=== PATIENT | female | born 1960 | race Caucasian/White ===

== ENCOUNTER 2016-11-01 05:17 | Day surgery (SDC) | payer BC ==
[2016-10-25 14:09] VITALS: BMI 32.0
[~2016-11-01] VITALS: Ht 165.1 cm; Wt 88.6 kg
[~2016-11-01 05:17] MED LIST: COUMADIN PO; LORA-741 PO; LOSARTAN PO; LOVENOX INJ; METF-841 PO; MULT-506 PO; OXYC1TAB3 PO; TRAM-10 PO; ZOLOFT PO; ZOLP5TAB PO
[2016-11-01 05:42] VITALS: BP 138/68; PULSE 79; TEMP 37.2; O2SAT 94; Ht 165.1 cm; Wt 88.6 kg
[2016-11-01 05:56] LABS: PARTIAL THROMBOPLASTIN RATIO 1.3; PROTHROMBIN TIME (PATIENT) 10.4 SECONDS (9.0-12.0)
[2016-11-01] MEDS ORDERED: CEFAZOLIN 2000 MG/60 ML D5W IV SCH (06:00)
[2016-11-01] MEDS ORDERED: LACTATED RINGER'S 1000ML 1,000 ML IV SCH (06:00)
--- NOTE | 2016-11-01 06:11 | History and Physical ---
History & Physical Date Nov 01, 2016. History of Present Illness The patient is a 56 year old female with h/o recurrent endometrial Ca for access port. followed by Dr Dickerson ([facility]) Past Medical/Surgical History Medical Problems: (1) Cholecystectomy (2) History of - section (3) History of - hysterectomy Additional History Kidney Disease: Yes Other: - Nephrostomy tube - DVT RLE- coumadin/ Lovenox Allergies Coded Allergies: No Known Allergies (Unverified , OTHER, 11/01/16) ' Home Medications Scheduled Metformin HCl (Metformin HCl ER), 1,000 MG PO BID Multivitamin (Multivitamin), 1 TAB PO QAM Tramadol (Ultram), 50 MG PO Q4-6H Zolpidem Tartrate (Ambien), 5 MG PO HS [Coumadin], 1 TAB PO QPM [Losartan], 1 TAB PO QAM [Lovenox], 0.9 ML INJ BID [Zoloft], 1 TAB PO HS Scheduled PRN Lorazepam (Ativan), 0.5 MG PO Q8 PRN Oxycodone Ir (Roxicodone Ir), 5 MG PO Q6H PRN for Pain Physical Examination Skin: warm/dry, no rash Eyes: sclerae normal Head: atraumatic Neck: supple Respiratory/Chest: no respiratory distress Cardiovascular: regular rate, rhythm Extremities: normal inspection Neurologic/Psych: alert Diagnosis Recurrent endometrial Ca for port Plan of Treatment For access port
[2016-11-01] MEDS ORDERED: THROMBIN FOR SOLN 20000 UNIT KIT ONE (06:31)
[2016-11-01] MEDS ORDERED: LIDOCAINE HCL 1% 20 ML VIAL ONE (06:31)
[2016-11-01] MEDS ORDERED: CEFAZOLIN SOD 1 GM VIAL ONE (06:31)
[2016-11-01] MEDS ORDERED: HEPARIN SOD (PORCINE) 1000 UNIT/ML 10 ML VIAL ONE (06:31)
[2016-11-01] MEDS ORDERED: MIDAZOLAM HCL 1 MG/ML 2ML VIAL ONE ×2 (07:11→07:15)
[2016-11-01] MEDS ORDERED: FENTANYL CITRATE INJ 50 MCG/1 ML 2 ML VIAL ONE (07:18)
[2016-11-01] MEDS ORDERED: PROPOFOL IV EMULSION 10 MG/ML 20 ML VIAL IV ONE (07:23)
--- NOTE | 2016-11-01 07:46 | Discharge Instructions ---
Discharge Instructions Visit Reason for Visit: Uterine Cancer, Diabetes Discharge Discharge Diagnosis / Problem: A-port placement Discharge Goals Goal(s): Improve disease control Activity Recommendations Activity Limitations: as noted below Shower/Bathe: keep incision dry (for 2 days) Anesthesia . Post Anesthesia Instructions: If you have had General Anesthesia or IV Sedation: * Do not drive today. * Resume driving when surgeon permits. * Do not make important decisions or sign legal documents today. * Call surgeon for: 1. Temperature elevations greater than 101 degrees F. 2. Uncontrollable pain. 3. Excessive bleeding. 4. Persistent nausea and vomiting. 5. Medication intolerance (nausea, vomiting or rash). * For nausea and vomiting use only clear liquids such as: tea, soda, bouillon until nausea subsides, then gradually increase diet as tolerated. * If you have any concerns or questions, call your surgeon's office. If physician is unavailable and it is an emergency, call 911 or go to the nearest emergency room. . Instructions / Follow-Up Instructions / Follow-Up Dr. Stewart's office in 2 weeks for suture removal, [phone] Diet Recommendations Recommended Home Diet: no limitations Pending Studies Studies pending at discharge: no Medical Emergencies . Who to Call and When: Medical Emergencies: If at any time you feel your situation is an emergency, please call 911 immediately. . Non-Emergent Contact Non-Emergency issues call your: Surgeon Call Non-Emergent contact if: you have a fever, temperature is above 101.5, your pain is unusual for you, wound has increased redness . . "Provider Documentation" section prepared by Obie Smith.
[2016-11-01] MEDS ORDERED: FLUMAZENIL 0.1 MG/1 ML 10 ML VIAL IV PRN (08:00)
[2016-11-01] MEDS ORDERED: EpHEDrine SULFATE INJ 50 MG/ML AMP IV PRN (08:00)
[2016-11-01] MEDS ORDERED: ONDANSETRON INJ 2 MG/ML 2 ML VIAL IV PRN ×2 (08:00→08:15)
[2016-11-01] MEDS ORDERED: NALOXONE HCL 0.4 MG/1 ML VIAL/CARP IV PRN (08:00)
[2016-11-01] MEDS ORDERED: PROMETHAZINE HCL INJ 12.5 MG in SODIUM CHLORIDE 0.9% 50ML 50 ML IV PRN (08:00)
[2016-11-01] MEDS ORDERED: FENTANYL CITRATE INJ 50 MCG/1 ML 2 ML VIAL IV PRN (08:00)
[2016-11-01] MEDS ORDERED: ATROPINE SULFATE 0.1 MG/ML 5ML SYR IV PRN (08:00)
[2016-11-01] MEDS ORDERED: LABETALOL HCL IV 5 MG/ML 20ML IV PRN (08:00)
--- NOTE | 2016-11-01 08:05 | [facility] Post Operative Brief Note ---
Immediate Operative Summary Operative Date Nov 01, 2016. Pre-Operative Diagnosis Endometrial Cancer with METS Post-Operative Diagnosis Endometrial Cancer with METS Procedure(s) Performed Aport Insertion Surgeon Dr. Stewart Enrollment Services Dean Surgeon(s) none Estimated Blood Loss 10cc Findings placed via Lt cephalic vein Specimens none per surgeon Anesthesia local/ sedation Complication(s) None Disposition Recovery Room / PACU
[2016-11-01] MEDS ORDERED: HYDR-5688 PO (08:08)
[2016-11-01] MEDS ORDERED: HYDROCODONE/ACETAMOPHEN 5/325MG TAB PO PRN ×2 (08:15)
--- NOTE | 2016-11-01 08:22 | Anesthesiology Progress Note ---
Anesthesia Post Op Note Date & Time Nov 01, 2016 at 08:22 Vital Signs Pain Intensity: 0 Vital Signs Past 12 Hours Date Time Temp Pulse Resp B/P Pulse Ox O2 Delivery O2 Flow Rate FiO2 11/01/16 08:04 36.2 68 17 111/63 96 Nasal Cannula 2 11/01/16 05:42 37.2 79 18 138/68 94 Room Air Notes Mental Status: alert / awake / arousable, participated in evaluation Pt Amnestic to Procedure: Yes Nausea / Vomiting: adequately controlled Pain: adequately controlled Airway Patency, RR, SpO2: stable & adequate BP & HR: stable & adequate Hydration State: stable & adequate Anesthetic Complications: no major complications apparent
--- NOTE | 2016-11-01 08:28 | DIAGNOSTIC IMAGING REPORT ---
SINGLE VIEW CHEST CLINICAL HISTORY: Infusion port placement. FINDINGS: An AP, portable, upright chest radiograph is obtained. No prior studies are available for comparison at the time of dictation. The examination is degraded by portable technique, large body habitus, and patient rotation. A left subclavian central venous infusion port has been placed. The tip of the catheter projects over the SVC. The cardiomediastinal silhouette is unremarkable. Nonspecific interstitial thickening is noted. Linear atelectasis is seen at the left lung base. The lungs and pleural spaces are otherwise clear. No pneumothorax is seen. The skeletal structures are osteopenic. Degenerative change is noted throughout the thoracic spine. There is calcific tendinopathy is noted in the left shoulder. IMPRESSION: 1. A left subclavian central venous infusion port has been placed. No pneumothorax is seen post procedure. 2. There is no airspace consolidation or pleural effusion. Electronically signed by: Jacek Ramirez M.D. 11/01/2016 8:26 AM Dictated Date/Time: 11/01/2016 8:25 AM
[2016-11-01 08:42] VITALS: BP 108/56; PULSE 66; TEMP 37.2; O2SAT 95
[2016-11-01 09:15] VITALS: BP 116/50; PULSE 77; TEMP 36.9; O2SAT 96
--- NOTE | 2016-11-01 16:22 | OPERATIVE REPORT ---
DATE OF OPERATION: 11/01/2016 NAME OF OPERATION: Access port placement. PREOPERATIVE DIAGNOSIS: Recurrent endometrial cancer. POSTOPERATIVE DIAGNOSIS: Same. STAFF SURGEON: Dr. Stewart. ANESTHESIA: 1% plain lidocaine with sedation. DESCRIPTION OF PROCEDURE: The patient was brought in the operating room and placed on the operating table in supine position. Her chest was prepped and draped in usual fashion. The left chest was approached, 1% plain lidocaine was used to anesthetize the skin and subcutaneous tissue over the left deltopectoral groove. Incision was made, carrying dissection down through significant adipose tissue, identifying the cephalic vein, it was ligated distally using 2-0 silk suture. It was then opened and a catheter passed under fluoroscopy into the distal superior vena cava. It was then secured using 2-0 silk suture. The catheter was aspirated and flushed with heparinized solution. Pocket was fashioned in the subcutaneous tissue, the port then attached to the catheter, placed into the pocket, secured using 3-0 Prolene suture. The port was aspirated and flushed with heparinized solution. The site was irrigated with antibiotic solution. Subcutaneous tissue reapproximated using 2-0 chromic catgut suture, then the skin reapproximated using 4-0 nylon suture. Dressing applied and patient transferred to recovery room in stable condition. I attest to the content of the Intraoperative Record and any orders documented therein. Any exceptio ns are noted below.
[2017-02-14] MEDS ORDERED: NRN300 PO (15:14)
[2017-02-14] MEDS ORDERED: CYM30 PO (15:14)
[2017-02-14] MEDS ORDERED: OXYC1TAB3 PO (15:14)
[2017-02-14] MEDS ORDERED: MRPSR15 PO (15:14)
[2017-02-14] MEDS ORDERED: CPR500 PO (15:19)
[2017-03-13] MEDS ORDERED: GABA-113 PO (08:06)
[2017-03-13] MEDS ORDERED: OXYC1TAB3 PO (08:06)
[2017-03-13] MEDS ORDERED: CYM/30 PO (08:07)
[2017-04-13] MEDS ORDERED: PRLSR20 PO (10:53)
[2017-04-13] MEDS ORDERED: CYCL10TA6 PO (10:53)
[2017-04-13] MEDS ORDERED: OXYC20TA50 PO (10:53)
[2017-04-13] MEDS ORDERED: GABA-113 PO (10:53)
[2017-04-13] MEDS ORDERED: SENN-61 PO (10:53)
[2017-04-13] MEDS ORDERED: FAMO20TA11 PO (10:53)
[2017-04-13] MEDS ORDERED: ACET-1311 PO (10:53)
[2017-04-13] MEDS ORDERED: ENOX80IN SQ (10:53)
[2017-04-23] MEDS ORDERED: FNTTP50 TD (14:20)
== END 2016-11-01 09:38 | disposition home or self-care (01) ==
LOC: C.ACU 05:17
PROVIDERS: ATTEND Surgery
DX: C54.1 Malignant neoplasm of endometrium (principal); I82.409 Acute embolism and thrombosis of unspecified deep veins of unspecified lower extremity; E11.9 Type 2 diabetes mellitus without complications; Z90.710 Acquired absence of both cervix and uterus; Z98.890 Other specified postprocedural states; Z79.01 Long term (current) use of anticoagulants

== ENCOUNTER 2017-01-27 16:07 | Emergency (ER) | payer BC ==
[~2017-01-27 16:07] MED LIST changes: +HYDR-5688 PO
[2017-01-27 16:13] VITALS: TEMP 36.8; Ht 162.6 cm
--- NOTE | 2017-01-27 17:15 | EMERGENCY ROOM VISIT NOTE ---
History Report prepared by Kina: Brant Mittal Under the Supervision of: Dr. Luis Alfredo Ram M.D. First contact with patient: 16:16 Chief Complaint: HAND PAIN/INJURY Stated Complaint: L HAND NUMB History of Present Illness The patient is a 56 year old female who presents to the Emergency Room with complaints of worsening left handed numbness that began earlier today. She states that she was doing her makeup earlier this afternoon when she suddenly started experiencing numbness in the hand. The patient denies any recent traumatic injury and still has full range of motion. 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 She also admits to a history of reoccurring uterine cancer, which is being treated with chemotherapy every three weeks. She reports that the last time she had chemotherapy was approximately one week ago. She denies any surgery for treatment stating "it hasn't come to that yet". The patient also reports that she has a nephrostomy tube placed in her back that was changed yesterday at [facility] in [place]. She follows with Dr. Coles of Oncology in [place] and Dr. Johan Dickerson here in [place]. The patient states that she recently began seeing a physical therapist for lymphedema in her legs and notes she is diabetic. She takes Metformin, but denies checking her levels recently as she states she finds out her BSG when she has labs drawn before chemotherapy. Source of History: patient, friend Onset: prior to arrival Position: hand (left) Symptom Intensity: 0/10 Quality: numbness Review of Systems See HPI for pertinent positives & negatives. A total of 10 systems reviewed and were otherwise negative. Past Medical & Surgical Medical Problems: (1) Cholecystectomy (2) History of - section (3) History of - hysterectomy Family History Cancer Gallbladder disease Heart disease Kidney stones Social History Smoking Status: Never Smoker Alcohol Use: occasionally Drug Use: none Marital Status: Housing Status: lives with family Occupation Status: employed Current/Historical Medications Scheduled Metformin HCl (Metformin HCl ER), 1,000 MG PO BID Multivitamin (Multivitamin), 1 TAB PO QAM Tramadol (Ultram), 50 MG PO Q4-6H Zolpidem Tartrate (Ambien), 5 MG PO HS [Coumadin], 1 TAB PO QPM [Losartan], 1 TAB PO QAM [Lovenox], 0.9 ML INJ BID [Zoloft], 1 TAB PO HS Scheduled PRN Hydrocodone/Acetaminophen 5MG/325MG ([place] 5MG/325MG), 1-2 TABLET PO q 6 hrs PRN for Pain Lorazepam (Ativan), 0.5 MG PO Q8 PRN Oxycodone Ir (Roxicodone Ir), 5 MG PO Q6H PRN for Pain Allergies Coded Allergies: No Known Allergies (Unverified , OTHER, 11/01/16) ' Physical Exam Vital Signs Date Time Temp Pulse Resp B/P Pulse Ox O2 Delivery O2 Flow Rate FiO2 01/27/17 17:24 90 18 107/52 99 01/27/17 16:13 36.8 103 20 135/74 98 Room Air Physical Exam GENERAL: Patient is a healthy-appearing well-nourished HEAD: Normocephalic atraumatic EYES: Ocular movements intact pupils equal and react to light OROPHARYNX mucous membranes are moist no exudates present no erythema or edema present NECK: Supple no nuchal rigidity CHEST: Good equal expansion LUNGS: Clear and equal to auscultation CARDIAC: Normal S1 and S2 ABDOMEN: Soft nontender no guarding BACK: No CVA tenderness EXTREMITIES: Good range of motion, good merchandise presentation associate. Neurovascularly intact. Good capillary refill, good strength of wrist, elbow and shoulder. No clubbing, cyanosis or edema. NEURO: Patient is following commands is answering questions appropriately. Alert and oriented x3 Cranial Nerves 2-12 grossly intact Medical Decision & Procedures Laboratory Results Test 01/27/17 16:59 Bedside Glucose 152 mg/dl (70-90) Labs reviewed by ED physician. ED Course 1620: Past medical records reviewed. The patient was evaluated in room B05. A complete history and physical examination was performed. 1717: I reevaluated the patient and she is doing well. I discussed her results and discharge instructions and she verbalized complete understanding and agreement. Medical Decision Blood Pressure Screening: Patient was found to have an elevated blood pressure and was referred to their primary care doctor for recheck and further treatment Medication Reconciliation: I attest that I have personally reviewed the patient' s current medication list. This is a 56-year-old female who presents emergency department complaining of left hand numbness. The patient is currently receiving chemotherapy and was warned of neuropathies that were going to develop in her extremities. She has no evidence of weakness in her manager deli strength is actually equal she has good capillary refill. The patient's blood sugar is slightly elevated and she does not wish to be placed and steroids. She was placed in a cock-up splint and I recommended we follow-up with both oncology as well as the orthopedics. Patient family were in agreement with the treatment plan. Impression Primary Impression: Numbness of left hand Scribe Attestation The scribe's documentation has been prepared under my direction and personally reviewed by me in its entirety. I confirm that the note above accurately reflects all work, treatment, procedures, and medical decision making performed by me. Departure Information Dispostion Home / Self-Care Referrals Romario Gaspar M.D. (PCP) Patient Instructions My [facility] Additional Instructions Follow up with Dr Paniagua's office Sunday; Dr Dickerson's office Sunday You were found to have an elevated blood pressure today (>120 sytolic or >90 diastolic). Per medicare guidelines, you need to follow up with this blood pressure screening with your Primary Care Physician (PCP). For a new PCP call [phone]. You have been examined and treated today on an emergency basis only. This is not a substitute for, or an effort to provide, complete comprehensive medical care. It is impossible to recognize and treat all injuries or illnesses in a single emergency department visit. It is therefore important that you follow up closely with Dr Gaspar. Call as soon as possible for an appointment. Thank you for your time and consideration. I look forward to speaking with you again soon. Please don't hesitate to call us if you have any questions.
[2017-01-27 17:24] VITALS: BP 107/52; PULSE 90; O2SAT 99
[2017-02-14] MEDS ORDERED: CYM30 PO (15:14)
[2017-02-14] MEDS ORDERED: NRN300 PO (15:14)
[2017-02-14] MEDS ORDERED: MRPSR15 PO (15:14)
[2017-02-14] MEDS ORDERED: OXYC1TAB3 PO (15:14)
[2017-02-14] MEDS ORDERED: CPR500 PO (15:19)
[2017-03-13] MEDS ORDERED: GABA-113 PO (08:06)
[2017-03-13] MEDS ORDERED: OXYC1TAB3 PO (08:06)
[2017-03-13] MEDS ORDERED: CYM/30 PO (08:07)
[2017-04-13] MEDS ORDERED: ACET-1311 PO (10:53)
[2017-04-13] MEDS ORDERED: FAMO20TA11 PO (10:53)
[2017-04-13] MEDS ORDERED: ENOX80IN SQ (10:53)
[2017-04-13] MEDS ORDERED: SENN-61 PO (10:53)
[2017-04-13] MEDS ORDERED: GABA-113 PO (10:53)
[2017-04-13] MEDS ORDERED: PRLSR20 PO (10:53)
[2017-04-13] MEDS ORDERED: CYCL10TA6 PO (10:53)
[2017-04-13] MEDS ORDERED: OXYC20TA50 PO (10:53)
[2017-04-23] MEDS ORDERED: FNTTP50 TD (14:20)
== END 2017-01-27 17:27 | disposition home or self-care (01) ==
LOC: C.EDB 16:09
DX: R20.2 Paresthesia of skin (principal); Z93.6 Other artificial openings of urinary tract status; Z90.710 Acquired absence of both cervix and uterus; Z90.49 Acquired absence of other specified parts of digestive tract; Z79.4 Long term (current) use of insulin; Z79.01 Long term (current) use of anticoagulants; Z79.899 Other long term (current) drug therapy; Z80.9 Family history of malignant neoplasm, unspecified; Z83.79 Family history of other diseases of the digestive system; Z82.49 Family history of ischemic heart disease and other diseases of the circulatory system; Z84.1 Family history of disorders of kidney and ureter

== ENCOUNTER 2017-02-09 09:54 | Inpatient (IN) | payer BC ==
[~2017-02-09] VITALS: Ht 165.1 cm; Wt 78.7 kg
[2017-02-09] VITALS (13 sets, daily range): BP systolic 120–158; BP diastolic 64–84; PULSE 78–96; TEMP 36.7–37.5; O2SAT 94–100; BMI 29.6
[2017-02-09] MEDS ORDERED: MoRPHine SULFATE 4 MG/ML 1 ML CARP\\VIAL IV STA (10:33)
[2017-02-09] MEDS ORDERED: ONDANSETRON INJ 2 MG/ML 2 ML VIAL IV STA (10:33)
[2017-02-09] MEDS ORDERED: SODIUM CHLORIDE 0.9% 1000ML 1,000 ML IV STA (10:33)
[2017-02-09] MEDS ORDERED: SODIUM CHLORIDE 0.9% 1000ML 1,000 ML IV ONE (10:33)
--- NOTE | 2017-02-09 10:34 | EMERGENCY ROOM VISIT NOTE ---
History Report prepared by Kina: Lexus Birch Under the Supervision of: Dr. Sridhar Wong M.D. First contact with patient: 10:17 Chief Complaint: PAIN (GENERALIZED) Stated Complaint: PAIN ALL OVER History of Present Illness The patient is a 56 year old female who presents to the Emergency Room with complaints of persistent generalized pain that began two days ago. She currently rates her discomfort as a 6/10 in severity. The patient reports that she has a history of endometrial cancer, stating that she was diagnosed in August. She states that the cancer is in her lymph nodes which has caused damage to her ureter. The patient states that she has had a nephrostomy tube placed on her right flank. She reports that after a scheduled cleaning 2 weeks ago she has noticed intermittent low-grade fevers at night. The patient states that two days ago she went to [place] after noticing a yellow and red discharge from her nephrostomy tube site. The patient states that she had her tube replaced and notes that the tube has worked fine since then. She reports that she has noticed back pain, abdominal pain, flank pain, and groin pain since the replacement. The patient states that she has had hematuria. She denies any chest pain, cough, nausea or vomiting. The patient reports that she takes Lovenox daily due to her history of DVT. The patient states that her last chemotherapy treatment was three weeks ago, and was supposed to have a treatment today. She states that she is now scheduled to have her next chemotherapy treatment next week. Source of History: patient Onset: two days ago Position: other (generalized) Symptom Intensity: 6/10 Timing: other (persistent) Associated Symptoms: + abdominal pain, + back pain, + urinary symptoms ( hematuria), No cough, No chest pain, No nausea, No vomiting Note: Associated Symptoms: flank pain, groin pain Review of Systems See HPI for pertinent positives & negatives. A total of 10 systems reviewed and were otherwise negative. 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 Nurse's notes were reviewed and I agree with. Family History Cancer Gallbladder disease Heart disease Kidney stones Social History Smoking Status: Never Smoker Alcohol Use: occasionally Drug Use: none Marital Status: Housing Status: lives with family Occupation Status: employed Current/Historical Medications Scheduled Cephalexin Monohydrate (Keflex), 500 MG PO BID Dexamethasone (Decadron), 20 MG PO DIRECTED Docusate Sodium (Docusate Sodium), 50 MG PO BID Enoxaparin (Lovenox), 0.9 ML SQ Q12 Lorazepam (Ativan), 0.5 MG PO Q6 Losartan Potassium (Cozaar), 50 MG PO DAILY Metformin HCl (Metformin HCl ER), 1,000 MG PO BID Morphine Cont Rel (Ms Contin), 15 MG PO Q12 Polyethylene Glycol 3350 (Miralax), 17 GM PO DAILY Sertraline (Zoloft), 50 MG PO DAILY Scheduled PRN Ondansetron Hcl (Zofran), 8 MG PO TID PRN for Nausea Oxycodone Ir (Roxicodone Ir), 5 MG PO Q6H PRN for Pain Prochlorperazine Maleate (Compazine), 10 MG PO Q6H PRN for Nausea Zolpidem Tartrate (Ambien), 10 MG PO HS PRN for Sleep Allergies Coded Allergies: No Known Allergies (Unverified , OTHER, 11/01/16) ' Physical Exam Vital Signs Date Time Temp Pulse Resp B/P (MAP) Pulse Ox O2 Delivery O2 Flow Rate FiO2 02/09/17 12:55 98 Room Air 02/09/17 11:56 82 20 129/62 98 Room Air 02/09/17 09:57 36.6 91 20 131/69 99 Room Air Physical Exam General: Well developed well nourished intermittent teary eyed middle aged female who has multiple complaints, in no acute distress, breathing comfortably on room air. Normal speech HEENT: Normal cephalic atraumatic. Pupils are equal round and reactive to light. Extraocular movements are intact. Oropharynx is pink with moist mucous membranes. No swelling of the mouth lips or tongue. Neck: Supple with a midline trachea. No meningeal signs or stiffness, no JVD or bruits. No Stridor. Chest: Clear to auscultation bilaterally. No wheezes or rhonchi. No increased work of breathing. Heart: regular rate and rhythm. Abdomen: Soft nontender, nondistended without rebound guarding or rigidity. Extremities: No cyanosis clubbing or edema. No calf tenderness or assymetry Spine/Back. Nephrostomy tube in right flank, no redness, warmth, or drainage. Non tender to palpation. No CVA tenderness Skin: Good turgor without rashes. Neurologic exam: Cranial nerves two through 12 are intact. Motor and sensation are intact and symmetrical throughout. Medical Decision & Procedures ER Provider Diagnostic Interpretation: CT results as stated below per my review and radiologist interpretation: ABDOMEN AND PELVIS CT WITH IV CONTRAST CT DOSE: 686.10 mGy.cm HISTORY: Postoperative pain eval for hematoma, bleeding TECHNIQUE: Multiaxial CT images of the abdomen and pelvis were performed following the use of intravenous contrast. COMPARISON STUDY: None. FINDINGS: Minimal atelectasis right base. Slight biliary ductal prominence possibly on the basis of prior cholecystectomy. Spleen and pancreas appear unremarkable. Left kidney enhances uniformly. There is a right-sided nephrostomy catheter. Appears to be a right ureteral stent extending to the bladder. There is a heterogeneous masslike process lateral right pelvic sidewall region. This measures approximately 10 x 10 x 12 cm. This appears to displace the right ureter and associated stent medially. The mass is heterogeneous. It is potentially neoplastic versus hemorrhagic. Bowel pattern appears nonobstructive. There are findings of chronic colonic diverticulosis. There multiple injection granulomas along the anterior abdominal wall. The right kidney is somewhat atrophic. The right renal pelvis is moderately distended. IMPRESSION: 1. Large complex soft tissue mass right lateral pelvic sidewall region measuring 10 x 10 x 12 cm. 2. This potentially represents hematoma, neoplastic mass, versus partially hemorrhagic neoplastic mass. 3. This mass displaces the right ureter in the right ureteral stent medially. 4. Moderate atrophy right kidney with distention of the right renal pelvis. 5. Operative changes consistent with a prior hysterectomy, right-sided nephrostomy, as well as right ureteral stent placement Electronically signed by: Hermes Herzog M.D. 02/09/2017 12:37 PM Dictated Date/Time: 02/09/2017 12:26 PM Laboratory Results 02/09/17 10:44 Red Blood Count 2.08, Mean Corpuscular Volume 91.8, Mean Corpuscular Hemoglobin 30.3, Mean Corpuscular Hemoglobin Concent 33.0, Mean Platelet Volume 8.5, Neutrophils (%) (Auto) 72.5, Lymphocytes (%) (Auto) 19.3, Monocytes (%) (Auto) 7.3, Eosinophils (%) (Auto) 0.6, Basophils (%) (Auto) 0.0, Neutrophils # (Auto) 2.48, Lymphocytes # (Auto) 0.66, Monocytes # (Auto) 0.25, Eosinophils # (Auto) 0.02, Basophils # (Auto) 0.00 02/09/17 10:44 Test 02/09/17 10:44 02/09/17 11:15 White Blood Count 3.42 K/uL (4.8-10.8) Red Blood Count 2.08 M/uL (4.2-5.4) Hemoglobin 6.3 g/dL (12.0-16.0) Hematocrit 19.1 % (37-47) Mean Corpuscular Volume 91.8 fL (80-100) Mean Corpuscular Hemoglobin 30.3 pg (25-34) Mean Corpuscular Hemoglobin Concent 33.0 g/dl (32-36) Platelet Count 69 K/uL (130-400) Mean Platelet Volume 8.5 fL (7.4-10.4) Neutrophils (%) (Auto) 72.5 % Lymphocytes (%) (Auto) 19.3 % Monocytes (%) (Auto) 7.3 % Eosinophils (%) (Auto) 0.6 % Basophils (%) (Auto) 0.0 % Neutrophils # (Auto) 2.48 K/uL (1.4-6.5) Lymphocytes # (Auto) 0.66 K/uL (1.2-3.4) Monocytes # (Auto) 0.25 K/uL (0.11-0.59) Eosinophils # (Auto) 0.02 K/uL (0-0.5) Basophils # (Auto) 0.00 K/uL (0-0.2) RDW Standard Deviation 60.5 fL (36.4-46.3) RDW Coefficient of Variation 17.9 % (11.5-14.5) Immature Granulocyte % (Auto) 0.3 % Immature Granulocyte # (Auto) 0.01 K/uL (0.00-0.02) Platelet Estimate DECREASED Red Blood Cell Morphology Unremarkable Anion Gap 6.0 mmol/L (3-11) Estimated GFR () 113.7 Estimated GFR (Non- 98.1 BUN/Creatinine Ratio 23.4 (10-20) Calcium Level 9.3 mg/dl (8.5-10.1) Total Bilirubin 0.3 mg/dl (0.2-1) Direct Bilirubin 0.1 mg/dl (0-0.2) Aspartate Amino Transf (AST/SGOT) 20 U/L (15-37) Alanine Aminotransferase (ALT/SGPT) 13 U/L (12-78) Alkaline Phosphatase 121 U/L (45-117) Total Protein 7.4 gm/dl (6.4-8.2) Albumin 3.3 gm/dl (3.4-5.0) Lipase 103 U/L (73-393) Urine Color RED Urine Appearance TURBID (CLEAR) Urine pH (4.5-7.5) Urine Specific [place] 1.014 (1.000-1.030) Urine Protein (NEG) Urine Glucose (UA) (NEG) Urine Ketones (NEG) Urine Occult Blood (NEG) Urine Nitrite (NEG) Urine Bilirubin (NEG) Urine Urobilinogen (NEG) Urine Leukocyte Esterase (NEG) Urine RBC >30 /hpf (0-4) Urine WBC >30 /hpf (0-5) Urine Epithelial Cells 0-5 /lpf (0-5) Urine Bacteria 2+ (NEG) Laboratory studies as stated above per my review. Medications Administered Medications (Trade) Dose Ordered Sig/Alivia Route Start Time Stop Time Status Last Admin Dose Admin Sodium Chloride 1,000 ml @ 999 mls/hr Q1H1M STAT IV 02/09/17 10:33 02/09/17 11:33 DC 02/09/17 10:52 999 MLS/HR Sodium Chloride 1,000 ml @ 150 mls/hr Q6H40M ONCE IV 02/09/17 10:33 02/09/17 14:58 DC 02/09/17 11:58 150 MLS/HR Morphine Sulfate (MoRPHine SULFATE INJ) 4 mg NOW STAT IV 02/09/17 10:33 02/09/17 10:35 DC 02/09/17 10:54 4 MG Ondansetron HCl (Zofran Inj) 4 mg NOW STAT IV 02/09/17 10:33 02/09/17 10:35 DC 02/09/17 10:52 4 MG ED Course 1018: Past medical records reviewed. The patient was evaluated in room B10, and a complete history and physical examination were performed. 1033: Ordered Zofran Inj 4 mg IV, Morphine Sulfate 4 mg IV, Sodium Chloride 1000 ml @ 150 mls/hr IV, Sodium Chloride 1000 ml @ 999 mls/hr IV. 1115: I reevaluated the patient and she is resting comfortably. She provided a urine sample that is grossly bloody. 1145: I reevaluated the patient and she is resting comfortably. I discussed the exam findings with her thus far. Dr. Dickerson will be consulted. 1147: I discussed the patients case with Dr. Dickerson, Oncology. He agrees that the patient should be transfused and that the patient should have a CT scan. 1155: I reevaluated the patient and discussed the conversation I had with Dr. Dickerson. She agrees to have a CT scan and is in agreement with the treatment plan. She will be evaluated for further treatment. 1246: I reevaluated the patient and she is resting comfortably. I discussed the exam findings with her and I discussed the treatment plan. She verbalized complete understanding and agreement. She will be evaluated for further treatment. 1254: I discussed the patients case with Dr. Maza [facility]. He is going to evaluate the patient for further treatment. Medical Decision Differentials include, but are not limited to; infection, cancer complication, anemia, hematoma, UTI Blood pressure Screening: Patient was found to have normal blood pressure on screening and does not require follow-up. Medication Reconciliation: I attest that I have personally reviewed the patient' s current medication list. This patient comes in as described above. She does have a complex medical history with endometrial cancer in her pelvis and has required a percutaneous drain. She had a drain changed 2 days ago and has not felt well since then. It has been working she's had intermittent hematuria. No fever. We did review her urine culture from 2 days ago from the [facility]. She does have gram negative rods, specificity pending. Blood work was obtained here. She was found to be significantly anemic with a hemoglobin 6.3, her platelets are also low at this mid 60s. She has no elevation of her white count. She was given IV morphine as well as IV fluids and IV Zofran. We did give her IV antibiotics as well with IV cefepime. I do think she needs blood transfusion as well. I discussed with Dr. Dickerson, her oncologist, and she agrees with transfusing her blood and does not feel she needs irradiated blood. I ordered a blood transfusion to be started in the ER. The patient freely consents I explained the risks, benefits with the risk pain infection or reaction. She aknowledges this. The CAT scan shows the mass in the pelvis which is consistent with her previous likely diagnosis cancer. There is no evidence to suggest acute hemorrhage at this point. I did discuss the case with Dr. Maza and the patient will be admitted for further treatment and evaluation. Consults Time Called: 1143 Consulting Physician: Dr. Dickerson, Oncology Returned Call: [phone] I discussed the patients case with Dr. Dickerson, Oncology. He agrees that the patient should be transfused and that the patient should have a CT scan. Additional Consults: Time Called: 1252 Consulted Physician: Cece Almazan Returned Call: [phone] Additional Comments: I discussed the patients case with Cece Almazan. He is going to evaluate the patient for further treatment. Impression Primary Impression: Anemia Additional Impressions: UTI (urinary tract infection) Endometrial cancer Scribe Attestation The scribe's documentation has been prepared under my direction and personally reviewed by me in its entirety. I confirm that the note above accurately reflects all work, treatment, procedures, and medical decision making performed by me. Departure Information Dispostion Being Evaluated By Hospitalist Romario Post M.D. (PCP) Problem Qualifiers
[2017-02-09] MEDS ORDERED: POLY335019 PO (10:54)
[2017-02-09] MEDS ORDERED: SERT50TA PO (10:54)
[2017-02-09] MEDS ORDERED: DXM/4 PO (10:54)
[2017-02-09] MEDS ORDERED: MORP15TA19 PO (10:54)
[2017-02-09] MEDS ORDERED: PROC1TAB5 PO (10:54)
[2017-02-09] MEDS ORDERED: DOCU1TAB6 PO (10:54)
[2017-02-09] MEDS ORDERED: ONDA8TAB6 PO (10:54)
[2017-02-09] MEDS ORDERED: LOSA50TA6 PO (10:54)
[2017-02-09] MEDS ORDERED: ENOX100I SQ (10:54)
[2017-02-09] MEDS ORDERED: ASCA500 PO (10:59)
[2017-02-09 11:20] LABS: BLOOD UREA NITROGEN 15 mg/dl (7-18); BUN/CREATININE RATIO 23.4 (10-20); CALCIUM 9.3 mg/dl (8.5-10.1); CARBON DIOXIDE 30 mmol/L (21-32); CHLORIDE 100 mmol/L (98-107); CREATININE 0.66 mg/dl (0.60-1.20); GLUCOSE 166 mg/dl (70-99); POTASSIUM 4.3 mmol/L (3.5-5.1); SODIUM 136 mmol/L (136-145)
[2017-02-09 11:23] LABS: ALKALINE PHOSPHATASE 121 U/L (45-117); ALT/SGPT 13 U/L (12-78); AST/SGOT 20 U/L (15-37)
[2017-02-09 11:33] LABS: HEMATOCRIT 19.1 % (37-47); MEAN CELL VOLUME 91.8 fL (80-100); MEAN CORPUSCULAR HEMOGLOBIN 30.3 pg (25-34); MEAN PLATELET VOLUME 8.5 fL (7.4-10.4); PLATELET COUNT 69 K/uL (130-400); RED BLOOD COUNT 2.08 M/uL (4.2-5.4); WHITE BLOOD COUNT 3.42 K/uL (4.8-10.8)
[2017-02-09 11:39] LABS: MANUAL MICROSCOPIC REQUIRED? YES; REVIEW REQ? NO; SULFASALICYLIC ACID POS (NEG); URINE APPEARANCE TURBID (CLEAR); URINE COLOR RED
[2017-02-09 11:40] LABS: URINE SPECIFIC GRAVITY 1.014 (1.000-1.030)
[2017-02-09 11:45] LABS: URINE BACTERIA 2+ (NEG); URINE RBC >30 /hpf (0-4); URINE WBC >30 /hpf (0-5)
[2017-02-09 11:52] LABS: COMPLETE YES; EOS % 0.6 %; IG% 0.3 %; LYMPH % 19.3 %; LYMPH ABS # 0.66 K/uL (1.2-3.4); MONO % 7.3 %; NEUT % 72.5 %; PLT ESTIMATE DECREASED
[2017-02-09] MEDS ORDERED: OPTIRAY 320 IV PRN (12:00)
--- NOTE | 2017-02-09 12:09 | Pharmacy Progress Note ---
ED Pharmacist Culture FollowUp Date of Service: Feb 09, 2017. Microbiology * 02/07/17 1241: Nephrostomy culture (at [facility]) * 100-999 colonies/mL non-lactose fermenting Gram negative rods (per [facility] records) * Oxidase negative (per verbal report by Cece Escamilla microbiology [phone] * Possible organism identification later today (02/09). Likely susceptibilities available tomorrow (02/10) * Antibiotics * On cephalexin 500 mg po BID (per [facility]), 1st dose 6/8 AM (per patient) Assessment * Potential organisms * Proteus (more common) or Serratia (less common) - both non-lactose fermenters , oxidase negative * Not likely E. coli or Klebsiella (ferment lactose) or Pseudomonas (oxidase positive) * Antibiotics * Cephalexin may cover Proteus, but will not cover Serratia. Other cephalosporins have superior Gram negative activity * Cefepime will very likely cover both Proteus and Serratia Recommendation * Cefepime * Follow-up with [facility] Microbiology r/e final identification and sensitivities (likely available tomorrow, 02/10)
[2017-02-09] MEDS ORDERED: CEPH500C PO (12:12)
--- NOTE | 2017-02-09 12:38 | DIAGNOSTIC IMAGING REPORT ---
ABDOMEN AND PELVIS CT WITH IV CONTRAST CT DOSE: 686.10 mGy.cm HISTORY: Postoperative pain eval for hematoma, bleeding TECHNIQUE: Multiaxial CT images of the abdomen and pelvis were performed following the use of intravenous contrast. COMPARISON STUDY: None. FINDINGS: Minimal atelectasis right base. Slight biliary ductal prominence possibly on the basis of prior cholecystectomy. Spleen and pancreas appear unremarkable. Left kidney enhances uniformly. There is a right-sided nephrostomy catheter. Appears to be a right ureteral stent extending to the bladder. There is a heterogeneous masslike process lateral right pelvic sidewall region. This measures approximately 10 x 10 x 12 cm. This appears to displace the right ureter and associated stent medially. The mass is heterogeneous. It is potentially neoplastic versus hemorrhagic. Bowel pattern appears nonobstructive. There are findings of chronic colonic diverticulosis. There multiple injection granulomas along the anterior abdominal wall. The right kidney is somewhat atrophic. The right renal pelvis is moderately distended. IMPRESSION: 1. Large complex soft tissue mass right lateral pelvic sidewall region measuring 10 x 10 x 12 cm. 2. This potentially represents hematoma, neoplastic mass, versus partially hemorrhagic neoplastic mass. 3. This mass displaces the right ureter in the right ureteral stent medially. 4. Moderate atrophy right kidney with distention of the right renal pelvis. 5. Operative changes consistent with a prior hysterectomy, right-sided nephrostomy, as well as right ureteral stent placement Electronically signed by: Hermes Herzog M.D. 02/09/2017 12:37 PM Dictated Date/Time: 02/09/2017 12:26 PM
[2017-02-09] MEDS ORDERED: CEFEPIME IV 2000 MG in DEXTROSE 5% 100ML IV STA (13:25)
[2017-02-09] MEDS ORDERED: ONDANSETRON INJ 2 MG/ML 2 ML VIAL IV PRN (13:30)
[2017-02-09] MEDS ORDERED: ACETAMINOPHEN 325 MG TAB PO PRN (13:30)
[2017-02-09] MEDS ORDERED: ZOLP10TA PO (13:42)
[2017-02-09] MEDS ORDERED: GLUCOSE 40% GEL 15 GM TUBE PO PRN (13:45)
[2017-02-09] MEDS ORDERED: GLUCOSE 10 TABS/TUBE PO PRN (13:45)
[2017-02-09] MEDS ORDERED: MoRPHine SULFATE 2 MG/ML CARP IV PRN (13:45)
[2017-02-09] MEDS ORDERED: DEXTROSE 50% 50 ML SYR IV PRN (13:45)
[2017-02-09] MEDS ORDERED: GLUCAGON FOR INJ 1 MG VIAL SQ PRN (13:45)
[2017-02-09] MEDS ORDERED: ZOLPIDEM TARTRATE 10 MG TAB PO PRN (13:45)
[2017-02-09] MEDS ORDERED: PROCHLORPERAZINE MALEATE 10 MG TAB PO PRN (13:45)
[2017-02-09] MEDS ORDERED: CEFEPIME CONSULT ACTIVE PRN ×2 (14:00)
[2017-02-09] MEDS ORDERED: INSULIN ASPART 100 UNITS/ML 3 ML PEN SC SCH (16:00)
--- NOTE | 2017-02-09 16:13 | History and Physical ---
History & Physical Date & Time of Service: Feb 09, 2017 at 13:45 Chief Complaint: Pain All Over Primary Care Physician: Romario Gaspar M.D. History of Present Illness Source: patient, clinic records This is a 56 year old female with PMH of recurrent endometrial cancer on chemo, hypertension, DM 2, right percutaneous nephrostomy for hydronephrosis in 10/2016 , hx DVT RLE in 09/2016 on Lovenox, and other problems listed below who presents to the ED for right flank pain. Pt follows with Dr. Gaspar for primary care and Dr. Dickerson for oncology. Last chemo with pacliteaxel and carboplatin was 3 weeks ago. She has also been treated with prophylactic Neulasta. Pt was seen at [facility] 2 days ago for drainage around right nephrostomy tube site and had the tube exchanged. She was placed on Keflex since that time. Urine culture from 02/07/17 grew 100 TO 999 colonies/mL non lactose fermenting gram negative rods. Since 2 days ago patient reports right flank pain described as ache, currently improved after receiving IV morphine in ER. She reports annelise hematuria x 2 days. No other bleeding noticed except drop of blood blowing nose in ER. Admits to feeling tired. Denies fever, chills, dizziness, JAIMES, URI symptoms, cough, SOB, chest pain, abdominal pain, N/V/D, dysuria, increasing edema, calf pain. 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 Surgical Problems: (1) H/O blepharoplasty Status: Chronic (2) History of ureter stent Status: Chronic (3) S/P appendectomy Status: Chronic (4) S/P section Status: Chronic (5) S/P cholecystectomy Status: Chronic (6) S/P JESÚS-BSO Status: Chronic Family History Cancer Gallbladder disease Heart disease MOTHER Kidney stones Social History Smoking Status: Never Smoker Alcohol Use: none Marital Status: Housing status: lives with family (daughter) Occupational Status: employed Multi-Drug Resistant Organisms History of MDRO: No Allergies Coded Allergies: No Known Allergies (Unverified , OTHER, 11/01/16) ' Home Medications Scheduled Cephalexin Monohydrate (Keflex), 500 MG PO BID Dexamethasone (Decadron), 20 MG PO DIRECTED Docusate Sodium (Docusate Sodium), 50 MG PO BID Enoxaparin (Lovenox), 0.9 ML SQ Q12 Lorazepam (Ativan), 0.5 MG PO Q6 Losartan Potassium (Cozaar), 50 MG PO DAILY Metformin HCl (Metformin HCl ER), 1,000 MG PO BID Morphine Cont Rel (Ms Contin), 15 MG PO Q12 Polyethylene Glycol 3350 (Miralax), 17 GM PO DAILY Sertraline (Zoloft), 50 MG PO DAILY Scheduled PRN Ondansetron Hcl (Zofran), 8 MG PO TID PRN for Nausea Oxycodone Ir (Roxicodone Ir), 5 MG PO Q6H PRN for Pain Prochlorperazine Maleate (Compazine), 10 MG PO Q6H PRN for Nausea Zolpidem Tartrate (Ambien), 10 MG PO HS PRN for Sleep Review of Systems Ten systems reviewed and negative except as noted in HPI. Physical Exam Vital Signs Date Time Temp Pulse Resp B/P (MAP) Pulse Ox O2 Delivery O2 Flow Rate FiO2 02/09/17 13:43 80 20 123/56 99 Room Air 02/09/17 12:55 98 Room Air 02/09/17 11:56 82 20 129/62 98 Room Air 02/09/17 09:57 36.6 91 20 131/69 99 Room Air General Appearance: WD/WN, no apparent distress, + pertinent finding (alert cooperative 56 year old female, lying in bed, friend at bedside) Head: normocephalic, atraumatic Eyes: normal inspection, sclerae normal ENT: hearing grossly normal, pharynx normal Neck: supple, trachea midline Respiratory/Chest: lungs clear, normal breath sounds, no respiratory distress, no accessory muscle use Cardiovascular: regular rate, rhythm, no murmur Abdomen/GI: normal bowel sounds, non tender, soft Back: + pertinent finding (mild right flank tenderness around nephrostomy tube area) Extremities/Musculoskelatal: no calf tenderness, no pedal edema Neurologic/Psych: alert, normal mood/affect, oriented x 3 Skin: normal color, warm/dry Diagnostics Laboratory Results Results Past 24 Hours Test 02/09/17 10:44 02/09/17 11:15 02/09/17 13:34 Range/Units White Blood Count 3.42 4.8-10.8 K/uL Red Blood Count 2.08 4.2-5.4 M/uL Hemoglobin 6.3 12.0-16.0 g/dL Hematocrit 19.1 37-47 % Mean Corpuscular Volume 91.8 80-100 fL Mean Corpuscular Hemoglobin 30.3 25-34 pg Mean Corpuscular Hemoglobin Concent 33.0 32-36 g/dl Platelet Count 69 130-400 K/uL Mean Platelet Volume 8.5 7.4-10.4 fL Neutrophils (%) (Auto) 72.5 % Lymphocytes (%) (Auto) 19.3 % Monocytes (%) (Auto) 7.3 % Eosinophils (%) (Auto) 0.6 % Basophils (%) (Auto) 0.0 % Neutrophils # (Auto) 2.48 1.4-6.5 K/uL Lymphocytes # (Auto) 0.66 1.2-3.4 K/uL Monocytes # (Auto) 0.25 0.11-0.59 K/uL Eosinophils # (Auto) 0.02 0-0.5 K/uL Basophils # (Auto) 0.00 0-0.2 K/uL RDW Standard Deviation 60.5 36.4-46.3 fL RDW Coefficient of Variation 17.9 11.5-14.5 % Immature Granulocyte % (Auto) 0.3 % Immature Granulocyte # (Auto) 0.01 0.00-0.02 K/uL Platelet Estimate DECREASED Red Blood Cell Morphology Unremarkable Sodium Level 136 136-145 mmol/L Potassium Level 4.3 3.5-5.1 mmol/L Chloride Level 100 98-107 mmol/L Carbon Dioxide Level 30 21-32 mmol/L Anion Gap 6.0 3-11 mmol/L Blood Urea Nitrogen 15 7-18 mg/dl Creatinine 0.66 0.60-1.20 mg/dl Estimated GFR () 113.7 Estimated GFR (Non- 98.1 BUN/Creatinine Ratio 23.4 10-20 Random Glucose 166 70-99 mg/dl Calcium Level 9.3 8.5-10.1 mg/dl Total Bilirubin 0.3 0.2-1 mg/dl Direct Bilirubin 0.1 0-0.2 mg/dl Aspartate Amino Transf (AST/SGOT) 20 15-37 U/L Alanine Aminotransferase (ALT/SGPT) 13 12-78 U/L Alkaline Phosphatase 121 45-117 U/L Total Protein 7.4 6.4-8.2 gm/dl Albumin 3.3 3.4-5.0 gm/dl Lipase 103 73-393 U/L Urine Color RED Urine Appearance TURBID CLEAR Urine pH 4.5-7.5 Urine Specific [place] 1.014 1.000-1.030 Urine Protein NEG Urine Glucose (UA) NEG Urine Ketones NEG Urine Occult Blood NEG Urine Nitrite NEG Urine Bilirubin NEG Urine Urobilinogen NEG Urine Leukocyte Esterase NEG Urine RBC >30 0-4 /hpf Urine WBC >30 0-5 /hpf Urine Epithelial Cells 0-5 0-5 /lpf Urine Bacteria 2+ NEG Microbiology Results 02/09/17 Blood Culture, Received Pending 02/09/17 Blood Culture, Received Pending 02/09/17 Urine Culture, Received Pending Diagnostic Radiology ABDOMEN AND PELVIS CT WITH IV CONTRAST CT DOSE: 686.10 mGy.cm HISTORY: Postoperative pain eval for hematoma, bleeding TECHNIQUE: Multiaxial CT images of the abdomen and pelvis were performed following the use of intravenous contrast. COMPARISON STUDY: None. FINDINGS: Minimal atelectasis right base. Slight biliary ductal prominence possibly on the basis of prior cholecystectomy. Spleen and pancreas appear unremarkable. Left kidney enhances uniformly. There is a right-sided nephrostomy catheter. Appears to be a right ureteral stent extending to the bladder. There is a heterogeneous masslike process lateral right pelvic sidewall region. This measures approximately 10 x 10 x 12 cm. This appears to displace the right ureter and associated stent medially. The mass is heterogeneous. It is potentially neoplastic versus hemorrhagic. Bowel pattern appears nonobstructive. There are findings of chronic colonic diverticulosis. There multiple injection granulomas along the anterior abdominal wall. The right kidney is somewhat atrophic. The right renal pelvis is moderately distended. IMPRESSION: 1. Large complex soft tissue mass right lateral pelvic sidewall region measuring 10 x 10 x 12 cm. 2. This potentially represents hematoma, neoplastic mass, versus partially hemorrhagic neoplastic mass. 3. This mass displaces the right ureter in the right ureteral stent medially. 4. Moderate atrophy right kidney with distention of the right renal pelvis. 5. Operative changes consistent with a prior hysterectomy, right-sided nephrostomy, as well as right ureteral stent placement Impression Assessment and Plan COMPLICATED UTI In setting of right nephrostomy tube- changed 02/07/17 at [facility] [place] Urine culture from 02/07/17 grew 100 TO 999 colonies/mL non lactose fermenting gram negative rods Failed outpatient treatment with Keflex Presents with R flank pain, hematuria UA positive for >30 WBC, 2+ bacteria Afebrile, +leukopenia (WBC 3.4K), HR and BP stable- no sepsis CT a/p- 1. Large complex soft tissue mass right lateral pelvic sidewall region measuring 10 x 10 x 12 cm. 2. This potentially represents hematoma, neoplastic mass, versus partially hemorrhagic neoplastic mass. 3. This mass displaces the right ureter in the right ureteral stent medially. 4. Moderate atrophy right kidney with distention of the right renal pelvis. 5. Operative changes consistent with a prior hysterectomy, right-sided nephrostomy, as well as right ureteral stent placement Treated with cefepime in ER- will continue F/u repeat urine culture and blood cultures Pain control with PRN morphine ACUTE ON CHRONIC ANEMIA Hg is 6.3- recent baseline in mid 8's Transfuse 2 units pRBC Recheck H/H 2 hours post-transfusion PANCYTOPENIA Hg 6.3; WBC 3.4K; platelets 69 Likely from chemotherapy Has hematuria Monitor CBC RECURRENT ENDOMETRIAL CANCER S/p JESÚS BSO On chemo with paclitaxel and carboplatin- last treatment 3 weeks ago, received prophylactic Neulasta Follows with Dr. Johan Dickerson Consult hem/onc- Dr. Dickerson contacted by ER provider CHRONIC PAIN Has chronic pain right leg, right pelvic region Will continue MS contin 15 mg BID, replace PRN Oxy IR with 2 mg morphine IV PRN HYPERTENSION BP is stable Continue losartan DM TYPE 2 Hold metformin during hospitalization Insulin sliding scale coverage ANXIETY/ DEPRESSION Continue Zoloft and Ativan CHRONIC CONSTIPATION Continue Colace and Miralax HISTORY OF DVT/ VTE PROPHYLAXIS Hold Lovenox due to anemia, thrombocytopenia, hematuria SCD knee FULL CODE per my discussion with the patient DISPOSITION Admit to medical floor Follows with Dr. Gaspar for primary care Patient seen in collaboration with Dr. Maza. Please see his addendum. Attending Addendum: The patient was seen and examined Very anxious and in pain Admitted with pain and fever ,s/p right nephrostomy tube replacement in [place] about 3 days ago Has UTI now O/E Afebrile and hemodynamically stable Chest-clear to auscultate bilaterally Abdomen-soft,mildly tender More tenderness RLQ,Nephrostomy tube site intact Right renal angle is tender Labs and Imaging studies were reviewed Needs to follow up C/S result from [place] to adjust antibiotic SOON THE HB IS ACCEPTABLE START LOVENOX SHE WAS GETTING BEFORE - DISCUSSED WITH DR DICKERSON Agree with the assessment and plan. DR Magi Maza Advanced Directives Existing Living Will: No Existing Power of Supervisor [employer]: No VTE Prophylaxis VTE Risk Assessment Done? Y/N: Yes Risk Level: High
[2017-02-09] MEDS: HYDROmorphone INJ 1 MG/ML SYR IV PRN ×3 (17:41→23:11)
[2017-02-09] MEDS: INSULIN ASPART 100 UNITS/ML 3 ML PEN SC SCH ×2 (18:31→20:54)
[2017-02-09] MEDS: LORAZEPAM 0.5 MG TAB PO SCH ×2 (18:38→23:20)
[2017-02-09] MEDS ORDERED: NURSING VERBAL MED ORDER ONE (18:45)
--- NOTE | 2017-02-09 20:49 | Hematology/Oncology Prog Note ---
Hematology/Onc Progress Note Date of Service Feb 09, 2017. Subjective 56-year-old female, a case of recurrent endometrial cancer, she has recurrent disease involving the abdomen with significantly enlarged right-sided pelvic mass which is causing obstructive symptoms involving the right kidney and right ureter, S/P percutaneous nephrostomy drainage. Current treatment: -Paclitaxel at 175 mg/m2 and carboplatin at AUC of 5, started on 10/20/2016. - Prophyalctic Neulasta. - S/P right percutaneous nephostomy for hydronephrosis.(10/09/2016) - Lovenox for right lower extremity DVT. - WBC 6000, H&H of 8.6/26, Platelet count of 142,000, BUN/Creat: 22/0.7, AST 55 , ALT 16, alkaline phosphatase 408, Total bilirubin: 0.5, calcium 10.6 (2016). Last cycle of chemotherapy with paclitaxel and carboplatin received on 2016. She received prophylactic Neulasta on 01/20/2017. Underwent right nephroureteral stent exchange on 02/07/2017 at [facility], she had catheter exit site pain, tenderness and discharge, urine culture from the nephrostomy drainage site grew non lactose fermenting gram negative rods. She was started on oral antibiotic in the form Keflex as an outpatient. Pain management: -outpatient regimen consist of MS Contin 15 mg every 12 hourly and oxycodone 5 mg for the breakthrough pain (1 tablet every 6 hourly as needed). Has underlying anxiety and insomnia, she takes Ativan and Ambien for the symptomatic treatment. She is on Lovenox at 90 mg every 12 hourly for right lower extremity DVT, Anti- Xa level was around 0.92 as of 01/19/2017. Last imaging studies done after 3 cycles of chemotherapy with paclitaxel carboplatin done on 12/26/2016 showed stable subcarinal lymph node, no lung nodules, large necrotic right lower quadrant mass extending into the right hemipelvis encasing the right psoas muscle, a right internal and external iliac blood vessels which is slightly decreased when compared to previous imaging studies (now measuring 11.7 x 9 cm, it was 11.9 x 10.9 cm earlier). Right nephrostomy drainage tube and right nephroureteral stent noted. Today she is admitted at [facility] for increasing right flank pain, hematuria for the last one to 2 days, feeling weak and tired, had some low-grade fever earlier which has improved, she is on oral antibiotic in the form of Keflex. Earlier in the day I spoke with the ER physician, had CT scan of the abdomen and pelvis today which showed complex soft tissue mass involving the right lower quadrant and right pelvis measuring 10 x 10 x 12 cm which appears to be in the same size. I saw her at bedside, her daughter was also at bedside, she says that she is feeling better, no fever at present, right flank pain pain is better, no hematuria at present, no bleeding from any sites, she also had right lower extremity lymphedema, recently she was seen by lymphedema specialist, it is gradually getting better and she is happy about that. On exam: - Alert and oriented x3, well built woman, not in any distress. - HEENT: no icterus, pallor present, Throat: Normal. - Neck: No palpable cervical lymphadenopathy. - Chest: clear to auscultation. - Abdomen: soft, nontender, no hepatomegaly, no splenomegaly. Percutaneous right flank nephrostomy drainage to presently - No focal neuro deficit. - Extremities: no finger clubbing, right leg edema present. Blood workup done on 02/09/2017: -WBC 3400, H&H of 6.3/19, Platelet count of 69,000, ANC 2400 -BUN/Creat: 15/0.6, AST 20, ALT 13, alkaline phosphate is 121, Total bilirubin : 0.3. Calcium 9.3. ASSESSMENT AND PLAN: 56-year-old female, a case of endometrial carcinoma, endometrioid type, S/P JESÚS/BSO in 2008, T1b primary tumor, all 4 lymph nodes were negative, peritoneal washing showed some rare group of atypical epithelial cells, she received Megace for about 1 year, imaging studies done in 2011 and 2012 showed no evidence of recurrent disease, earlier this year she started having increasing back pain, right lower extremity edema, found to have right lower extremity DVT, imaging study showed large retroperitoneal soft tissue mass measuring about 12 cm causing right hydronephrosis and atrophic right kidney, multiple other enlarged lymph nodes noted in the abdomen measuring 2 to 3 cm, sub carinal lymph node measuring 3 cm noted, FNA from the retroperitoneal soft tissue mass confirmed recurrence of endometrial cancer. S/P percutaneous nephrostomy drainage and nephroureteric stent placement. Started her on systemic chemotherapy with paclitaxel and carboplatin in October. Imaging studies done after 3 cycles of chemotherapy showed minimal response, overall stable mass noted. She is receiving additional chemotherapy the same combination, recently she received 5th cycle of chemotherapy with paclitaxel and carboplatin on 01/19/2017 , she also received prophylactic Neulasta 24 after the completion of the chemotherapy to prevent febrile neutropenia. Now she is admitted Hospital for increasing right flank pain which occurred about 2 days after changing the right nephrostomy drainage tube, also had hematuria, she is on Lovenox for right lower extremity DVT. She had a another CT scan done today, overall stable right lower quadrant mass measuring around 12 cm noted. Blood workup shows pancytopenia, her hemoglobin level was around 8 g/dL when she received her chemotherapy and now with additional chemotherapy as well as ongoing hematuria, hemoglobin level dropped down to around 6.3 g/dL, she will receive blood transfusion support, platelet count is on lower side but likely to improve in the next few days. She does not require any growth factor support at this time. Regarding pain medication, we can continue with the long-acting MS Contin 15 mg every 12 hourly, we can try hydromorphone for breakthrough pain and see how she does. She is somewhat reluctant to change pain medication at this time. We may have to increase long-acting MS Contin to 30 mg every 12 hourly for better pain management. Agree about broad-spectrum antibiotic coverage for UTI. Will follow up Thanks for the consultation. Dr. Johan Dickerson Hem/Onc (This note was completed using the dictation program Fluency Direct. As such, there may be misspellings, word substitutions, or other variations that should not change the essence of the clinical content of this encounter note. If there is need for further clarification, please direct questions to the provider listed above.) Vital Signs Vital Signs Past 12 Hours Date Time Temp Pulse Resp B/P (MAP) Pulse Ox O2 Delivery O2 Flow Rate FiO2 02/09/17 20:05 37.1 83 20 132/75 95 02/09/17 19:36 36.9 81 18 146/65 94 02/09/17 18:30 37.5 85 16 123/64 (83) 98 Room Air 02/09/17 17:25 37.0 88 18 153/84 100 02/09/17 16:45 37.0 84 18 131/78 (95) 98 Room Air 02/09/17 16:23 36.7 81 18 124/74 98 02/09/17 15:15 36.8 78 16 133/67 (89) 100 Room Air 02/09/17 14:48 89 16 122/64 97 02/09/17 13:43 80 20 123/56 99 Room Air 02/09/17 12:55 98 Room Air 02/09/17 11:56 82 20 129/62 98 Room Air 02/09/17 09:57 36.6 91 20 131/69 99 Room Air
[2017-02-09] MEDS: DOCUSATE SODIUM 100 MG CAP PO SCH (20:53)
[2017-02-09] MEDS: MoRPHine SULFATE CR 15 MG TAB (MS CONTIN) PO SCH (20:54)
[2017-02-10] VITALS (7 sets, daily range): BP systolic 113–133; BP diastolic 58–76; PULSE 73–86; TEMP 36.7–37; O2SAT 96–99; BMI 29.6
[2017-02-10 00:49] LABS: HEMATOCRIT 22.5 % (37-47)
[2017-02-10] MEDS: HYDROmorphone INJ 1 MG/ML SYR IV PRN ×6 (02:27→23:41)
[2017-02-10] MEDS: CEFEPIME IV 2,000 MG in DEXTROSE 5% 100ML 100 ML IV SCH ×2 (02:27→13:33)
[2017-02-10] MEDS: LORAZEPAM 0.5 MG TAB PO SCH ×4 (05:53→23:41)
[2017-02-10 06:06] LABS: MEAN CELL VOLUME 90.9 fL (80-100); MEAN CORPUSCULAR HEMOGLOBIN 30.2 pg (25-34); MEAN CORPUSCULAR HGB CONC 33.2 g/dl (32-36); RED BLOOD COUNT 2.42 M/uL (4.2-5.4); WHITE BLOOD COUNT 3.74 K/uL (4.8-10.8)
[2017-02-10 06:07] LABS: MEAN PLATELET VOLUME 8.2 fL (7.4-10.4); PLATELET COUNT 70 K/uL (130-400)
[2017-02-10 06:37] LABS: BUN/CREATININE RATIO 19.9 (10-20); CREATININE 0.72 mg/dl (0.60-1.20); POTASSIUM 4.5 mmol/L (3.5-5.1)
[2017-02-10 06:42] LABS: COMPLETE YES; EOS % 0.5 %; LYMPH % 32.4 %; LYMPH ABS # 1.21 K/uL (1.2-3.4); MONO % 10.2 %; NEUT % 56.9 %
[2017-02-10] MEDS: POLYETHYLENE (MIRALAX) 17 GM PACK PO SCH (08:37)
[2017-02-10] MEDS: MoRPHine SULFATE CR 15 MG TAB (MS CONTIN) PO SCH ×2 (08:37→21:02)
[2017-02-10] MEDS: DOCUSATE SODIUM 100 MG CAP PO SCH ×2 (08:37→19:51)
[2017-02-10] MEDS: SERTRALINE HCL 50 MG TAB PO SCH (08:38)
[2017-02-10] MEDS: LOSARTAN POTASSIUM 50 MG TAB PO SCH (08:39)
[2017-02-10] MEDS: INSULIN ASPART 100 UNITS/ML 3 ML PEN SC SCH ×4 (08:43→21:00)
[2017-02-10] MEDS ORDERED: NURSING VERBAL MED ORDER ONE (09:00)
[2017-02-10] MEDS ORDERED: HYDROmorphone INJ 1 MG/ML SYR IV STA (09:00)
[2017-02-10] MEDS ORDERED: MoRPHine SULFATE CR 15 MG TAB (MS CONTIN) PO ONE (12:00)
--- NOTE | 2017-02-10 12:32 | Progress Note ---
Internal Med Progress Note Date of Service: Feb 10, 2017. Provider Documentation: SUBJECTIVE: Seen and examined at bedside. States having lot of right sided flank pain. Also has hematuria. Denies SOB, chest pain, nausea, vomiting. Family at bedside. Will transfuse one unit PRBC today OBJECTIVE: Vital Signs-as noted below Physical Exam: General Appearance:Moderately built and nourished, mild distress Head: normocephalic, Atraumatic Eyes: normal inspection, EOMI, PERRL Neck: supple, Trachea midline Respiratory/Chest: Normal breath sounds, CTA Cardiovascular: S1, S2, No murmur Abdomen/GI:Soft, Bowel sounds present, + R flank tender Extremities/Musculoskelatal:normal inspection, no Neurologic/Psych:AAOX3, grossly no focal neurological deficits Skin: normal color, warm Lab data as noted below. ASSESSMENT & PLAN: COMPLICATED UTI In setting of R nephrostomy tube- [place] 02[place]07[place] [facility] [place] outpatient treatment with Keflex Urine culture from [place]: Still pending Repeat culture 02/09:pending Presented with R flank pain, hematuria CT ABD as below Continue cefepime for now Pain control ACUTE ON CHRONIC ANEMIA Hb:6.3: baseline in mid 8's S/P 2 units PRBCs Hb:7.3 today Will give 1 more units of PRBCs: discussed with today Monitor H&H PANCYTOPENIA Secondary to chemotherapy Has hematuria Monitor CBC RECURRENT ENDOMETRIAL CANCER S/p JESÚS BSO On chemo with paclitaxel and carboplatin- last treatment 3 weeks ago, received prophylactic Neulasta Follows with Dr. Johan Dickerson Appreciate hem/onc input CHRONIC PAIN Has chronic pain right leg, right pelvic region cont inue increased MS contin 30 mg BID, PRN Oxy IR for break through and Dilaudid for extreme pain only HYPERTENSION stable Continue losartan DM II Hold metformin during hospitalization Insulin sliding scale coverage ANXIETY/ DEPRESSION Continue Zoloft and Ativan CHRONIC CONSTIPATION Continue Colace and Miralax H/O OF DVT/ VTE PROPHYLAXIS Hold Lovenox due to anemia, thrombocytopenia, hematuria for now SCD knee Code Status: FULL CODE DISPOSITION Follows with Dr. Gaspar for primary care Vital Signs: Date Time Temp Pulse Resp B/P (MAP) Pulse Ox O2 Delivery O2 Flow Rate FiO2 02/10/17 11:41 36.7 76 16 130/76 (94) 99 Room Air 02/10/17 07:54 Room Air 02/10/17 07:35 36.8 86 18 119/64 (82) 96 Room Air 02/09/17 23:59 Room Air 02/09/17 23:21 36.9 79 20 131/72 (91) 98 Room Air 02/09/17 22:05 37.1 93 18 158/76 96 02/09/17 21:08 37.0 79 20 132/72 97 02/09/17 20:35 37.2 78 20 120/74 96 02/09/17 20:05 37.1 83 20 132/75 95 02/09/17 20:05 37.1 95 20 132/75 02/09/17 20:00 Room Air 02/09/17 19:50 36.9 96 20 153/82 02/09/17 19:36 36.9 81 18 146/65 94 02/09/17 18:30 37.5 85 16 123/64 (83) 98 Room Air 02/09/17 17:25 37.0 88 18 153/84 100 02/09/17 16:45 37.0 84 18 131/78 (95) 98 Room Air 02/09/17 16:23 36.7 81 18 124/74 98 02/09/17 16:00 Room Air 02/09/17 15:15 36.8 78 16 133/67 (89) 100 Room Air 02/09/17 14:48 89 16 122/64 97 02/09/17 13:43 80 20 123/56 99 Room Air 02/09/17 12:55 98 Room Air Lab Results: Results Past 24 Hours Test 02/09/17 16:47 02/09/17 20:25 02/10/17 00:40 02/10/17 05:23 Range/Units Bedside Glucose 131 122 70-90 mg/dl Hemoglobin 7.5 7.3 12.0-16.0 g/dL Hematocrit 22.5 22.0 37-47 % White Blood Count 3.74 4.8-10.8 K/uL Red Blood Count 2.42 4.2-5.4 M/uL Mean Corpuscular Volume 90.9 80-100 fL Mean Corpuscular Hemoglobin 30.2 25-34 pg Mean Corpuscular Hemoglobin Concent 33.2 32-36 g/dl Platelet Count 70 130-400 K/uL Mean Platelet Volume 8.2 7.4-10.4 fL Neutrophils (%) (Auto) 56.9 % Lymphocytes (%) (Auto) 32.4 % Monocytes (%) (Auto) 10.2 % Eosinophils (%) (Auto) 0.5 % Basophils (%) (Auto) 0.0 % Neutrophils # (Auto) 2.13 1.4-6.5 K/uL Lymphocytes # (Auto) 1.21 1.2-3.4 K/uL Monocytes # (Auto) 0.38 0.11-0.59 K/uL Eosinophils # (Auto) 0.02 0-0.5 K/uL Basophils # (Auto) 0.00 0-0.2 K/uL RDW Standard Deviation 56.7 36.4-46.3 fL RDW Coefficient of Variation 17.2 11.5-14.5 % Immature Granulocyte % (Auto) 0.0 % Immature Granulocyte # (Auto) 0.00 0.00-0.02 K/uL Red Blood Cell Morphology Unremarkable Sodium Level 139 136-145 mmol/L Potassium Level 4.5 3.5-5.1 mmol/L Chloride Level 103 98-107 mmol/L Carbon Dioxide Level 29 21-32 mmol/L Anion Gap 7.0 3-11 mmol/L Blood Urea Nitrogen 14 7-18 mg/dl Creatinine 0.72 0.60-1.20 mg/dl Est Creatinine Clear Calc Drug Dose 89.4 ml/min Estimated GFR () 107.0 Estimated GFR (Non- 92.3 BUN/Creatinine Ratio 19.9 10-20 Random Glucose 114 70-99 mg/dl Calcium Level 9.0 8.5-10.1 mg/dl Test 02/10/17 08:05 02/10/17 11:21 Range/Units Bedside Glucose 143 131 70-90 mg/dl Microbiology Results 02/09/17 Blood Culture, Received Pending 02/09/17 Blood Culture, Received Pending
[2017-02-10] MEDS: OXYCODONE HCL IR 5 MG TAB (IMMEDIATE RELEASE) PO PRN ×2 (12:35→21:03)
[2017-02-10 17:46] LABS: HEMATOCRIT 26.6 % (37-47)
[2017-02-11 00:04] VITALS: BP 147/76; PULSE 85; TEMP 37; O2SAT 97
[2017-02-11] MEDS: CEFEPIME IV 2,000 MG in DEXTROSE 5% 100ML 100 ML IV SCH ×2 (02:08→14:27)
[2017-02-11] MEDS: LORAZEPAM 0.5 MG TAB PO SCH ×4 (05:56→23:42)
[2017-02-11] MEDS: OXYCODONE HCL IR 5 MG TAB (IMMEDIATE RELEASE) PO PRN ×3 (05:59→18:19)
[2017-02-11 06:03] LABS: HEMATOCRIT 25.6 % (37-47); MEAN CELL VOLUME 91.1 fL (80-100); MEAN CORPUSCULAR HEMOGLOBIN 30.2 pg (25-34); MEAN CORPUSCULAR HGB CONC 33.2 g/dl (32-36); RED BLOOD COUNT 2.81 M/uL (4.2-5.4); WHITE BLOOD COUNT 4.13 K/uL (4.8-10.8)
[2017-02-11 06:04] VITALS: BMI 29.1
[2017-02-11 06:11] LABS: MEAN PLATELET VOLUME 8.9 fL (7.4-10.4); PLATELET COUNT 92 K/uL (130-400)
[2017-02-11 06:29] LABS: COMPLETE YES; EOS % 0.5 %; IG% 0.2 %; LYMPH % 32.7 %; LYMPH ABS # 1.35 K/uL (1.2-3.4); MONO % 10.2 %; NEUT % 56.4 %
[2017-02-11 06:33] LABS: BUN/CREATININE RATIO 22.8 (10-20); CALCIUM 9.2 mg/dl (8.5-10.1); CREATININE 0.63 mg/dl (0.60-1.20); POTASSIUM 4.4 mmol/L (3.5-5.1)
[2017-02-11 07:06] VITALS: BP 123/67; PULSE 78; TEMP 36.9; O2SAT 97
[2017-02-11] MEDS: LOSARTAN POTASSIUM 50 MG TAB PO SCH (08:12)
[2017-02-11] MEDS: SERTRALINE HCL 50 MG TAB PO SCH (08:12)
[2017-02-11] MEDS: DOCUSATE SODIUM 100 MG CAP PO SCH ×2 (08:12→20:30)
[2017-02-11] MEDS: POLYETHYLENE (MIRALAX) 17 GM PACK PO SCH (08:13)
[2017-02-11] MEDS: MoRPHine SULFATE CR 15 MG TAB (MS CONTIN) PO SCH ×2 (08:13→20:30)
[2017-02-11] MEDS: INSULIN ASPART 100 UNITS/ML 3 ML PEN SC SCH ×4 (09:09→20:32)
[2017-02-11] MEDS: HYDROmorphone INJ 1 MG/ML SYR IV PRN ×3 (12:02→21:28)
--- NOTE | 2017-02-11 13:51 | Progress Note ---
Internal Med Progress Note Date of Service: Feb 11, 2017. Provider Documentation: SUBJECTIVE: Seen and examined at bedside. States her pain is better today. Still has hematuria but improving. Denies SOB, chest pain, nausea, vomiting. No new complaints. OBJECTIVE: Vital Signs-as noted below Physical Exam: General Appearance:Moderately built and nourished, mild distress Head: normocephalic, Atraumatic Eyes: normal inspection, EOMI, PERRL Neck: supple, Trachea midline Respiratory/Chest: Normal breath sounds, CTA Cardiovascular: S1, S2, No murmur Abdomen/GI:Soft, Bowel sounds present, + R flank tender Extremities/Musculoskelatal:normal inspection, no Neurologic/Psych:AAOX3, grossly no focal neurological deficits Skin: normal color, warm Lab data as noted below. ASSESSMENT & PLAN: COMPLICATED UTI In setting of R nephrostomy tube- changed 02/07/17 at [facility] Failed outpatient treatment with Keflex Urine culture from [place]: Leclercia Adecarboxylata: sensitive to Ciprofloxacin Repeat Blood/Urine culture 02/09: No growth Presented with R flank pain, hematuria CT ABD as below Continue cefepime for now Pain control ACUTE ON CHRONIC ANEMIA Hb:6.3: baseline in mid 8's Hb:8.5 today S/P 3 units PRBCs Discussed with 02/11/17 Monitor H&H PANCYTOPENIA Secondary to chemotherapy Has hematuria Monitor CBC RECURRENT ENDOMETRIAL CANCER S/p JESÚS BSO On chemo with paclitaxel and carboplatin- last treatment 3 weeks ago, received prophylactic Neulasta Follows with Dr. Johan Dickerson Appreciate hem/onc input CHRONIC PAIN Has chronic pain right leg, right pelvic region cont inue increased MS contin 30 mg BID, PRN Oxy IR for break through and Dilaudid for extreme pain only HYPERTENSION stable Continue losartan DM II Hold metformin during hospitalization Insulin sliding scale coverage ANXIETY/ DEPRESSION Continue Zoloft and Ativan CHRONIC CONSTIPATION Continue Colace and Miralax H/O OF DVT/ VTE PROPHYLAXIS Hold Lovenox due to anemia, thrombocytopenia, hematuria for now SCD knee Need to restart lovenox when able Code Status: FULL CODE DISPOSITION Follows with Dr. Gaspar for primary care Need to restart Lovenox when Hb stable Vital Signs: Date Time Temp Pulse Resp B/P (MAP) Pulse Ox O2 Delivery O2 Flow Rate FiO2 02/11/17 08:26 Room Air 02/11/17 07:06 36.9 78 20 123/67 (85) 97 Room Air 02/11/17 00:04 37.0 85 20 147/76 (99) 97 Room Air 02/11/17 00:00 Room Air 02/10/17 20:00 Room Air 02/10/17 16:35 36.7 82 20 114/67 98 02/10/17 15:50 Room Air 02/10/17 15:40 36.8 78 18 133/58 02/10/17 15:10 37.0 73 16 113/68 02/10/17 14:55 37.0 79 18 119/62 96 02/10/17 14:37 37.0 80 20 119/62 Lab Results: Results Past 24 Hours Test 02/10/17 16:42 02/10/17 17:40 02/10/17 20:18 02/11/17 05:04 Range/Units Bedside Glucose 148 152 70-90 mg/dl Hemoglobin 8.9 8.5 12.0-16.0 g/dL Hematocrit 26.6 25.6 37-47 % White Blood Count 4.13 4.8-10.8 K/uL Red Blood Count 2.81 4.2-5.4 M/uL Mean Corpuscular Volume 91.1 80-100 fL Mean Corpuscular Hemoglobin 30.2 25-34 pg Mean Corpuscular Hemoglobin Concent 33.2 32-36 g/dl Platelet Count 92 130-400 K/uL Mean Platelet Volume 8.9 7.4-10.4 fL Neutrophils (%) (Auto) 56.4 % Lymphocytes (%) (Auto) 32.7 % Monocytes (%) (Auto) 10.2 % Eosinophils (%) (Auto) 0.5 % Basophils (%) (Auto) 0.0 % Neutrophils # (Auto) 2.33 1.4-6.5 K/uL Lymphocytes # (Auto) 1.35 1.2-3.4 K/uL Monocytes # (Auto) 0.42 0.11-0.59 K/uL Eosinophils # (Auto) 0.02 0-0.5 K/uL Basophils # (Auto) 0.00 0-0.2 K/uL RDW Standard Deviation 55.1 36.4-46.3 fL RDW Coefficient of Variation 16.7 11.5-14.5 % Immature Granulocyte % (Auto) 0.2 % Immature Granulocyte # (Auto) 0.01 0.00-0.02 K/uL Red Blood Cell Morphology Unremarkable Sodium Level 140 136-145 mmol/L Potassium Level 4.4 3.5-5.1 mmol/L Chloride Level 103 98-107 mmol/L Carbon Dioxide Level 28 21-32 mmol/L Anion Gap 9.0 3-11 mmol/L Blood Urea Nitrogen 14 7-18 mg/dl Creatinine 0.63 0.60-1.20 mg/dl Est Creatinine Clear Calc Drug Dose 101.2 ml/min Estimated GFR () 114.6 Estimated GFR (Non- 98.9 BUN/Creatinine Ratio 22.8 10-20 Random Glucose 116 70-99 mg/dl Calcium Level 9.2 8.5-10.1 mg/dl Test 02/11/17 07:41 02/11/17 11:51 Range/Units Bedside Glucose 134 123 70-90 mg/dl
[2017-02-11 16:01] VITALS: BP 113/65; PULSE 74; TEMP 36.4; O2SAT 95
[2017-02-11 23:46] VITALS: BP 119/73; PULSE 72; TEMP 37; O2SAT 97
[2017-02-12] MEDS: OXYCODONE HCL IR 5 MG TAB (IMMEDIATE RELEASE) PO PRN ×3 (00:33→18:04)
[2017-02-12] MEDS: CEFEPIME IV 2,000 MG in DEXTROSE 5% 100ML 100 ML IV SCH ×2 (01:38→02:07)
[2017-02-12] MEDS: HYDROmorphone INJ 1 MG/ML SYR IV PRN ×6 (01:39→23:16)
[2017-02-12] MEDS ORDERED: HYDROmorphone INJ 1 MG/ML SYR IV STA (02:24)
[2017-02-12] MEDS: LORAZEPAM 0.5 MG TAB PO SCH ×4 (05:58→23:12)
[2017-02-12 06:12] LABS: BASO % 0.3 %; BASO ABS # 0.01 K/uL (0-0.2); EOS % 1.3 %; HEMATOCRIT 24.9 % (37-47); IG% 0.3 %; LYMPH % 38.4 %; LYMPH ABS # 1.53 K/uL (1.2-3.4); MEAN CELL VOLUME 90.5 fL (80-100); MEAN CORPUSCULAR HEMOGLOBIN 30.2 pg (25-34); MEAN CORPUSCULAR HGB CONC 33.3 g/dl (32-36); MEAN PLATELET VOLUME 8.4 fL (7.4-10.4); MONO % 8.3 %; NEUT % 51.4 %; PLATELET COUNT 102 K/uL (130-400); RED BLOOD COUNT 2.75 M/uL (4.2-5.4); WHITE BLOOD COUNT 3.98 K/uL (4.8-10.8)
[2017-02-12 06:25] VITALS: BMI 28.8
[2017-02-12 06:43] LABS: CREATININE 0.65 mg/dl (0.60-1.20)
[2017-02-12 06:57] LABS: COMPLETE YES
[2017-02-12 07:13] VITALS: BP 114/73; PULSE 74; TEMP 36.8; O2SAT 97
[2017-02-12 08:45] VITALS: O2SAT 97
[2017-02-12] MEDS: SERTRALINE HCL 50 MG TAB PO SCH (08:50)
[2017-02-12] MEDS: DOCUSATE SODIUM 100 MG CAP PO SCH ×2 (08:50→19:37)
[2017-02-12] MEDS: POLYETHYLENE (MIRALAX) 17 GM PACK PO SCH (08:50)
[2017-02-12] MEDS: LOSARTAN POTASSIUM 50 MG TAB PO SCH (08:50)
[2017-02-12] MEDS: INSULIN ASPART 100 UNITS/ML 3 ML PEN SC SCH ×4 (08:58→21:32)
[2017-02-12] MEDS: MoRPHine SULFATE CR 15 MG TAB (MS CONTIN) PO SCH ×2 (08:59→21:14)
--- NOTE | 2017-02-12 11:47 | Progress Note ---
Internal Med Progress Note Date of Service: Feb 12, 2017. Provider Documentation: SUBJECTIVE: Seen and examined at bedside. States her leg pain is better but requires IV meds to control it better. Has minimal hematuria today. Denies SOB, chest pain, nausea, vomiting. No new complaints. Family at bedside. Discussed with her oncologist today. OBJECTIVE: Vital Signs-as noted below Physical Exam: General Appearance:Moderately built and nourished, mild distress Head: normocephalic, Atraumatic Eyes: normal inspection, EOMI, PERRL Neck: supple, Trachea midline Respiratory/Chest: Normal breath sounds, CTA Cardiovascular: S1, S2, No murmur Abdomen/GI:Soft, Bowel sounds present, + R flank tender Extremities/Musculoskelatal:normal inspection, no Neurologic/Psych:AAOX3, grossly no focal neurological deficits Skin: normal color, warm Lab data as noted below. ASSESSMENT & PLAN: COMPLICATED UTI In setting of R nephrostomy tube- changed 02/07/17 at [facility] [place] Got outpatient treatment with Keflex for 1 day Urine culture from [place]: Leclercia Adecarboxylata: sensitive to Ciprofloxacin Repeat Blood/Urine culture 02/09: No growth Presented with flank pain radiating to leg, hematuria CT ABD as below S/P cefepime for 3 days >>>>. Switch to PO cipro today Will consult Pain management for better pain control ACUTE ON CHRONIC ANEMIA Hb:6.3: baseline in mid 8's Hb:8.3 today S/P 3 units PRBCs Discussed with 02/11/17 and 02/12 Monitor H&H PANCYTOPENIA Secondary to chemotherapy Has hematuria Monitor CBC RECURRENT ENDOMETRIAL CANCER S/p JESÚS BSO On chemo with paclitaxel and carboplatin- last treatment 3 weeks ago, received prophylactic Neulasta Follows with Dr. Johan Dickerson Appreciate hem/onc input CHRONIC PAIN Has chronic pain right leg, right pelvic region cont inue increased MS contin 30 mg BID, PRN Oxy IR for break through and Dilaudid for extreme pain only HYPERTENSION stable Continue losartan DM II Hold metformin during hospitalization Insulin sliding scale coverage ANXIETY/ DEPRESSION Continue Zoloft and Ativan CHRONIC CONSTIPATION Continue Colace and Miralax H/O OF DVT/ VTE PROPHYLAXIS Lovenox held due to anemia, thrombocytopenia, hematuria Hb stable Will restart lovenox today. (Was on Lovenox prior to hospitalization) Code Status: FULL CODE DISPOSITION Follows with Dr. Gaspar for primary care Plan to discharge when pain is better controlled and Hb stable on lovenox Vital Signs: Date Time Temp Pulse Resp B/P (MAP) Pulse Ox O2 Delivery O2 Flow Rate FiO2 02/12/17 08:45 97 Room Air 02/12/17 07:13 36.8 74 18 114/73 (87) 97 Room Air 02/12/17 00:00 Room Air 02/11/17 23:46 37.0 72 18 119/73 (88) 97 Room Air 02/11/17 18:28 Room Air 02/11/17 16:01 36.4 74 18 113/65 (81) 95 Room Air Lab Results: Results Past 24 Hours Test 02/11/17 16:31 02/11/17 20:13 02/12/17 05:37 02/12/17 07:45 Range/Units Bedside Glucose 120 121 120 70-90 mg/dl White Blood Count 3.98 4.8-10.8 K/uL Red Blood Count 2.75 4.2-5.4 M/uL Hemoglobin 8.3 12.0-16.0 g/dL Hematocrit 24.9 37-47 % Mean Corpuscular Volume 90.5 80-100 fL Mean Corpuscular Hemoglobin 30.2 25-34 pg Mean Corpuscular Hemoglobin Concent 33.3 32-36 g/dl Platelet Count 102 130-400 K/uL Mean Platelet Volume 8.4 7.4-10.4 fL Neutrophils (%) (Auto) 51.4 % Lymphocytes (%) (Auto) 38.4 % Monocytes (%) (Auto) 8.3 % Eosinophils (%) (Auto) 1.3 % Basophils (%) (Auto) 0.3 % Neutrophils # (Auto) 2.05 1.4-6.5 K/uL Lymphocytes # (Auto) 1.53 1.2-3.4 K/uL Monocytes # (Auto) 0.33 0.11-0.59 K/uL Eosinophils # (Auto) 0.05 0-0.5 K/uL Basophils # (Auto) 0.01 0-0.2 K/uL RDW Standard Deviation 54.4 36.4-46.3 fL RDW Coefficient of Variation 16.5 11.5-14.5 % Immature Granulocyte % (Auto) 0.3 % Immature Granulocyte # (Auto) 0.01 0.00-0.02 K/uL Red Blood Cell Morphology Unremarkable Creatinine 0.65 0.60-1.20 mg/dl Est Creatinine Clear Calc Drug Dose 97.6 ml/min Estimated GFR () 113.4 Estimated GFR (Non- 97.9 Test 02/12/17 11:44 Range/Units Bedside Glucose 175 70-90 mg/dl
[2017-02-12] MEDS ORDERED: ENOXAPARIN 1 MG/KG SQ SCH (12:30)
[2017-02-12 14:19] LABS: INR 1.1 (0.9-1.1); PARTIAL THROMBOPLASTIN RATIO 1.1; PROTHROMBIN TIME (PATIENT) 11.4 SECONDS (9.0-12.0)
--- NOTE | 2017-02-12 15:33 | Pain Management Consultation ---
Pain Management Consultation Date of Consultation Feb 12, 2017. Reason for Consultation Right lower extremity pain History I saw Ms. Ward today at [facility]. She is a 57-year-old female with a history of endometrial cancer with a right lower quadrant mass. She currently works with Dr. Dickerson in regards to chemotherapy. She states that she's had right lower extremity burning prickling shooting pain from her L1-3 dermatomes over the last few weeks. She reports that this these symptoms have been increasing in frequency and intensity. She reports a prior history of associated right hip intra-articular hip pain and is now status post right intra -articular hip injection 1 month ago with relief of her symptoms. She states that now her symptoms of burning neuropathic pain have continued despite administration of Zoloft at 50 mg by mouth daily. She has not had any other injections or other treatments for this pain aside from lymphedema treatments. She denies any motor weakness bowel or bladder incontinence footdrop or falls. She does note that the pain is intermittent and persistent rating between 5 and 9 out of 10 when pain is most severe. She states that nothing seems to make the pain better or worse and she's had limited benefit with MS Contin and oxycodone. She states that these medications have been beneficial in treating other areas of pain that she's had for instance in her abdomen that have been relatively ineffective in treating her right lower extremity neuropathic-type pain. 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 (12) UTI (urinary tract infection) (13) S/P section (14) S/P appendectomy (15) History of ureter stent (16) S/P cholecystectomy (17) H/O blepharoplasty (18) S/P JESÚS-BSO Family History Cancer Gallbladder disease Heart disease MOTHER Kidney stones Social / Work History Alcohol Use: none Drug Use: none Marital Status: Housing Status: lives with family (daughter) Occupation: employed Allergies Coded Allergies: No Known Allergies (Unverified , OTHER, 11/01/16) ' Medications Current Inpatient Medications Medications (Trade) Dose Ordered Sig/Alivia Route Start Time Stop Time Status Last Admin Dose Admin Ioversol (Optiray 320) 100 ml UD PRN IV 02/09/17 12:00 02/13/17 11:59 Acetaminophen (Tylenol Tab) 650 mg Q4H PRN PO 02/09/17 13:30 03/11/17 13:29 Ondansetron HCl (Zofran Inj) 4 mg Q6H PRN IV 02/09/17 13:30 03/11/17 13:29 Glucose (Glucose 40% Gel) 15-30 GRAMS 15 GRAMS... UD PRN PO 02/09/17 13:45 03/11/17 13:44 Glucose (Glucose Chew Tab) 4-8 Tablets 4 Tabl... UD PRN PO 02/09/17 13:45 03/11/17 13:44 Dextrose (Dextrose 50% 50ML Syringe) 25-50ML OF 50% DW IV FOR... UD PRN IV 02/09/17 13:45 03/11/17 13:44 Glucagon (Glucagon Inj) 1 mg UD PRN SQ 02/09/17 13:45 03/11/17 13:44 Lorazepam (Ativan Tab) 0.5 mg Q6 PO 02/09/17 18:00 03/11/17 17:59 02/12/17 12:58 0.5 MG Losartan Potassium (coZAAR TAB) 50 mg DAILY PO 02/10/17 08:00 03/12/17 08:59 02/12/17 08:50 50 MG Prochlorperazine Maleate (Compazine Tab) 10 mg Q6H PRN PO 02/09/17 13:45 03/11/17 13:44 Sertraline HCl (Zoloft Tab) 50 mg DAILY PO 02/10/17 08:00 03/12/17 08:59 02/12/17 08:50 50 MG Zolpidem Tartrate (Ambien Tab) 10 mg HS PRN PO 02/09/17 13:45 03/11/17 13:44 Polyethylene (Miralax Powder Packet) 17 gm DAILY PO 02/10/17 08:00 03/12/17 08:59 02/12/17 08:50 17 GM Insulin Aspart (novoLOG ASPART) SLIDING SCALE If C... ACHS SC 02/09/17 16:30 03/11/17 16:29 02/12/17 12:58 4 UNITS Docusate Sodium (coLACE CAP) 100 mg BID PO 02/09/17 20:00 03/11/17 19:59 02/12/17 08:50 100 MG Morphine Sulfate (Oramorph Sr Tab) 30 mg Q12 PO 02/10/17 21:00 02/23/17 20:59 02/12/17 08:59 30 MG Oxycodone HCl (Roxicodone Immediate Rel Tab) 5 mg Q6H PRN PO 02/10/17 12:15 02/24/17 12:14 02/12/17 08:58 5 MG Hydromorphone HCl (Dilaudid Inj) 1 mg Q4H PRN IV 02/11/17 19:30 02/23/17 17:29 02/12/17 10:52 1 MG Heparin Sodium (Porcine) (Heparin 100 Unit/ml 5ml Flush) 5 ml PRN PRN IV 02/12/17 02:45 03/14/17 02:44 02/12/17 10:53 5 ML Ciprofloxacin (Cipro Tab) 500 mg BID PO 02/12/17 20:00 02/22/17 19:59 Enoxaparin Sodium (Lovenox Inj) 80 mg Q12@0600,1800 SQ 02/12/17 16:00 03/14/17 15:59 Review of Systems 10 point review of systems was otherwise negative aside from HPI Physical Exam Height & Weight: Height 5 feet, 5.00 inches. Weight 78.400 (Kilograms) 172 (Pounds) Last Vital Signs Documentation Date Time Temp Pulse Resp B/P (MAP) Pulse Ox O2 Delivery O2 Flow Rate FiO2 02/12/17 08:45 97 Room Air 02/12/17 07:13 36.8 74 18 114/73 (87) Exam: Awake alert noted 3 appearing in no acute distress sitting in her bed calm and cooperative throughout examination. exam is performed in front of her close friend. Pupils equal round and reactive to light neck is supple CV regular rate and rhythm except lungs notable wheezes or alternates and skin warm and dry to touch Spine nontender Right lower extremity has 5 out of 5 strength equal throughout with slight diminished sensation over her L2 and L3 dermatomes. She has tenderness over her obturator region. Left lower extremity is 5 out of 5 strength without deficit negative straight leg raise bilaterally symmetrical ankle clonus gait was not observed Nontender over bilateral SI joints or greater trochanters Cranial nerves appear grossly intact Laboratory Laboratory Review: results personally reviewed by va Laboratory Results (Last CBC): 02/12/17 05:37 Red Blood Count 2.75 L, Mean Corpuscular Volume 90.5, Mean Corpuscular Hemoglobin 30.2, Mean Corpuscular Hemoglobin Concent 33.3, Mean Platelet Volume 8.4, Neutrophils (%) (Auto) 51.4, Lymphocytes (%) (Auto) 38.4, Monocytes (%) ( Auto) 8.3, Eosinophils (%) (Auto) 1.3, Basophils (%) (Auto) 0.3, Neutrophils # ( Auto) 2.05, Lymphocytes # (Auto) 1.53, Monocytes # (Auto) 0.33, Eosinophils # ( Auto) 0.05, Basophils # (Auto) 0.[address] Findings ABDOMEN AND PELVIS CT WITH IV CONTRAST CT DOSE: 686.10 mGy.cm HISTORY: Postoperative pain eval for hematoma, bleeding TECHNIQUE: Multiaxial CT images of the abdomen and pelvis were performed following the use of intravenous contrast. COMPARISON STUDY: None. FINDINGS: Minimal atelectasis right base. Slight biliary ductal prominence possibly on the basis of prior cholecystectomy. Spleen and pancreas appear unremarkable. Left kidney enhances uniformly. There is a right-sided nephrostomy catheter. Appears to be a right ureteral stent extending to the bladder. There is a heterogeneous masslike process lateral right pelvic sidewall region. This measures approximately 10 x 10 x 12 cm. This appears to displace the right ureter and associated stent medially. The mass is heterogeneous. It is potentially neoplastic versus hemorrhagic. Bowel pattern appears nonobstructive. There are findings of chronic colonic diverticulosis. There multiple injection granulomas along the anterior abdominal wall. The right kidney is somewhat atrophic. The right renal pelvis is moderately distended. IMPRESSION: 1. Large complex soft tissue mass right lateral pelvic sidewall region measuring 10 x 10 x 12 cm. 2. This potentially represents hematoma, neoplastic mass, versus partially hemorrhagic neoplastic mass. 3. This mass displaces the right ureter in the right ureteral stent medially. 4. Moderate atrophy right kidney with distention of the right renal pelvis. 5. Operative changes consistent with a prior hysterectomy, right-sided nephrostomy, as well as right ureteral stent placement Electronically signed by: Hermes Herzog M.D. 02/09/2017 12:37 PM Assessment 1. Neuropathic pain right lower extremity 2. Endometrial cancer with large right lower quadrant mass Recommendations 1. I do not see a role for interventional pain therapy at this time 2. We will initiate gabapentin at 300 mg by mouth twice a day titrating upward for maximal effect. The risks and benefits of this medication were discussed with the patient all questions were answered. 3. We'll convert her Zoloft to Cymbalta 30 mg by mouth every morning. 4. I recommend maintaining MS Contin 30 mg by mouth twice a day with breakthrough oxycodone. 5. Thank you for this consult. I provided the patient my office information should she wish to follow up with us with as an outpatient. [employer] Voice Recognition This chart was completed in part utilizing [employer] Voice Recognition Software. Random word insertions, pronoun errors, and incomplete sentences are an occasional consequence of this system due to software limitations and ambient noise. Any questions or concerns about the content, text or information contained within the body of this dictation should be directly addressed to the provider for clarification.
[2017-02-12 15:38] VITALS: BP 113/72; PULSE 78; TEMP 36.9; O2SAT 98
[2017-02-12 16:00] VITALS: O2SAT 98
[2017-02-12 16:11] VITALS: BMI 28.8
[2017-02-12] MEDS: ENOXAPARIN 80 MG/0.8 ML SYR SQ SCH (17:55)
[2017-02-12] MEDS: CIPROFLOXACIN 500 MG TAB PO SCH (19:37)
[2017-02-12] MEDS: GABAPENTIN 300 MG CAP PO SCH (19:45)
[2017-02-12 20:26] VITALS: BP 102/57; PULSE 74; TEMP 36.7; O2SAT 95
[2017-02-13] VITALS (9 sets, daily range): BP systolic 102–122; BP diastolic 63–73; PULSE 70–83; TEMP 36.7–37.1; O2SAT 93–99; BMI 28.7
[2017-02-13] MEDS: LORAZEPAM 0.5 MG TAB PO SCH ×4 (05:40→23:49)
[2017-02-13] MEDS: OXYCODONE HCL IR 5 MG TAB (IMMEDIATE RELEASE) PO PRN ×3 (05:41→21:36)
[2017-02-13] MEDS: ENOXAPARIN 80 MG/0.8 ML SYR SQ SCH ×2 (05:41→18:03)
[2017-02-13 05:48] LABS: EOS % 1.5 %; HEMATOCRIT 26.5 % (37-47); IG% 0.2 %; LYMPH % 32.7 %; LYMPH ABS # 1.35 K/uL (1.2-3.4); MEAN CELL VOLUME 90.1 fL (80-100); MEAN CORPUSCULAR HEMOGLOBIN 29.3 pg (25-34); MEAN CORPUSCULAR HGB CONC 32.5 g/dl (32-36); MEAN PLATELET VOLUME 8.4 fL (7.4-10.4); MONO % 9.7 %; NEUT % 55.9 %; PLATELET COUNT 118 K/uL (130-400); RED BLOOD COUNT 2.94 M/uL (4.2-5.4); WHITE BLOOD COUNT 4.13 K/uL (4.8-10.8)
[2017-02-13 06:22] LABS: ANISOCYTOSIS PRESENT; COMPLETE YES
[2017-02-13] MEDS: LOSARTAN POTASSIUM 50 MG TAB PO SCH (08:20)
[2017-02-13] MEDS: DULOXETINE (CYMBALTA) 30 MG CAP PO SCH (08:20)
[2017-02-13] MEDS: DOCUSATE SODIUM 100 MG CAP PO SCH ×2 (08:20→20:19)
[2017-02-13] MEDS: GABAPENTIN 300 MG CAP PO SCH ×2 (08:20→20:19)
[2017-02-13] MEDS: CIPROFLOXACIN 500 MG TAB PO SCH ×2 (08:21→20:19)
[2017-02-13] MEDS: POLYETHYLENE (MIRALAX) 17 GM PACK PO SCH (08:21)
[2017-02-13] MEDS: INSULIN ASPART 100 UNITS/ML 3 ML PEN SC SCH ×4 (08:23→20:20)
[2017-02-13] MEDS: MoRPHine SULFATE CR 15 MG TAB (MS CONTIN) PO SCH ×2 (08:28→20:19)
[2017-02-13] MEDS: HYDROmorphone INJ 1 MG/ML SYR IV PRN ×4 (08:29→20:47)
--- NOTE | 2017-02-13 09:13 | Progress Note ---
Internal Med Progress Note Date of Service: Feb 13, 2017. Provider Documentation: SUBJECTIVE: Seen and examined at bedside. States she doesn't feel her leg pain is controlled well yet. " In tears during encounter" Reports hematuria is improving. Hb:8.6 today. Denies SOB, chest pain, nausea, vomiting. No new complaints. OBJECTIVE: Vital Signs-as noted below Physical Exam: General Appearance:Moderately built and nourished, mild distress Head: normocephalic, Atraumatic Eyes: normal inspection, EOMI, PERRL Neck: supple, Trachea midline Respiratory/Chest: Normal breath sounds, CTA Cardiovascular: S1, S2, No murmur Abdomen/GI:Soft, Bowel sounds present, + R flank tender Extremities/Musculoskelatal:normal inspection, no Neurologic/Psych:AAOX3, grossly no focal neurological deficits Skin: normal color, warm Lab data as noted below. ASSESSMENT & PLAN: COMPLICATED UTI In setting of R nephrostomy tube- [place] [facility] [place] treatment with Keflex for 1 day Urine culture from [place]: Leclercia Adecarboxylata: sensitive to Ciprofloxacin Repeat Blood/Urine culture 02/09: No growth Presented with flank pain radiating to leg, hematuria CT ABD as below S/P cefepime for 3 days >>>>. PO Cipro Day 2 Appreciate Pain management input ACUTE ON CHRONIC ANEMIA Hb:6.3: baseline in mid 8's Hb:8.6 today S/P 3 units PRBCs Discussed with 02/11/17 and 02/12 Monitor H&H PANCYTOPENIA Secondary to chemotherapy Has hematuria Monitor CBC CHRONIC PAIN Has chronic pain right leg, right pelvic region Increased MS contin 30 mg BID, PRN Oxy IR for break through and Dilaudid for extreme pain only Neurontin 300mg TID and Zoloft replaced with Cymbalta. Pain management following RECURRENT ENDOMETRIAL CANCER S/p JESÚS BSO On chemo with paclitaxel and carboplatin- last treatment 3 weeks ago, received prophylactic Neulasta Follows with Dr. Johan Dickerson Appreciate hem/onc input HYPERTENSION stable Continue losartan DM II Hold metformin during hospitalization Insulin sliding scale coverage ANXIETY/ DEPRESSION Continue Zoloft and Ativan CHRONIC CONSTIPATION Continue Colace and Miralax H/O OF DVT/ VTE PROPHYLAXIS Lovenox initially held due to anemia, thrombocytopenia, hematuria Hb stable Restarted lovenox on 02/12/17. Hb stable. (Was on Lovenox prior to hospitalization) Code Status: FULL CODE DISPOSITION Follows with Dr. Gaspar for primary care Follows with for Oncology Likely discharge tomorrow if stable Vital Signs: Date Time Temp Pulse Resp B/P (MAP) Pulse Ox O2 Delivery O2 Flow Rate FiO2 02/13/17 08:05 37.0 73 16 113/72 (86) 94 Room Air 02/13/17 04:11 36.7 70 16 106/64 (78) 95 Room Air 02/13/17 00:25 Room Air 02/13/17 00:09 36.8 70 16 102/63 (76) 95 Room Air 02/12/17 20:26 36.7 74 18 102/57 (72) 95 Room Air 02/12/17 20:25 Room Air 02/12/17 16:00 98 Room Air 02/12/17 15:38 36.9 78 16 113/72 (86) 98 Room Air Lab Results: Results Past 24 Hours Test 02/12/17 11:44 02/12/17 13:53 02/12/17 16:54 02/12/17 19:41 Range/Units Bedside Glucose 175 105 234 70-90 mg/dl Prothrombin Time 11.4 9.0-12.0 SECONDS Prothromb Time International Ratio 1.1 0.9-1.1 Activated Partial Thromboplast Time 28.5 21.0-31.0 SECONDS Partial Thromboplastin Ratio 1.1 Test 02/13/17 05:25 02/13/17 07:44 Range/Units White Blood Count 4.13 4.8-10.8 K/uL Red Blood Count 2.94 4.2-5.4 M/uL Hemoglobin 8.6 12.0-16.0 g/dL Hematocrit 26.5 37-47 % Mean Corpuscular Volume 90.1 80-100 fL Mean Corpuscular Hemoglobin 29.3 25-34 pg Mean Corpuscular Hemoglobin Concent 32.5 32-36 g/dl Platelet Count 118 130-400 K/uL Mean Platelet Volume 8.4 7.4-10.4 fL Neutrophils (%) (Auto) 55.9 % Lymphocytes (%) (Auto) 32.7 % Monocytes (%) (Auto) 9.7 % Eosinophils (%) (Auto) 1.5 % Basophils (%) (Auto) 0.0 % Neutrophils # (Auto) 2.31 1.4-6.5 K/uL Lymphocytes # (Auto) 1.35 1.2-3.4 K/uL Monocytes # (Auto) 0.40 0.11-0.59 K/uL Eosinophils # (Auto) 0.06 0-0.5 K/uL Basophils # (Auto) 0.00 0-0.2 K/uL RDW Standard Deviation 53.6 36.4-46.3 fL RDW Coefficient of Variation 16.3 11.5-14.5 % Immature Granulocyte % (Auto) 0.2 % Immature Granulocyte # (Auto) 0.01 0.00-0.02 K/uL Anisocytosis PRESENT Bedside Glucose 122 70-90 mg/dl
--- NOTE | 2017-02-13 22:51 | Hematology/Oncology Prog Note ---
Hematology/Onc Progress Note Date of Service Feb 13, 2017. Subjective I saw her bedside at about 6:00 p.m., her daughter was also at bedside, earlier she was seen by pain specialist Dr. Paulson, now started her on Neurontin, also started her on Cymbalta, she says that her lower back pain has improved to some extent but she says that she is much more comfortable with the current pain management and also understands that Neurontin will take few weeks to kick in the effect, hematuria has significantly improved, no new nephrostomy tube problem, no bleeding from any sites, no fever, hemodynamically she has remained stable, no new increasing leg edema, no nausea or vomiting, appetite has improved. I reviewed her blood workup done today, hemoglobin level has remained stable around 8.6 g/dL, so far she received 3 units of PRBC (2 units on 02/09/2017 and 1 unit on 02/10/2017). Now restarted on Lovenox for right lower extremity DVT. Platelet count has improved to around 118,000. Normal and stable kidney function test noted. Presently she is on oral antibiotic in the form ciprofloxacin. She is likely to go home by tomorrow, she also has an appointment with me in the office tomorrow, I told her there is no real need for office visit tomorrow. She is scheduled for next cycle of chemotherapy with paclitaxel and carboplatin this week on Sunday, I told her that if she feels well in the next 48 hours, we would continue with the chemotherapy treatment plan otherwise will delay the treatment. She will be in touch with me. Vital Signs Vital Signs Past 12 Hours Date Time Temp Pulse Resp B/P (MAP) Pulse Ox O2 Delivery O2 Flow Rate FiO2 02/13/17 20:45 76 114/72 (86) 02/13/17 20:22 37.1 83 18 116/73 (87) 96 Room Air 02/13/17 16:40 80 122/68 (86) 02/13/17 16:06 36.7 79 16 113/72 (86) 99 Room Air 02/13/17 15:30 Room Air 02/13/17 11:20 36.9 75 18 116/69 (85) 93 Room Air
[2017-02-14] VITALS: O2SAT 98
[2017-02-14 03:45] VITALS: BP 115/76; PULSE 78; TEMP 36.8; O2SAT 93
[2017-02-14] MEDS: LORAZEPAM 0.5 MG TAB PO SCH ×2 (05:51→12:50)
[2017-02-14] MEDS: HYDROmorphone INJ 1 MG/ML SYR IV PRN ×2 (05:52→12:49)
[2017-02-14] MEDS: ENOXAPARIN 80 MG/0.8 ML SYR SQ SCH (05:52)
[2017-02-14 05:57] LABS: EOS % 1.8 %; HEMATOCRIT 26.8 % (37-47); IG% 0.3 %; LYMPH % 31.3 %; LYMPH ABS # 1.25 K/uL (1.2-3.4); MEAN CELL VOLUME 91.8 fL (80-100); MEAN CORPUSCULAR HEMOGLOBIN 29.5 pg (25-34); MEAN CORPUSCULAR HGB CONC 32.1 g/dl (32-36); MEAN PLATELET VOLUME 7.9 fL (7.4-10.4); MONO % 9.3 %; NEUT % 57.3 %; PLATELET COUNT 134 K/uL (130-400); RED BLOOD COUNT 2.92 M/uL (4.2-5.4)
[2017-02-14 06:20] VITALS: Ht 165.1 cm; Wt 78.7 kg
[2017-02-14 06:39] LABS: CREATININE 0.77 mg/dl (0.60-1.20)
[2017-02-14 06:52] LABS: COMPLETE YES
[2017-02-14 07:06] VITALS: BP 114/70; PULSE 81; TEMP 36.9; O2SAT 92
[2017-02-14] MEDS: GABAPENTIN 300 MG CAP PO SCH (08:27)
[2017-02-14] MEDS: CIPROFLOXACIN 500 MG TAB PO SCH (08:27)
[2017-02-14] MEDS: DOCUSATE SODIUM 100 MG CAP PO SCH (08:27)
[2017-02-14] MEDS: DULOXETINE (CYMBALTA) 30 MG CAP PO SCH (08:27)
[2017-02-14] MEDS: LOSARTAN POTASSIUM 50 MG TAB PO SCH (08:28)
[2017-02-14] MEDS: POLYETHYLENE (MIRALAX) 17 GM PACK PO SCH (08:28)
[2017-02-14 08:30] VITALS: O2SAT 92
[2017-02-14] MEDS: MoRPHine SULFATE CR 15 MG TAB (MS CONTIN) PO SCH (08:31)
[2017-02-14] MEDS: INSULIN ASPART 100 UNITS/ML 3 ML PEN SC SCH ×2 (08:42→12:57)
--- NOTE | 2017-02-14 09:07 | Pain Management Progress Note ---
Pain Management Progress Note Date of Service Feb 14, 2017. Subjective I saw Ms. Ward today at [facility]. She is a 57-year-old female with a history of endometrial cancer with a right lower quadrant mass. She currently works with Dr. Dickerson in regards to chemotherapy. She states that she's had right lower extremity burning prickling shooting pain from her L1-3 dermatomes over the last few weeks. She reports that this these symptoms have been increasing in frequency and intensity. She denies any motor weakness bowel or bladder incontinence footdrop or falls. She does note that the pain is intermittent and persistent rating between 5 and 9 out of 10 when pain is most severe. She states that nothing seems to make the pain better or worse and she's had limited benefit with MS Contin and oxycodone. She reports a significant improvement in her burning neuropathic pain particularly in her obturator nerve distribution with gabapentin dosing at 300 mg by mouth twice a day. She states that pain relief lasts for a few hours after intake of gabapentin and then diminishes with time. She reports minimal side effects from gabapentin at this time including mental sedation. She does admit to constipation currently Objective Vital Signs: Last Vital Signs Documentation Date Time Temp Pulse Resp B/P (MAP) Pulse Ox O2 Delivery O2 Flow Rate FiO2 02/14/17 07:06 36.9 81 18 114/70 (85) 92 Room Air Physical Exam: Awake alert noted 3 appearing in no acute distress lying in her bed eating breakfast She has tenderness to examination over her right obturator and L2 to 3 distributions 5 strength bilateral lower extremity is equal throughout with intact sensation gait was not observed cranial nerves are grossly intact Laboratory Laboratory Findings 02/14/17 05:45 Red Blood Count 2.92 L, Mean Corpuscular Volume 91.8, Mean Corpuscular Hemoglobin 29.5, Mean Corpuscular Hemoglobin Concent 32.1, Mean Platelet Volume 7.9, Neutrophils (%) (Auto) 57.3, Lymphocytes (%) (Auto) 31.3, Monocytes (%) ( Auto) 9.3, Eosinophils (%) (Auto) 1.8, Basophils (%) (Auto) 0.0, Neutrophils # ( Auto) 2.30, Lymphocytes # (Auto) 1.25, Monocytes # (Auto) 0.37, Eosinophils # ( Auto) 0.07, Basophils # (Auto) 0.00 Assessment 1. Neuropathic pain right lower extremity 2. Endometrial cancer with large right lower quadrant mass Recommendations 1. Recommend continued MS Contin and oxycodone dosing at their current doses. 2. We will increase her gabapentin to 300 mg by mouth 3 times a day 3 times a day and continue Cymbalta at 30 mg by mouth daily 3. She could be a candidate for superior hypogastric plexus block in the future if she has continued pain in her lower abdominal region but would hold at this time. 4. She is welcome to follow up with me as an outpatient. The patient will call our office if she desires to schedule. 5. Please call with any questions [employer] This chart was completed in part utilizing [employer] Voice Recognition Software. Random word insertions, pronoun errors, and incomplete sentences are an occasional consequence of this system due to software limitations and ambient noise. Any questions or concerns about the content, text or information contained within the body of this dictation should be directly addressed to the provider for clarification.
[2017-02-14 11:22] VITALS: BP 110/72; PULSE 82; TEMP 36.9; O2SAT 96
[2017-02-14] MEDS ORDERED: GABAPENTIN 300 MG CAP PO SCH (14:00)
[2017-02-14] MEDS ORDERED: OXYC1TAB3 PO (15:14)
[2017-02-14] MEDS ORDERED: MRPSR15 PO (15:14)
[2017-02-14] MEDS ORDERED: CYM30 PO (15:14)
[2017-02-14] MEDS ORDERED: NRN300 PO (15:14)
--- NOTE | 2017-02-14 15:14 | Discharge Instructions ---
Discharge Instructions Date of Service Feb 14, 2017. Admission Reason for Admission: Anemia Discharge Discharge Diagnosis / Problem: COMPLICATED UTI/ANEMIA /ENDOMETRIAL CA Discharge Goals Goal(s): Decrease discomfort, Improve disease control Activity Recommendations Activity Limitations: resume your previous activity . Instructions / Follow-Up Instructions / Follow-Up HOSPITAL FOLLOW UP ON 02/20/2017 @ 1:10 PM Obie Hines MD Family [facility] Current Hospital Diet Patient's current hospital diet: Diabetes Type 2 Diet Discharge Diet Recommended Diet: Diabetes Type 2 Diet Pending Studies Studies pending at discharge: no Medical Emergencies . Who to Call and When: Medical Emergencies: If at any time you feel your situation is an emergency, please call 911 immediately. . Non-Emergent Contact Non-Emergency issues call your: Primary Care Provider . . "Provider Documentation" section prepared by Tania Langston. . VTE Core Measure Inpt VTE Proph given/why not?: Enoxaparin (Lovenox)SQ
[2017-02-14] MEDS ORDERED: CPR500 PO (15:19)
--- NOTE | 2017-02-14 15:27 | Progress Note ---
Internal Med Progress Note Date of Service: Feb 14, 2017. Provider Documentation: SUBJECTIVE: feels much better today pain reasonably controlled wants to go home today OBJECTIVE: Vital Signs-as noted below Exam: General-chronically ill appearing,no sign of distress Eyes-sclera non icteric Lungs-CTA Heart-regular S1/S2 Abdomen-soft,non tender Extremities-no lower ext edema Neuro-AAO x3, no focal deficit Lab data as noted below. ASSESSMENT & PLAN: COMPLICATED UTI In setting of R nephrostomy tube- changed 02/07/17 at [facility] [place] Urine culture from [place]: Leclercia Adecarboxylata: sensitive to Ciprofloxacin Repeat Blood/Urine culture 02/09: No growth Presented with flank pain radiating to leg, hematuria CT ABD as below S/P cefepime for 3 days >>>>. will be discharged home with PO Cipro ACUTE ON CHRONIC ANEMIA Hb:6.3: baseline in mid 8' Hb:8.6 today S/P 3 units PRBCs Discussed with 02/11/17 and 02/12 Monitor H&H PANCYTOPENIA Secondary to chemotherapy Has hematuria H&H stable post transfusion Monitor CBC CHRONIC PAIN Has chronic pain right leg, right pelvic region Increased MS contin 30 mg BID, PRN Oxy IR for break through and Dilaudid for extreme pain only Neurontin 300mg TID and Zoloft replaced with Cymbalta. Pain management following-appreciate input RECURRENT ENDOMETRIAL CANCER S/p JESÚS BSO On chemo with paclitaxel and carboplatin- last treatment 3 weeks ago, received prophylactic Neulasta Follows with Dr. Johan Dickerson Appreciate hem/onc input HYPERTENSION stable Continue losartan DM II Hold metformin during hospitalization Insulin sliding scale coverage ANXIETY/ DEPRESSION Continue Zoloft and Ativan CHRONIC CONSTIPATION Continue Colace and Miralax H/O OF DVT/ VTE PROPHYLAXIS Lovenox initially held due to anemia, thrombocytopenia, hematuria Hb stable Restarted lovenox on 02/12/17. Hb stable. (Was on Lovenox prior to hospitalization) Code Status: FULL CODE DISPOSITION Follows with Dr. Gaspar for primary care Follows with for Oncology discharge home today Vital Signs: Date Time Temp Pulse Resp B/P (MAP) Pulse Ox O2 Delivery O2 Flow Rate FiO2 02/14/17 11:22 36.9 82 18 110/72 (85) 96 02/14/17 08:30 92 Room Air 6/14/17 07:06 36.9 81 18 114/70 (85) 92 Room Air 02/14/17 03:45 36.8 78 18 115/76 (89) 93 Room Air 02/14/17 00:00 98 Room Air 02/13/17 23:40 36.7 75 18 114/73 (87) 98 Room Air 02/13/17 20:45 76 114/72 (86) 02/13/17 20:22 37.1 83 18 116/73 (87) 96 Room Air 02/13/17 16:40 80 122/68 (86) 02/13/17 16:06 36.7 79 16 113/72 (86) 99 Room Air 02/13/17 15:30 Room Air Lab Results: Results Past 24 Hours Test 02/13/17 16:26 02/13/17 19:57 02/14/17 05:45 02/14/17 07:45 Range/Units Bedside Glucose 94 150 122 70-90 mg/dl White Blood Count 4.00 4.8-10.8 K/uL Red Blood Count 2.92 4.2-5.4 M/uL Hemoglobin 8.6 12.0-16.0 g/dL Hematocrit 26.8 37-47 % Mean Corpuscular Volume 91.8 80-100 fL Mean Corpuscular Hemoglobin 29.5 25-34 pg Mean Corpuscular Hemoglobin Concent 32.1 32-36 g/dl Platelet Count 134 130-400 K/uL Mean Platelet Volume 7.9 7.4-10.4 fL Neutrophils (%) (Auto) 57.3 % Lymphocytes (%) (Auto) 31.3 % Monocytes (%) (Auto) 9.3 % Eosinophils (%) (Auto) 1.8 % Basophils (%) (Auto) 0.0 % Neutrophils # (Auto) 2.30 1.4-6.5 K/uL Lymphocytes # (Auto) 1.25 1.2-3.4 K/uL Monocytes # (Auto) 0.37 0.11-0.59 K/uL Eosinophils # (Auto) 0.07 0-0.5 K/uL Basophils # (Auto) 0.00 0-0.2 K/uL RDW Standard Deviation 54.8 36.4-46.3 fL RDW Coefficient of Variation 16.3 11.5-14.5 % Immature Granulocyte % (Auto) 0.3 % Immature Granulocyte # (Auto) 0.01 0.00-0.02 K/uL Red Blood Cell Morphology Unremarkable Creatinine 0.77 0.60-1.20 mg/dl Est Creatinine Clear Calc Drug Dose 82.6 ml/min Estimated GFR () 98.6 Estimated GFR (Non- 85.1 Test 02/14/17 11:31 Range/Units Bedside Glucose 125 70-90 mg/dl
[2017-02-14 15:28] VITALS: BP 110/72; PULSE 82; TEMP 36.9; O2SAT 96
--- NOTE | 2017-02-14 15:29 | Discharge Summary ---
Discharge Summary Date of Service Feb 14, 2017. Discharge Summary Admission Date: Feb 09, 2017 at 13:01 Discharge Date: Feb 14, 2017 Discharge Disposition: Home Principal Diagnosis: COMPLICATED UTI/ANEMIA /ENDOMETRIAL CA Procedures: CT ABDOMEN/PELVIS WITH CONTRAST : IMPRESSION: 1. Large complex soft tissue mass right lateral pelvic sidewall region measuring 10 x 10 x 12 cm. 2. This potentially represents hematoma, neoplastic mass, versus partially hemorrhagic neoplastic mass. 3. This mass displaces the right ureter in the right ureteral stent medially. 4. Moderate atrophy right kidney with distention of the right renal pelvis. 5. Operative changes consistent with a prior hysterectomy, right-sided nephrostomy, as well as right ureteral stent placement Consultations: PAIN MANAGEMENT HEMATOLOGY /ONCOLOGY Medication Reconciliation New Medications: Ciprofloxacin (Ciprofloxacin HCl) 500 Mg Tab 500 MG PO BID for 2 Days, #4 TAB Duloxetine HCl (Duloxetine HCl) 30 Mg Cap 30 MG PO QAM for 30 Days, #30 CAP Gabapentin (Gabapentin) 300 Mg Cap 300 MG PO TID for 30 Days, #90 CAP 2 Refills Morphine Sulfate (Morphine Sulfate ER) 15 Mg Tabcr 30 MG PO Q12, #60 Continued Medications: Dexamethasone (Decadron) 4 Mg Tab 20 MG PO DIRECTED, TAB TAKE 5 TABLETS WITH FOOD ON THE NIGHT BEFORE CHEMO AND ON THE MORNING OF THE DAY OF CHEMO AND REPEAT WITH EACH CYCLE. Docusate Sodium (Docusate Sodium) 100 Mg Tab 50 MG PO BID Enoxaparin (Lovenox) 100 Mg/Ml Inj 0.9 ML SQ Q12 Lorazepam (Ativan) 0.5 Mg Tab 0.5 MG PO Q6 for Pain, TAB Losartan Potassium (Cozaar) 50 Mg Tab 50 MG PO DAILY, TAB Metformin HCl (Metformin HCl ER) 1,000 Mg Tab 1000 MG PO BID Ondansetron Hcl (Zofran) 8 Mg Tab 8 MG PO TID PRN for Nausea, TAB Oxycodone Ir (Roxicodone Ir) 5 Mg Tab 5 MG PO Q6H PRN for Pain, #20 TAB (This prescription has been renewed) Polyethylene Glycol 3350 (Miralax) 1 Pow Pow 17 GM PO DAILY Prochlorperazine Maleate (Compazine) 10 Mg Tab 10 MG PO Q6H PRN for Nausea, TAB Zolpidem Tartrate (Ambien) 10 Mg Tab 10 MG PO HS PRN for Sleep, TAB Discontinued Medications: Cephalexin Monohydrate (Keflex) 500 Mg Cap 500 MG PO BID, CAP Morphine Cont Rel (Ms Contin) 15 Mg Tabcr 15 MG PO Q12, TAB Sertraline (Zoloft) 50 Mg Tab 50 MG PO DAILY, TAB Admission Information HPI (per Admitting provider): This is a 56 year old female with PMH of recurrent endometrial cancer on chemo, hypertension, DM 2, right percutaneous nephrostomy for hydronephrosis in 10/2016 , hx DVT RLE in 09/2016 on Lovenox, and other problems listed below who presents to the ED for right flank pain. Pt follows with Dr. Gaspar for primary care and Dr. Dickerson for oncology. Last chemo with pacliteaxel and carboplatin was 3 weeks ago. She has also been treated with prophylactic Neulasta. Pt was seen at [facility] 2 days ago for drainage around right nephrostomy tube site and had the tube exchanged. She was placed on Keflex since that time. Urine culture from 02/07/17 grew 100 TO 999 colonies/mL non lactose fermenting gram negative rods. Since 2 days ago patient reports right flank pain described as ache, currently improved after receiving IV morphine in ER. She reports annelise hematuria x 2 days. No other bleeding noticed except drop of blood blowing nose in ER. Admits to feeling tired. Denies fever, chills, dizziness, JAIMES, URI symptoms, cough, SOB, chest pain, abdominal pain, N/V/D, dysuria, increasing edema, calf pain. Physical Exam (per Admitting): General Appearance: WD/WN, no apparent distress, + pertinent finding (alert cooperative 56 year old female, lying in bed, friend at bedside) Head: normocephalic, atraumatic Eyes: normal inspection, sclerae normal ENT: hearing grossly normal, pharynx normal Neck: supple, trachea midline Respiratory/Chest: lungs clear, normal breath sounds, no respiratory distress, no accessory muscle use Cardiovascular: regular rate, rhythm, no murmur Abdomen/GI: normal bowel sounds, non tender, soft Back: + pertinent finding (mild right flank tenderness around nephrostomy tube area) Extremities/Musculoskelatal: no calf tenderness, no pedal edema Neurologic/Psych: alert, normal mood/affect, oriented x 3 Skin: normal color, warm/dry Hospital Course COMPLICATED UTI In setting of R nephrostomy tube- changed 02/07/17 at [facility] [place] Urine culture from [place]: Leclercia Adecarboxylata: sensitive to Ciprofloxacin Repeat Blood/Urine culture 02/09: No growth Presented with flank pain radiating to leg, hematuria CT ABD as below S/P cefepime for 3 days >>>>. will be discharged home with PO Cipro ACUTE ON CHRONIC ANEMIA Hb:6.3: baseline in mid Hb:8.6 today S/P 3 units PRBCs Discussed with 02/11/17 and 02/12 Monitor H&H PANCYTOPENIA Secondary to chemotherapy Has hematuria H&H stable post transfusion Monitor CBC CHRONIC PAIN Has chronic pain right leg, right pelvic region Increased MS contin 30 mg BID, PRN Oxy IR for break through and Dilaudid for extreme pain only Neurontin 300mg TID and Zoloft replaced with Cymbalta. Pain management following-appreciate input RECURRENT ENDOMETRIAL CANCER S/p JESÚS BSO On chemo with paclitaxel and carboplatin- last treatment 3 weeks ago, received prophylactic Neulasta Follows with Dr. Johan Dickerson Appreciate hem/onc input HYPERTENSION stable Continue losartan DM II Hold metformin during hospitalization Insulin sliding scale coverage ANXIETY/ DEPRESSION Continue Zoloft and Ativan CHRONIC CONSTIPATION Continue Colace and Miralax H/O OF DVT/ VTE PROPHYLAXIS Lovenox initially held due to anemia, thrombocytopenia, hematuria Hb stable Restarted lovenox on 02/12/17. Hb stable. (Was on Lovenox prior to hospitalization) Code Status: FULL CODE DISPOSITION Follows with Dr. Gaspar for primary care Follows with for Oncology discharge home today Total time spent on discharge = 35mins This includes examination of the patient, discharge planning, medication reconciliation, and communication with other providers. Discharge Instructions Discharge Instructions Date of Service Feb 14, 2017. Admission Reason for Admission: Anemia Discharge Discharge Diagnosis / Problem: COMPLICATED UTI/ANEMIA /ENDOMETRIAL CA Discharge Goals Goal(s): Decrease discomfort, Improve disease control Activity Recommendations Activity Limitations: resume your previous activity . Instructions / Follow-Up Instructions / Follow-Up HOSPITAL FOLLOW UP ON 02/20/2017 @ 1:10 PM Obie Hines MD Family [facility] Current Hospital Diet Patient's current hospital diet: Diabetes Type 2 Diet Discharge Diet Recommended Diet: Diabetes Type 2 Diet Pending Studies Studies pending at discharge: no Medical Emergencies . Who to Call and When: Medical Emergencies: If at any time you feel your situation is an emergency, please call 911 immediately. . Non-Emergent Contact Non-Emergency issues call your: Primary Care Provider . . "Provider Documentation" section prepared by Tania Langston. . VTE Core Measure Inpt VTE Proph given/why not?: Enoxaparin (Lovenox)SQ Additional Copies To Johan Dickerson M.D. Taylor, William F.JR, M.D. ([facility])
[2017-03-13] MEDS ORDERED: GABA-113 PO (08:06)
[2017-03-13] MEDS ORDERED: OXYC1TAB3 PO (08:06)
[2017-03-13] MEDS ORDERED: CYM/30 PO (08:07)
[2017-04-13] MEDS ORDERED: PRLSR20 PO (10:53)
[2017-04-13] MEDS ORDERED: SENN-61 PO (10:53)
[2017-04-13] MEDS ORDERED: OXYC20TA50 PO (10:53)
[2017-04-13] MEDS ORDERED: ACET-1311 PO (10:53)
[2017-04-13] MEDS ORDERED: ENOX80IN SQ (10:53)
[2017-04-13] MEDS ORDERED: GABA-113 PO (10:53)
[2017-04-13] MEDS ORDERED: CYCL10TA6 PO (10:53)
[2017-04-13] MEDS ORDERED: FAMO20TA11 PO (10:53)
[2017-04-23] MEDS ORDERED: FNTTP50 TD (14:20)
== END 2017-02-14 16:15 | disposition home or self-care (01) | DRG 698 ==
LOC: C.EDB 09:56 → C.4E 13:01 → EDBEDREQ 13:46 → ENRESERV 13:59
PROVIDERS: ADMIT Internal Medicine; ATTEND Hospitalist
DX: T83.512A Infection and inflammatory reaction due to nephrostomy catheter, initial encounter (principal); N39.0 Urinary tract infection, site not specified; D61.810 Antineoplastic chemotherapy induced pancytopenia; C54.1 Malignant neoplasm of endometrium; E11.9 Type 2 diabetes mellitus without complications; K21.9 Gastro-esophageal reflux disease without esophagitis; I10 Essential (primary) hypertension; G89.29 Other chronic pain; K59.00 Constipation, unspecified; F41.9 Anxiety disorder, unspecified; F32.9 Major depressive disorder, single episode, unspecified; Y84.6 Urinary catheterization as the cause of abnormal reaction of the patient, or of later complication, without mention of misadventure at the time of the procedure; Z79.01 Long term (current) use of anticoagulants; Z90.710 Acquired absence of both cervix and uterus; Z80.9 Family history of malignant neoplasm, unspecified; Z83.79 Family history of other diseases of the digestive system; Z82.49 Family history of ischemic heart disease and other diseases of the circulatory system; Z84.1 Family history of disorders of kidney and ureter

== ENCOUNTER 2017-04-02 16:30 | Emergency (ER) | payer BC ==
[~2017-04-02] VITALS: Ht 165.1 cm; Wt 74.0 kg
[~2017-04-02 16:30] MED LIST changes: -COUMADIN PO; +CYM/30 PO; +DOCU1TAB6 PO; +DXM/4 PO; +ENOX100I SQ; +GABA-113 PO; -HYDR-5688 PO; -LOSARTAN PO; -LOVENOX INJ; +MRPSR15 PO; -MULT-506 PO; +ONDA8TAB6 PO; +POLY335019 PO; +PROC1TAB5 PO; -TRAM-10 PO; -ZOLOFT PO; +ZOLP10TA PO; -ZOLP5TAB PO
[2017-04-02 16:33] VITALS: TEMP 37; Ht 165.1 cm; Wt 74.0 kg
[2017-04-02] MEDS ORDERED: SODIUM CHLORIDE 0.9% 1000ML 1,000 ML IV STA (17:00)
[2017-04-02] MEDS ORDERED: HYDROmorphone INJ 1 MG/ML SYR IV STA (17:00)
[2017-04-02 17:53] LABS: BASO % 0.1 %; BASO ABS # 0.01 K/uL (0-0.2); COMPLETE YES; EOS % 0.8 %; HEMATOCRIT 30.4 % (37-47); IG% 0.2 %; LYMPH % 14.2 %; LYMPH ABS # 1.21 K/uL (1.2-3.4); MEAN CELL VOLUME 88.1 fL (80-100); MEAN CORPUSCULAR HEMOGLOBIN 28.1 pg (25-34); MEAN CORPUSCULAR HGB CONC 31.9 g/dl (32-36); MEAN PLATELET VOLUME 8.2 fL (7.4-10.4); MONO % 6.7 %; PLATELET COUNT 177 K/uL (130-400); RED BLOOD COUNT 3.45 M/uL (4.2-5.4); WHITE BLOOD COUNT 8.53 K/uL (4.8-10.8)
[2017-04-02 18:08] LABS: CREATININE 0.78 mg/dl (0.60-1.20)
[2017-04-02 18:09] LABS: BUN/CREATININE RATIO 19.5 (10-20); CALCIUM 10.3 mg/dl (8.5-10.1); POTASSIUM 4.2 mmol/L (3.5-5.1)
--- NOTE | 2017-04-02 19:29 | DIAGNOSTIC IMAGING REPORT ---
PELVIS 3 VIEWS CLINICAL HISTORY: Fall several days ago. FINDINGS: 3 pelvic radiographs are correlated with pelvic CT dated 02/09/2017. The skeletal structures are osteopenic. There is no radiographic evidence of fracture involving the hips or pelvis. Mild arthritic change is seen in the hips, left greater than right. Sclerotic change is noted in the sacroiliac joints and pubic symphysis. A right ureteral stent is again noted. Numerous pelvic surgical clips are noted. There is a nonobstructed abdominal bowel gas pattern. The overlying soft tissues are within normal limits. IMPRESSION: Osteopenia and degenerative change as above. There is no radiographic evidence of fracture involving the hips or bony pelvis. Electronically signed by: Jacek Ramirez M.D. 04/02/2017 7:28 PM Dictated Date/Time: 04/02/2017 7:26 PM
--- NOTE | 2017-04-02 19:42 | EMERGENCY ROOM VISIT NOTE ---
History Report prepared by Kina: Matt Holbrook Under the Supervision of: Dr. Nestor Nicholson M.D. First contact with patient: 16:53 Chief Complaint: PAIN (GENERALIZED) Stated Complaint: HAVE CANCER IN GROIN AREA-SAT SLIPPED-DID A SPLIT History of Present Illness The patient is a 57 year old female who presents to the Emergency Room with complaints of constant groin pain s/p fall occurring two days ago. The patient states that she fell into a split position and injured her groin. She did not hit her head or lose consciousness during the fall. She also complains of pain in her right leg. The patient has a history of uterine cancer and is currently undergoing chemotherapy treatments. Her most recent chemotherapy was two months ago. She denies any known fevers, lightheadedness, nausea, or vomiting. Source of History: patient Onset: Two days ago Position: other (groin) Timing: constant Associated Symptoms: No LOC, No fevers, No nausea, No vomiting Note: The patient denies any lightheadedness. She also complains of right leg pain. Review of Systems See HPI for pertinent positives & negatives. A total of 10 systems reviewed and were otherwise negative. 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 Surgical Problems: (1) H/O blepharoplasty (2) History of ureter stent (3) S/P appendectomy (4) S/P section (5) S/P cholecystectomy (6) S/P JESÚS-BSO Family History Cancer Gallbladder disease Heart disease MOTHER Kidney stones Social History Smoking Status: Never Smoker Alcohol Use: occasionally Marital Status: Housing Status: lives with family Occupation Status: employed Current/Historical Medications Scheduled Dexamethasone (Decadron), 20 MG PO DIRECTED Docusate Sodium (Docusate Sodium), 50 MG PO BID Duloxetine HCl (Cymbalta), 1 CAP PO DAILY Enoxaparin (Lovenox), 0.9 ML SQ Q12 Gabapentin (Neurontin), 600 MG PO TID Lorazepam (Ativan), 0.5 MG PO Q6 Metformin HCl (Metformin HCl ER), 1,000 MG PO BID Morphine Sulfate (Morphine Sulfate ER), 30 MG PO Q12 Polyethylene Glycol 3350 (Miralax), 17 GM PO DAILY Scheduled PRN Ondansetron Hcl (Zofran), 8 MG PO TID PRN for Nausea Oxycodone Ir (Roxicodone Ir), 5 MG PO Q6H PRN for Pain Prochlorperazine Maleate (Compazine), 10 MG PO Q6H PRN for Nausea Zolpidem Tartrate (Ambien), 10 MG PO HS PRN for Sleep Allergies Coded Allergies: No Known Allergies (Unverified , OTHER, 04/02/17) ' Physical Exam Vital Signs Date Time Temp Pulse Resp B/P (MAP) Pulse Ox O2 Delivery O2 Flow Rate FiO2 04/02/17 20:03 98 20 126/88 98 04/02/17 19:09 106 20 130/84 93 Room Air 04/02/17 18:00 100 18 132/93 93 Room Air 04/02/17 16:33 37.0 100 17 122/70 95 Room Air Physical Exam GENERAL: Patient is uncomfortable appearing and in moderate distress. HEENT: No acute trauma, normocephalic atraumatic, mucous membranes moist, no nasal congestion, no scleral icterus. NECK: No stridor, no adenopathy, no meningismus, trachea is midline. LUNGS: No dyspnea. Clear to auscultation and equal bilaterally. No wheeze, no rhonchi. HEART: Regular rate and rhythm. No murmurs, rubs, gallops appreciated. ABDOMEN: Soft, nontender, bowel sounds positive, no masses appreciated, no peritonitis. BACK: No midline tenderness, no CVA tenderness. Right nephrostomy drain in place. EXTREMITIES: No cyanosis, no edema. Pain with ROM of the bilateral hips. NEUROLOGIC: Alert and oriented, no acute motor or sensory deficits, no focal weakness, cranial nerves grossly intact. SKIN: No rash, no jaundice, no diaphoresis. Medical Decision & Procedures ER Provider Diagnostic Interpretation: X ray results are stated below per my interpretation and the radiologist's interpretation. PELVIS 3 VIEWS FINDINGS: 3 pelvic radiographs are correlated with pelvic CT dated 02/09/2017. The skeletal structures are osteopenic. There is no radiographic evidence of fracture involving the hips or pelvis. Mild arthritic change is seen in the hips, left greater than right. Sclerotic change is noted in the sacroiliac joints and pubic symphysis. A right ureteral stent is again noted. Numerous pelvic surgical clips are noted. There is a nonobstructed abdominal bowel gas pattern. The overlying soft tissues are within normal limits. IMPRESSION: Osteopenia and degenerative change as above. There is no radiographic evidence of fracture involving the hips or bony pelvis. Electronically signed by: Jaeck Ramirez M.D. Laboratory Results 04/02/17 17:35 Red Blood Count 3.45, Mean Corpuscular Volume 88.1, Mean Corpuscular Hemoglobin 28.1, Mean Corpuscular Hemoglobin Concent 31.9, Mean Platelet Volume 8.2, Neutrophils (%) (Auto) 78.0, Lymphocytes (%) (Auto) 14.2, Monocytes (%) (Auto) 6.7, Eosinophils (%) (Auto) 0.8, Basophils (%) (Auto) 0.1, Neutrophils # (Auto) 6.65, Lymphocytes # (Auto) 1.21, Monocytes # (Auto) 0.57, Eosinophils # (Auto) 0.07, Basophils # (Auto) 0.01 04/02/17 17:35 Test 04/02/17 17:35 White Blood Count 8.53 K/uL (4.8-10.8) Red Blood Count 3.45 M/uL (4.2-5.4) Hemoglobin 9.7 g/dL (12.0-16.0) Hematocrit 30.4 % (37-47) Mean Corpuscular Volume 88.1 fL (80-100) Mean Corpuscular Hemoglobin 28.1 pg (25-34) Mean Corpuscular Hemoglobin Concent 31.9 g/dl (32-36) Platelet Count 177 K/uL (130-400) Mean Platelet Volume 8.2 fL (7.4-10.4) Neutrophils (%) (Auto) 78.0 % Lymphocytes (%) (Auto) 14.2 % Monocytes (%) (Auto) 6.7 % Eosinophils (%) (Auto) 0.8 % Basophils (%) (Auto) 0.1 % Neutrophils # (Auto) 6.65 K/uL (1.4-6.5) Lymphocytes # (Auto) 1.21 K/uL (1.2-3.4) Monocytes # (Auto) 0.57 K/uL (0.11-0.59) Eosinophils # (Auto) 0.07 K/uL (0-0.5) Basophils # (Auto) 0.01 K/uL (0-0.2) RDW Standard Deviation 51.3 fL (36.4-46.3) RDW Coefficient of Variation 15.9 % (11.5-14.5) Immature Granulocyte % (Auto) 0.2 % Immature Granulocyte # (Auto) 0.02 K/uL (0.00-0.02) Anion Gap 7.0 mmol/L (3-11) Est Creatinine Clear Calc Drug Dose 79.2 ml/min Estimated GFR () 97.1 Estimated GFR (Non- 83.8 BUN/Creatinine Ratio 19.5 (10-20) Calcium Level 10.3 mg/dl (8.5-10.1) Laboratory results as reviewed by me. Medications Administered Medications (Trade) Dose Ordered Sig/Alivia Route Start Time Stop Time Status Last Admin Dose Admin Sodium Chloride 1,000 ml @ 75 mls/hr [id number] STAT IV 04/02/17 17:00 04/02/17 21:20 DC 04/02/17 17:40 75 MLS/HR Hydromorphone HCl (Dilaudid Inj) 1 mg NOW STAT IV 04/02/17 17:00 04/02/17 17:02 DC 04/02/17 17:40 1 MG Heparin Sodium (Porcine) (Heparin 100 Unit/ml 5ml Flush) 5 ml STK-MED ONCE .ROUTE 04/02/17 19:51 04/02/17 19:52 DC 04/02/17 19:51 5 ML ED Course 1654: The patient was evaluated in room C5. A complete history and physical exam was performed. 0: Ordered Dilaudid Inj 1 mg IV, Sodium Chloride 1000 ml @ 75 mls/hr. 1817: I reassessed the patient. She feels much better. 1939: Reevaluated the patient. Discussed results and discharge instructions: she verbalized understanding and agreement. The patient is ready for discharge. Medical Decision Differential: fracture, dislocation, sprain, intrapelvic bleeding, anemia, infection, as well as other etiologies were considered. Very pleasant 57 yr old female with fall 36 hours ago resulting in pelvic pain. Imaging without fracture. Uterine CA relapse with recent anemia thus labs which were unremarkable. Feeling vastly better after IV Dilaudid and doing well for for several hours. Doing well and discharged to home. Has extensive pain medications at home as needed. Impression Primary Impression: Strain of pelvis Scribe Attestation The scribe's documentation has been prepared under my direction and personally reviewed by me in its entirety. I confirm that the note above accurately reflects all work, treatment, procedures, and medical decision making performed by me. Departure Information Dispostion Home / Self-Care Referrals No Doctor, Assigned (PCP) Patient Instructions My [facility] Additional Instructions Rest and avoid over exertion. Pain may take quite some time to resolve. Use your pain medications as needed. Oxy IR can be used 1 to 2 tabs every 4 to 6 hours as needed. Problem Qualifiers Primary Impression: Strain of pelvis Encounter type: initial encounter Qualified Codes: S39.013A - Strain of muscle, fascia and tendon of pelvis, initial encounter
[2017-04-02 20:03] VITALS: BP 126/88; PULSE 98; O2SAT 98
[2017-04-13] MEDS ORDERED: ENOX80IN SQ (10:53)
[2017-04-13] MEDS ORDERED: CYCL10TA6 PO (10:53)
[2017-04-13] MEDS ORDERED: FAMO20TA11 PO (10:53)
[2017-04-13] MEDS ORDERED: PRLSR20 PO (10:53)
[2017-04-13] MEDS ORDERED: OXYC20TA50 PO (10:53)
[2017-04-13] MEDS ORDERED: SENN-61 PO (10:53)
[2017-04-13] MEDS ORDERED: ACET-1311 PO (10:53)
[2017-04-13] MEDS ORDERED: GABA-113 PO (10:53)
[2017-04-23] MEDS ORDERED: FNTTP50 TD (14:20)
== END 2017-04-02 20:05 | disposition home or self-care (01) ==
LOC: C.EDB 16:32 → C.EDC 20:05
DX: S76.819A Strain of other specified muscles, fascia and tendons at thigh level, unspecified thigh, initial encounter (principal); W19.XXXA Unspecified fall, initial encounter; C55 Malignant neoplasm of uterus, part unspecified; C77.2 Secondary and unspecified malignant neoplasm of intra-abdominal lymph nodes; D64.9 Anemia, unspecified; E11.9 Type 2 diabetes mellitus without complications; I10 Essential (primary) hypertension; K58.9 Irritable bowel syndrome, unspecified; D18.1 Lymphangioma, any site; M85.9 Disorder of bone density and structure, unspecified; Z86.718 Personal history of other venous thrombosis and embolism; Z79.84 Long term (current) use of oral hypoglycemic drugs; Z84.1 Family history of disorders of kidney and ureter; Z79.01 Long term (current) use of anticoagulants

== ENCOUNTER 2017-04-06 09:58 | Emergency (ER) | payer BC ==
[~2017-04-06] VITALS: Ht 165.1 cm; Wt 71.5 kg
[2017-04-06 10:16] VITALS: TEMP 36.9
--- NOTE | 2017-04-06 12:06 | DIAGNOSTIC IMAGING REPORT ---
CT SCAN OF THE BRAIN WITHOUT IV CONTRAST CLINICAL HISTORY: Head injury. Fall. COMPARISON STUDY: No priors. TECHNIQUE: Unenhanced axial CT scan of the brain is performed from the vertex to the skull base. Automated dose control exposure was utilized. A dose lowering technique was utilized adhering to the principles of ALARA. CT DOSE: 537.48 mGy.cm FINDINGS: Brain parenchyma: There is minimal periventricular microangiopathic disease. The brain parenchyma is otherwise normal in appearance. There is no hemorrhage, mass effect, or evidence of acute territorial ischemia by CT criteria. Lopez-white matter is preserved. No extra-axial fluid collection is seen. Ventricles, sulci, cisterns: Normal in configuration. Intracranial vasculature: There is mild atherosclerotic calcification of the cavernous carotid arteries. Calvarium: There is no depressed calvarial fracture. Sinuses and mastoids: The visualized paranasal sinuses are clear. There is a trace right mastoid effusion. The left mastoid air cells are well pneumatized. Orbits: The bony orbits are grossly intact. IMPRESSION: There is no hemorrhage, mass effect, or evidence of acute territorial ischemia by CT criteria. Electronically signed by: Jacek Ramirez M.D. 04/06/2017 12:05 PM Dictated Date/Time: 04/06/2017 12:03 PM
[2017-04-06] MEDS ORDERED: OXYCODONE HCL IR 5 MG TAB (IMMEDIATE RELEASE) PO STA (12:50)
[2017-04-06] MEDS ORDERED: LORAZEPAM 1 MG TAB SL STA (12:50)
--- NOTE | 2017-04-06 14:09 | EMERGENCY ROOM VISIT NOTE ---
History Report prepared by Kina: Donna Maldonado Under the Supervision of: Dr. Maribel Mendez M.D. 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 The patient is currently undergoing treatment for uterine cancer. She has been having increasing right leg weakness since her cancer was diagnosed. The patient states that over the past couple of days she has had multiple falls due to her right leg weakness. She states that it just keeps giving out. This morning when the patient fell, she hit the back of her head. She denies any LOC or vomiting. She went to get her chemotherapy treatment this morning and told them about this incident. They sent the patient to the ED for further evaluation before they would give her the chemotherapy. The patient rates her current pain as a 5/10 in severity. She has not had any recent imaging of her lower back. Dr. Dickerson is her oncologist. The patient gets Lovenox injections. She states that she has had physical therapy in the past for her right leg weakness and it has helped. She thinks that this is what she needs again. Source of History: patient Onset: HOME CARE SPECIALIST Position: other (global) Symptom Intensity: 5/10 Timing: other (episode) Modifying Factors (Worsening): other (right leg weakness) Associated Symptoms: + weakness (right leg), No LOC, No vomiting Review of Systems See HPI for pertinent positives & negatives. A total of 10 systems reviewed and were otherwise negative. 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 (12) Numbness of left hand Surgical Problems: (1) H/O blepharoplasty (2) History of ureter stent (3) S/P appendectomy (4) S/P section (5) S/P cholecystectomy (6) S/P JESÚS-BSO Family History Cancer Gallbladder disease Heart disease MOTHER Kidney stones Social History Smoking Status: Former Smoker Alcohol Use: occasionally Marital Status: Housing Status: lives with family Occupation Status: employed Current/Historical Medications Scheduled Dexamethasone (Decadron), 20 MG PO DIRECTED Docusate Sodium (Docusate Sodium), 50 MG PO BID Duloxetine HCl (Cymbalta), 1 CAP PO DAILY Enoxaparin (Lovenox), 0.9 ML SQ Q12 Gabapentin (Neurontin), 600 MG PO TID Lorazepam (Ativan), 0.5 MG PO Q6 Metformin HCl (Metformin HCl ER), 1,000 MG PO BID Morphine Sulfate (Morphine Sulfate ER), 30 MG PO Q12 Polyethylene Glycol 3350 (Miralax), 17 GM PO DAILY Scheduled PRN Ondansetron Hcl (Zofran), 8 MG PO TID PRN for Nausea Oxycodone Ir (Roxicodone Ir), 5 MG PO Q6H PRN for Pain Prochlorperazine Maleate (Compazine), 10 MG PO Q6H PRN for Nausea Zolpidem Tartrate (Ambien), 10 MG PO HS PRN for Sleep Allergies Coded Allergies: No Known Allergies (Unverified , OTHER, 04/06/17) ' Physical Exam Vital Signs Date Time Temp Pulse Resp B/P (MAP) Pulse Ox O2 Delivery O2 Flow Rate FiO2 04/06/17 18:36 84 18 128/74 96 04/06/17 17:08 92 18 128/74 95 Room Air 04/06/17 16:14 92 18 128/77 95 Room Air 04/06/17 15:49 Room Air 04/06/17 15:13 92 18 121/78 94 Room Air 04/06/17 14:30 87 17 127/73 95 Room Air 04/06/17 12:27 106 17 123/77 94 Room Air 04/06/17 10:16 36.9 122 20 114/74 99 Room Air Physical Exam Vital signs reviewed. General: Chronically ill-appearing 57 year old female, in no significant distress. HEENT: No scleral icterus, PERRLA, neck supple. Atraumatic. Cardiovascular: Regular rate and rhythm, no extra sounds. Pulmonary: Clear to auscultation bilaterally, normal work of breathing. Abdomen: Soft, nontender, mildly distended, positive bowel sounds. Musculoskeletal: Atraumatic, no peripheral edema. Neurologic: Patient awake alert and oriented x 3. Cranial nerves 2 through 12 grossly intact. Significant weakness of the right lower extremity, unable to hold it up against gravity without assistance from her arms. Skin: Warm, dry, no rash Medical Decision & Procedures ER Provider Diagnostic Interpretation: Radiology results as stated below per my review and radiologist interpretation: CT SCAN OF THE BRAIN WITHOUT IV CONTRAST CLINICAL HISTORY: Head injury. Fall. COMPARISON STUDY: No priors. TECHNIQUE: Unenhanced axial CT scan of the brain is performed from the vertex to the skull base. Automated dose control exposure was utilized. A dose lowering technique was utilized adhering to the principles of ALARA. CT DOSE: 537.48 mGy.cm FINDINGS: Brain parenchyma: There is minimal periventricular microangiopathic disease. The brain parenchyma is otherwise normal in appearance. There is no hemorrhage, mass effect, or evidence of acute territorial ischemia by CT criteria. Lopez-white matter is preserved. No extra-axial fluid collection is seen. Ventricles, sulci, cisterns: Normal in configuration. Intracranial vasculature: There is mild atherosclerotic calcification of the cavernous carotid arteries. Calvarium: There is no depressed calvarial fracture. Sinuses and mastoids: The visualized paranasal sinuses are clear. There is a trace right mastoid effusion. The left mastoid air cells are well pneumatized. Orbits: The bony orbits are grossly intact. IMPRESSION: There is no hemorrhage, mass effect, or evidence of acute territorial ischemia by CT criteria. Electronically signed by: Jacek Ramirez M.D. 04/06/2017 12:05 PM Dictated Date/Time: 04/06/2017 12:03 PM MRI LUMBAR SPINE COMBINATION CLINICAL HISTORY: Right lower extremity weakness. Urinary carcinoma. Recent trauma. TECHNIQUE: Sagittal and axial T1, T2 and STIR images were obtained. COMPARISON STUDY: CT of the abdomen and pelvis scan dated 02/09/2017 OBSERVATIONS: Psych Assistant images reveal an enlarged spleen measuring 15.7 cm. There are probable hepatic masses. Metastatic disease is the diagnosis of exclusion. There is a large partially visualized right-sided retroperitoneal mass with contiguous involvement of the L5 and S1 vertebra. There is also marrow replacement involving the S2 vertebra suspicious for metastatic disease. The vertebral bodies and posterior elements appear intact. There is no abnormal bony signal present to suggest a marrow replacement process. L1-2: No disc protrusions or extrusions. No evidence of spinal canal or neural foraminal compromise. L2-3: There is a mild circumferential disc bulge. There is no significant spinal foraminal stenosis L3-4: No disc protrusions or extrusions. No evidence of spinal canal or neural foraminal compromise. L4-5: There is a partially visualized large retroperitoneal mass displacing the right psoas muscle. This measures in excess of 7.5 cm in diameter. There is direct involvement of the L5 vertebra. L5-S1: There is a large right-sided retroperitoneal mass with direct extension to the S1 vertebra. There is mild epidural extension of tumor. There is involvement of the right lateral neural foramen. There is partial encasement of the right S1 nerve root. The conus medullaris and cauda equina appear normal. IMPRESSION: 1. Large right-sided retroperitoneal mass with direct extension into the L5 and S1 vertebra. There is minimal epidural extension of tumor at the S1 level. There is involvement of the right L5/S1 neural foramen and partial encasement of the right S1 nerve root. The mass measures in excess of 7.5 cm and displaces the right psoas muscle 2. Possible hepatic metastatic disease 3. Enlarged spleen Electronically signed by: Danish Castellon M.D. 04/06/2017 2:16 PM Dictated Date/Time: 04/06/2017 2:06 PM Laboratory Results 04/06/17 15:05 Red Blood Count 3.11, Mean Corpuscular Volume 86.2, Mean Corpuscular Hemoglobin 27.7, Mean Corpuscular Hemoglobin Concent 32.1, Mean Platelet Volume 8.3, Neutrophils (%) (Auto) 75.3, Lymphocytes (%) (Auto) 17.2, Monocytes (%) (Auto) 6.6, Eosinophils (%) (Auto) 0.7, Basophils (%) (Auto) 0.1, Neutrophils # (Auto) 5.66, Lymphocytes # (Auto) 1.29, Monocytes # (Auto) 0.50, Eosinophils # (Auto) 0.05, Basophils # (Auto) 0.01 04/06/17 15:05 Test 04/06/17 15:05 White Blood Count 7.52 K/uL (4.8-10.8) Red Blood Count 3.11 M/uL (4.2-5.4) Hemoglobin 8.6 g/dL (12.0-16.0) Hematocrit 26.8 % (37-47) Mean Corpuscular Volume 86.2 fL (80-100) Mean Corpuscular Hemoglobin 27.7 pg (25-34) Mean Corpuscular Hemoglobin Concent 32.1 g/dl (32-36) Platelet Count 193 K/uL (130-400) Mean Platelet Volume 8.3 fL (7.4-10.4) Neutrophils (%) (Auto) 75.3 % Lymphocytes (%) (Auto) 17.2 % Monocytes (%) (Auto) 6.6 % Eosinophils (%) (Auto) 0.7 % Basophils (%) (Auto) 0.1 % Neutrophils # (Auto) 5.66 K/uL (1.4-6.5) Lymphocytes # (Auto) 1.29 K/uL (1.2-3.4) Monocytes # (Auto) 0.50 K/uL (0.11-0.59) Eosinophils # (Auto) 0.05 K/uL (0-0.5) Basophils # (Auto) 0.01 K/uL (0-0.2) RDW Standard Deviation 50.8 fL (36.4-46.3) RDW Coefficient of Variation 16.0 % (11.5-14.5) Immature Granulocyte % (Auto) 0.1 % Immature Granulocyte # (Auto) 0.01 K/uL (0.00-0.02) Microcytosis PRESENT Anion Gap 8.0 mmol/L (3-11) Est Creatinine Clear Calc Drug Dose 88.1 ml/min Estimated GFR () 111.2 Estimated GFR (Non- 96.0 BUN/Creatinine Ratio 16.0 (10-20) Calcium Level 10.5 mg/dl (8.5-10.1) Magnesium Level 1.8 mg/dl (1.8-2.4) Total Bilirubin 0.9 mg/dl (0.2-1) Direct Bilirubin 0.4 mg/dl (0-0.2) Aspartate Amino Transf (AST/SGOT) 51 U/L (15-37) Alanine Aminotransferase (ALT/SGPT) 11 U/L (12-78) Alkaline Phosphatase 123 U/L (45-117) Total Protein 7.3 gm/dl (6.4-8.2) Albumin 2.9 gm/dl (3.4-5.0) Laboratory results per my review. Medications Administered Medications (Trade) Dose Ordered Sig/Alivia Route Start Time Stop Time Status Last Admin Dose Admin Lorazepam (Ativan Tab) 2 mg NOW STAT SL 04/06/17 12:50 04/06/17 12:51 DC 04/06/17 13:15 2 MG Oxycodone HCl (Roxicodone Immediate Rel Tab) 5 mg NOW STAT PO 04/06/17 12:50 04/06/17 12:51 DC 04/06/17 13:14 5 MG Sodium Chloride 1,000 ml @ 125 mls/hr Q8H STAT IV 04/06/17 14:45 04/06/17 20:00 DC 04/06/17 15:15 125 MLS/HR Heparin Sodium (Porcine) (Heparin 100 Unit/ml 5ml Flush) 5 ml STK-MED ONCE .ROUTE 04/06/17 18:28 04/06/17 18:29 DC 04/06/17 18:28 5 ML ED Course 1128: Past medical records reviewed. The patient was evaluated in room A11A. A complete history and physical examination was performed. 1229: I reevaluated the patient. We discussed her treatment plan and using joint decision-making have determined to have an MRI scan. 1250: Oxycodone HCl 5 mg PO, Ativan 2 mg SL 1430: I reassessed the patient at this time. I discussed the results and treatment plan with the patient. I answered all pertaining questions that she had. She expressed understanding and verbalized agreement. 1443: I spoke with Elin Buck PA-C. We discussed the patients case. The patient will be evaluated by the [facility] for further management. 1445: NSS 1000 ml @ 125 mls/hr IV Medical Decision Differential diagnoses includes intracranial hemorrhage, intracranial mass, lumbar spinal mets, disc herniation, compression fracture, dehydration, infectious etiology. This patient was evaluated and appeared to be in no significant distress. Patient is chronically ill-appearing with weakness appreciated to the right lower extremity. Given the patient's comp. Medical history, I feel an MRI of the lumbar spine is warranted. She has had frequent falls and this is now affecting her quality of life. MRI reveals "large right-sided retroperitoneal mass with direct extension into the L5 and S1 vertebra. There is minimal epidural extension of tumor at the S1 level. There is involvement of the right L5/S1 neural foramen and partial encasement of the right S1 nerve root. The mass measures in excess of 7.5 cm and displaces the right psoas muscle." There is also possible hepatic metastasis. The hospitalist service was consulted. Dr. Johnson evaluated the patient. Current discussion for a possible transfer is underway secondary to the need for possible decompression. Dr. Reddy was made aware of the case at the change of shift, please see his note for final disposition. Consults Time Called: 1441 Consulting Physician: Elin Buck PA-C Returned Call: [phone] I spoke with Elin Buck PA-C. We discussed the patients case. The patient will be evaluated by the [facility]ist Group for further management. Impression Primary Impression: Retroperitoneal mass Additional Impressions: Frequent falls Weakness of right lower extremity Scribe Attestation The scribe's documentation has been prepared under my direction and personally reviewed by me in its entirety. I confirm that the note above accurately reflects all work, treatment, procedures, and medical decision making performed by me. Departure Information Dispostion Being Evaluated By Hospitalist Referrals Romario Gaspar M.D. (PCP) Patient Instructions My [facility] Problem Qualifiers
[2017-04-06] MEDS ORDERED: GADAVIST IV PRN (14:15)
--- NOTE | 2017-04-06 14:17 | DIAGNOSTIC IMAGING REPORT ---
MRI LUMBAR SPINE COMBINATION CLINICAL HISTORY: Right lower extremity weakness. Urinary carcinoma. Recent trauma. TECHNIQUE: Sagittal and axial T1, T2 and STIR images were obtained. COMPARISON STUDY: CT of the abdomen and pelvis scan dated 02/09/2017 OBSERVATIONS: [employer] Estimator images reveal an enlarged spleen measuring 15.7 cm. There are probable hepatic masses. Metastatic disease is the diagnosis of exclusion. There is a large partially visualized right-sided retroperitoneal mass with contiguous involvement of the L5 and S1 vertebra. There is also marrow replacement involving the S2 vertebra suspicious for metastatic disease. The vertebral bodies and posterior elements appear intact. There is no abnormal bony signal present to suggest a marrow replacement process. L1-2: No disc protrusions or extrusions. No evidence of spinal canal or neural foraminal compromise. L2-3: There is a mild circumferential disc bulge. There is no significant spinal foraminal stenosis L3-4: No disc protrusions or extrusions. No evidence of spinal canal or neural foraminal compromise. L4-5: There is a partially visualized large retroperitoneal mass displacing the right psoas muscle. This measures in excess of 7.5 cm in diameter. There is direct involvement of the L5 vertebra. L5-S1: There is a large right-sided retroperitoneal mass with direct extension to the S1 vertebra. There is mild epidural extension of tumor. There is involvement of the right lateral neural foramen. There is partial encasement of the right S1 nerve root. The conus medullaris and cauda equina appear normal. IMPRESSION: 1. Large right-sided retroperitoneal mass with direct extension into the L5 and S1 vertebra. There is minimal epidural extension of tumor at the S1 level. There is involvement of the right L5/S1 neural foramen and partial encasement of the right S1 nerve root. The mass measures in excess of 7.5 cm and displaces the right psoas muscle 2. Possible hepatic metastatic disease 3. Enlarged spleen Electronically signed by: Danish Castellon M.D. 04/06/2017 2:16 PM Dictated Date/Time: 04/06/2017 2:06 PM
[2017-04-06] MEDS ORDERED: SODIUM CHLORIDE 0.9% 1000ML 1,000 ML IV STA (14:45)
[2017-04-06 15:31] LABS: BASO % 0.1 %; BASO ABS # 0.01 K/uL (0-0.2); EOS % 0.7 %; HEMATOCRIT 26.8 % (37-47); IG% 0.1 %; LYMPH % 17.2 %; LYMPH ABS # 1.29 K/uL (1.2-3.4); MEAN CELL VOLUME 86.2 fL (80-100); MEAN CORPUSCULAR HEMOGLOBIN 27.7 pg (25-34); MEAN CORPUSCULAR HGB CONC 32.1 g/dl (32-36); MEAN PLATELET VOLUME 8.3 fL (7.4-10.4); MONO % 6.6 %; NEUT % 75.3 %; PLATELET COUNT 193 K/uL (130-400); RED BLOOD COUNT 3.11 M/uL (4.2-5.4); WHITE BLOOD COUNT 7.52 K/uL (4.8-10.8)
[2017-04-06 15:48] LABS: CALCIUM 10.5 mg/dl (8.5-10.1); CREATININE 0.69 mg/dl (0.60-1.20); MAGNESIUM 1.8 mg/dl (1.8-2.4); POTASSIUM 4.1 mmol/L (3.5-5.1)
[2017-04-06 15:49] VITALS: Ht 165.1 cm; Wt 71.5 kg
[2017-04-06 15:55] LABS: COMPLETE YES; MICROCYTOSIS PRESENT
[2017-04-06] MEDS ORDERED: DEXAMETHASONE INJ 10 MG in SYRINGE 0 ML IV SCH (17:00)
--- NOTE | 2017-04-06 17:28 | EMERGENCY ROOM VISIT NOTE ---
ED Visit Note First contact with patient: 17:26 This patient was primarily seen by Dr. Mendez and she consulted with Dr. Johnson for admission. After Dr. Johnson evaluated the patient she coordinated transfer to [facility]. I was asked to assist with the transfer of the patient to [facility] in [place] by Dr. Johnson, for further evaluation and management. The patient feels comfortable with transfer. Family will be transporting the patient. The patient is hemodynamically stable. The patient was accepted by Dr. Heaton per Dr. Johnson. The patient's Mediport was flushed with heparin and carefully protected for transport so that she does not have to have a repeat stick. The patient was reassessed prior to discharge and transfer and felt comfortable with the plan. She did take her evening medications. I gave my usual and customary discussion regarding this issue.
[2017-04-06 18:36] VITALS: BP 128/74; PULSE 84; O2SAT 96
--- NOTE | 2017-04-06 23:00 | Medical Consult ---
Consultation Date of Consultation: Apr 06, 2017. Attending Physician: Katina Johnson DO Reason for Consultation: ER request to admit History of Present Illness 57 yo F with metastatic uterine cancer s/p JESÚS/BSO in 2008 when she was originally diagnosed presents tonight with weakness, decreased sensation and frequent falls 2/2 retroperitoneal mass that is metastatic cancer evaluated in Aug 2016 and subsequently treated for the last 6 months with chemotherapy. She has currently received 6 cycles of paclitaxel and carboplatin under the care of Dr. Johan Dickerson. She was turned away from chemotherapy after a second fall at home earlier today. The patient has had oxycodone and Ativan in order to cntrol anxiety with getting in the MRI machine and appears loopy and overmedicated. She is unable to give a clear history. Her parents are present and help to fill in the gaps. She fell again last week after her dog ran into her and was seen in the ER at that time for a pelvic strain after doing a split. She then had another mechanical fall on the stairs of her home today when her R leg "just gave out", witnessed by her daughter. The case was discussed with Dr. Diaz from Ortho spine, who considered that this may be a tumor pushing on the lumbar plexus area resulting in symptoms. Images reviewed only, formal consult and evaluation not performed. Hematology (Dr. Lopez) was also questioned regarding the possible need for transfer for assessment by neurosurgery. Both specialists agreed that transfer would be in her best interest, and she was accepted by the obstetrics gynecology physician Onc service in [place] for further workup and treatment. 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 Surgical Problems: (1) H/O blepharoplasty Status: Chronic (2) History of ureter stent Status: Chronic (3) S/P appendectomy Status: Chronic (4) S/P section Status: Chronic (5) S/P cholecystectomy Status: Chronic (6) S/P JESÚS-BSO Status: Chronic Family History Cancer Gallbladder disease Heart disease MOTHER Kidney stones Social History Smoking Status: Former Smoker Smokeless Tobacco Use: No Alcohol Use: socially Drug Use: none Marital Status: Housing Status: lives with family 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) Allergies Coded Allergies: No Known Allergies (Unverified , OTHER, 04/06/17) ' Home Medications Active Morphine Sulfate ER (Morphine Sulfate) 15 Mg Tabcr 30 Mg PO Q12 Reported Cymbalta (Duloxetine HCl) 30 Mg Cap 1 Cap PO DAILY 30 Days Neurontin (Gabapentin) 300 Mg Cap 600 Mg PO TID Roxicodone Ir (Oxycodone HCl) 5 Mg Tab 5 Mg PO Q6H PRN Ambien (Zolpidem Tartrate) 10 Mg Tab 10 Mg PO HS PRN Lovenox (Enoxaparin) 100 Mg/Ml Inj 0.9 Ml SQ Q12 Zofran (Ondansetron HCl) 8 Mg Tab 8 Mg PO TID PRN Compazine (Prochlorperazine Maleate) 10 Mg Tab 10 Mg PO Q6H PRN Decadron (Dexamethasone) 4 Mg Tab 20 Mg PO DIRECTED TAKE 5 TABLETS WITH FOOD ON THE NIGHT BEFORE CHEMO AND ON THE MORNING OF THE DAY OF CHEMO AND REPEAT WITH EACH CYCLE. Docusate Sodium 100 Mg Tab 50 Mg PO BID Miralax (Polyethylene Glycol 3350) 1 Pow Pow 17 Gm PO DAILY Metformin HCl ER (Metformin HCl) 1,000 Mg Tab 1,000 Mg PO BID Ativan (Lorazepam) 0.5 Mg Tab 0.5 Mg PO Q6 Current Inpatient Medications In the ER she received: Dexamethasone 10mg IV NS @ 125 mls/hr Ativan 2mg SL Roxicodone IR 5mg PO Review of Systems Pt was unable to provide an accurate ROS as she was significantly confused from medications. Physical Exam Date Time Temp Pulse Resp B/P (MAP) Pulse Ox O2 Delivery O2 Flow Rate FiO2 04/06/17 18:36 84 18 128/74 96 04/06/17 17:08 92 18 128/74 95 Room Air 04/06/17 16:14 92 18 128/77 95 Room Air 04/06/17 15:49 Room Air 04/06/17 15:13 92 18 121/78 94 Room Air 04/06/17 14:30 87 17 127/73 95 Room Air 04/06/17 12:27 106 17 123/77 94 Room Air 04/06/17 10:16 36.9 122 20 114/74 99 Room Air General Appearance: WD/WN, no apparent distress Head: normocephalic, atraumatic Eyes: normal inspection, PERRL, EOMI, sclerae normal ENT: hearing grossly normal Neck: supple, trachea midline Respiratory/Chest: lungs clear, normal breath sounds, no respiratory distress, no accessory muscle use Cardiovascular: regular rate, rhythm, no edema, + systolic murmur (3/6 MAYA at LUSB) Abdomen/GI: normal bowel sounds, non tender, soft Back: + pertinent finding (nephrostomy catheter in place to lower left back - no signs of redness or irritation) Extremities/Musculoskelatal: + pertinent finding (3/5 weakness in R knee flexion/extension and dorsiflexion. R Hip flexion 2-3/5. Planarflexion 5/5 and LLE 5/5 throughout) Neurologic/Psych: + motor weakness, + sensory deficit (Decreased sensation on RLE compared with LLE), + pertinent finding (not lucid) Skin: normal color Laboratory Results 04/06/17 15:05 Red Blood Count 3.11, Mean Corpuscular Volume 86.2, Mean Corpuscular Hemoglobin 27.7, Mean Corpuscular Hemoglobin Concent 32.1, Mean Platelet Volume 8.3, Neutrophils (%) (Auto) 75.3, Lymphocytes (%) (Auto) 17.2, Monocytes (%) (Auto) 6.6, Eosinophils (%) (Auto) 0.7, Basophils (%) (Auto) 0.1, Neutrophils # (Auto) 5.66, Lymphocytes # (Auto) 1.29, Monocytes # (Auto) 0.50, Eosinophils # (Auto) 0.05, Basophils # (Auto) 0.01 04/06/17 15:05 Test 04/06/17 15:05 White Blood Count 7.52 K/uL (4.8-10.8) Red Blood Count 3.11 M/uL (4.2-5.4) Hemoglobin 8.6 g/dL (12.0-16.0) Hematocrit 26.8 % (37-47) Mean Corpuscular Volume 86.2 fL (80-100) Mean Corpuscular Hemoglobin 27.7 pg (25-34) Mean Corpuscular Hemoglobin Concent 32.1 g/dl (32-36) Platelet Count 193 K/uL (130-400) Mean Platelet Volume 8.3 fL (7.4-10.4) Neutrophils (%) (Auto) 75.3 % Lymphocytes (%) (Auto) 17.2 % Monocytes (%) (Auto) 6.6 % Eosinophils (%) (Auto) 0.7 % Basophils (%) (Auto) 0.1 % Neutrophils # (Auto) 5.66 K/uL (1.4-6.5) Lymphocytes # (Auto) 1.29 K/uL (1.2-3.4) Monocytes # (Auto) 0.50 K/uL (0.11-0.59) Eosinophils # (Auto) 0.05 K/uL (0-0.5) Basophils # (Auto) 0.01 K/uL (0-0.2) RDW Standard Deviation 50.8 fL (36.4-46.3) RDW Coefficient of Variation 16.0 % (11.5-14.5) Immature Granulocyte % (Auto) 0.1 % Immature Granulocyte # (Auto) 0.01 K/uL (0.00-0.02) Microcytosis PRESENT Anion Gap 8.0 mmol/L (3-11) Est Creatinine Clear Calc Drug Dose 88.1 ml/min Estimated GFR () 111.2 Estimated GFR (Non- 96.0 BUN/Creatinine Ratio 16.0 (10-20) Calcium Level 10.5 mg/dl (8.5-10.1) Magnesium Level 1.8 mg/dl (1.8-2.4) Total Bilirubin 0.9 mg/dl (0.2-1) Direct Bilirubin 0.4 mg/dl (0-0.2) Aspartate Amino Transf (AST/SGOT) 51 U/L (15-37) Alanine Aminotransferase (ALT/SGPT) 11 U/L (12-78) Alkaline Phosphatase 123 U/L (45-117) Total Protein 7.3 gm/dl (6.4-8.2) Albumin 2.9 gm/dl (3.4-5.0) Last 24 Hours Test 8/4/17 15:05 White Blood Count 7.52 K/uL Red Blood Count 3.11 M/uL Hemoglobin 8.6 g/dL Hematocrit 26.8 % Mean Corpuscular Volume 86.2 fL Mean Corpuscular Hemoglobin 27.7 pg Mean Corpuscular Hemoglobin Concent 32.1 g/dl Platelet Count 193 K/uL Mean Platelet Volume 8.3 fL Neutrophils (%) (Auto) 75.3 % Lymphocytes (%) (Auto) 17.2 % Monocytes (%) (Auto) 6.6 % Eosinophils (%) (Auto) 0.7 % Basophils (%) (Auto) 0.1 % Neutrophils # (Auto) 5.66 K/uL Lymphocytes # (Auto) 1.29 K/uL Monocytes # (Auto) 0.50 K/uL Eosinophils # (Auto) 0.05 K/uL Basophils # (Auto) 0.01 K/uL RDW Standard Deviation 50.8 fL RDW Coefficient of Variation 16.0 % Immature Granulocyte % (Auto) 0.1 % Immature Granulocyte # (Auto) 0.01 K/uL Microcytosis PRESENT Sodium Level 131 mmol/L Potassium Level 4.1 mmol/L Chloride Level 95 mmol/L Carbon Dioxide Level 28 mmol/L Anion Gap 8.0 mmol/L Blood Urea Nitrogen 11 mg/dl Creatinine 0.69 mg/dl Est Creatinine Clear Calc Drug Dose 88.1 ml/min Estimated GFR () 111.2 Estimated GFR (Non- 96.0 BUN/Creatinine Ratio 16.0 Random Glucose 100 mg/dl Calcium Level 10.5 mg/dl Magnesium Level 1.8 mg/dl Total Bilirubin 0.9 mg/dl Direct Bilirubin 0.4 mg/dl Aspartate Amino Transf (AST/SGOT) 51 U/L Alanine Aminotransferase (ALT/SGPT) 11 U/L Alkaline Phosphatase 123 U/L Total Protein 7.3 gm/dl Albumin 2.9 gm/dl Assessment & Plan 57 yo F presents with worsening RLE sensation and muscle weakness leading to multiple falls at home 1. Uterine cancer with known retroperitoneal mass on R lower spine, confirmed to be metastatic disease and treated with chemotherapy for the past 6 months with some improvement in size. However, still is 7.5cm and poss pushing onto lubar plexus area. Needs neurosurgical evaluation so was transferred to [facility] for further evaluation on the [facility] service under Dr. Heaton. Cont pain control as needed. Dexamethasone 10mg x one dose given prior to departure. 2. Multiple falls at home-2/2 above Would defer care plan of chronic comorbidities including DVT, GERD, DMII and HTN to receiving facility. The patient was hemodynamically stable at the time of transfer and will be taken by her family to [place] by POV. After acceptance of transfer, deferred logistics to ER attending, Dr. Mas. Katina Johnson DO [facility] Additional Copies To Romario Gaspar M.D.; Johan Dickerson M.D.
[2017-04-13] MEDS ORDERED: ENOX80IN SQ (10:53)
[2017-04-13] MEDS ORDERED: ACET-1311 PO (10:53)
[2017-04-13] MEDS ORDERED: FAMO20TA11 PO (10:53)
[2017-04-13] MEDS ORDERED: GABA-113 PO (10:53)
[2017-04-13] MEDS ORDERED: CYCL10TA6 PO (10:53)
[2017-04-13] MEDS ORDERED: SENN-61 PO (10:53)
[2017-04-13] MEDS ORDERED: PRLSR20 PO (10:53)
[2017-04-13] MEDS ORDERED: OXYC20TA50 PO (10:53)
[2017-04-23] MEDS ORDERED: FNTTP50 TD (14:20)
== END 2017-04-06 18:37 | disposition short-term general hospital (02) ==
LOC: C.EDB 10:04 → C.EDA 18:37
DX: M62.81 Muscle weakness (generalized) (principal); K66.9 Disorder of peritoneum, unspecified; I10 Essential (primary) hypertension; E11.9 Type 2 diabetes mellitus without complications; K58.9 Irritable bowel syndrome, unspecified; K21.9 Gastro-esophageal reflux disease without esophagitis; D64.9 Anemia, unspecified; Z91.81 History of falling; Z80.49 Family history of malignant neoplasm of other genital organs; Z86.718 Personal history of other venous thrombosis and embolism; Z90.49 Acquired absence of other specified parts of digestive tract; Z90.710 Acquired absence of both cervix and uterus; Z98.890 Other specified postprocedural states; Z79.899 Other long term (current) drug therapy; Z87.891 Personal history of nicotine dependence; Z80.9 Family history of malignant neoplasm, unspecified; Z83.79 Family history of other diseases of the digestive system; Z82.49 Family history of ischemic heart disease and other diseases of the circulatory system; Z84.1 Family history of disorders of kidney and ureter

== ENCOUNTER 2017-05-15 21:16 | Emergency (ER) | payer BC ==
[~2017-05-15] VITALS: Ht 165.1 cm; Wt 69.1 kg
[~2017-05-15 21:16] MED LIST changes: +ACET-1311 PO; +CYCL10TA6 PO; -DXM/4 PO; -ENOX100I SQ; +ENOX80IN SQ; +FAMO20TA11 PO; +FNTTP50 TD; -MRPSR15 PO; -OXYC1TAB3 PO; +OXYC20TA50 PO; +PRLSR20 PO; +SENN-61 PO
[2017-05-15] MEDS ORDERED: SODIUM CHLORIDE 0.9% 1000ML 1,000 ML IV STA (21:38)
[2017-05-15] MEDS ORDERED: VANCOMYCIN INJ 1,000 MG in SODIUM CHLORIDE 0.9% 250ML 250 ML IV STA (21:38)
[2017-05-15] MEDS ORDERED: LEVAQUIN 750MG / 150ML D5W IV STA (21:38)
[2017-05-15] MEDS ORDERED: PIPERACILLIN/TAZOBACTAM 4.5 GM/100ML D5W IV STA (21:38)
[2017-05-15] MEDS ORDERED: HALOPERIDOL 5 MG TAB PO STA (21:42)
[2017-05-15] MEDS ORDERED: SODIUM CHLORIDE 0.9% 150ML 150 ML IV STA ×2 (21:45→22:18)
[2017-05-15] MEDS ORDERED: SODIUM CHLORIDE 0.9% 500ML 500 ML IV STA ×2 (21:45→22:31)
[2017-05-15] MEDS ORDERED: ONDANSETRON INJ 2 MG/ML 2 ML VIAL IV STA (21:50)
[2017-05-15] MEDS ORDERED: HYDROmorphone INJ 0.5 MG/0.5 ML SYR IV STA ×2 (21:50→22:12)
[2017-05-15] MEDS ORDERED: NOREPINEPHRINE BIT INJ 8 MG in DEXTROSE 5% 500ML 500 ML IV STA (21:50)
[2017-05-15] MEDS ORDERED: ACETAMINOPHEN IV 100 ML IV STA (21:53)
[2017-05-15 22:07] LABS: HEMATOCRIT 26.9 % (37-47); MEAN CELL VOLUME 85.7 fL (80-100); MEAN CORPUSCULAR HGB CONC 32.7 g/dl (32-36); RED BLOOD COUNT 3.14 M/uL (4.2-5.4); WHITE BLOOD COUNT 3.16 K/uL (4.8-10.8)
[2017-05-15 22:10] LABS: ISTAT CREATININE 1.1 mg/dl (0.6-1.3); ISTAT HEMOGLOBIN 8.2 g/dl (12.0-16.0); ISTAT IONIZED CALCIUM 1.18 mmol/l (1.12-1.32)
[2017-05-15] MEDS ORDERED: OPTIRAY 320 IV PRN (22:15)
[2017-05-15] MEDS ORDERED: DiphenhydrAMINE HCL 50 MG/ML VIAL IV STA (22:24)
[2017-05-15 22:28] LABS: ALT/SGPT 160 U/L (12-78); BLOOD UREA NITROGEN 30 mg/dl (7-18); BUN/CREATININE RATIO 30.2 (10-20); CALCIUM 8.4 mg/dl (8.5-10.1); CARBON DIOXIDE 24 mmol/L (21-32); CHLORIDE 101 mmol/L (98-107); CREATININE 0.98 mg/dl (0.60-1.20); GLUCOSE 115 mg/dl (70-99); POTASSIUM 4.3 mmol/L (3.5-5.1); SODIUM 132 mmol/L (136-145)
[2017-05-15 22:30] VITALS: Ht 165.1 cm; Wt 69.1 kg
[2017-05-15 22:30] LABS: INR 1.2 (0.9-1.1); PROTHROMBIN TIME (PATIENT) 13.3 SECONDS (9.0-12.0)
[2017-05-15 22:33] LABS: ALKALINE PHOSPHATASE 186 U/L (45-117); AST/SGOT 283 U/L (15-37); CKMB/CK RATIO 0.2 (0-3.0)
[2017-05-15] MEDS ORDERED: GLIP5TAB3 PO (22:38)
[2017-05-15] MEDS ORDERED: DEXA1TAB16 PO (22:38)
--- NOTE | 2017-05-15 22:45 | DIAGNOSTIC IMAGING REPORT ---
CHEST ONE VIEW PORTABLE CLINICAL HISTORY: Sepsis. Uterine cancer. COMPARISON STUDY: Chest CT March 22, 2017. FINDINGS: A left subclavian [id number] is in place. There is no pneumothorax or pleural effusion. Mild left basilar opacity favors atelectasis. There is no evidence of pulmonary edema. No consolidation is identified to suggest pneumonia. Patient is rotated. IMPRESSION: 1. No acute cardiopulmonary findings. 2. Left basilar opacity which favors atelectasis. Electronically signed by: Mirza Wright M.D. 05/15/2017 10:44 PM Dictated Date/Time: 05/15/2017 10:40 PM
--- NOTE | 2017-05-15 22:51 | DIAGNOSTIC IMAGING REPORT ---
CT OF THE HEAD WITHOUT CONTRAST CLINICAL HISTORY: Altered mental status. Uterine cancer. COMPARISON STUDY: Head CT April 06, 2017. TECHNIQUE: Helical axial images of the head were obtained without IV contrast. Automated exposure control was utilized for the study. A dose lowering technique was utilized adhering to the principles of ALARA. FINDINGS: There has been interval development of a 1.4 cm round hyperdense focus with mild associated vasogenic edema within the left cerebellar hemisphere since head CT of April 06, 2017. There is a subtle 1.3 cm hyperdense focus within the right occipital lobe shown on image 15. Ventricular system is stable. Basilar cisterns are patent. There are no extra-axial collections. No significant calvarial abnormalities are present. There is trace fluid within the right mastoid air cells. IMPRESSION: 1. Interval development of a 1.4 cm hyperdense focus within the left cerebellar hemisphere with mild vasogenic edema since head CT of April 06, 2017. A hemorrhagic metastasis is favored. A small hematoma could appear similar. 2. Subtle 1.3 cm hyperdense focus within the right occipital lobe which favors an additional metastasis although minimal hemorrhage could appear similar. A short-term follow-up head CT or MRI might be considered. Electronically signed by: Mirza Wright M.D. 05/15/2017 10:49 PM Dictated Date/Time: 05/15/2017 10:30 PM
[2017-05-15 22:53] LABS: PLATELET COUNT 67 K/uL (130-400)
[2017-05-15] MEDS ORDERED: DEXAMETHASONE SOD INJ 10 MG/ML VIAL IV STA (22:53)
[2017-05-15 22:54] LABS: COMPLETE YES; IG% 0.3 %; LYMPH % 11.1 %; LYMPH ABS # 0.35 K/uL (1.2-3.4); MEAN PLATELET VOLUME 8.4 fL (7.4-10.4); MONO % 5.7 %; NEUT % 82.9 %; PLT ESTIMATE DECREASED; TOXIC GRANULATION 1+
[2017-05-15] MEDS ORDERED: DEXAMETHASONE SOD INJ 10 MG/ML VIAL ONE (22:54)
--- NOTE | 2017-05-15 23:41 | DIAGNOSTIC IMAGING REPORT ---
CT ANGIOGRAPHY OF THE CHEST, PULMONARY EMBOLUS PROTOCOL CLINICAL HISTORY: Hypotension. Uterine cancer. COMPARISON STUDY: Chest CT March 22, 2017. TECHNIQUE: Following IV administration of 116 mL of Optiray-320, helical axial images of the chest were obtained utilizing the pulmonary embolus protocol. Maximal intensity projections and sagittal and coronal reformats were viewed on an independent 3D workstation. IV contrast was administered without complication. A dose lowering technique was utilized adhering to the principles of ALARA. CT DOSE: 1356.43 mGy.cm FINDINGS: No pulmonary emboli are identified although the segmental and subsegmental vessels are suboptimally assessed due to respiratory motion. There is no evidence of thoracic aortic dissection. The heart is mildly enlarged. A subcarinal lymph node has moderately increased in size since chest CT of March 22, 2017. This node measures 2.6 cm in short axis diameter. It previously measured 2 cm. Bilateral lower lobe opacities favor atelectasis. Innumerable hepatic metastases have markedly progressed since exam of March 22, 2017. IMPRESSION: 1. No pulmonary emboli identified although segmental and subsegmental pulmonary arteries suboptimally assessed due to respiratory motion. 2. Innumerable hepatic metastases with marked progression since CT of March 22, 2017. 3. Moderate increase in size of a subcarinal lymph nodes which suggests walter spread of disease. Electronically signed by: Mirza Wright M.D. 05/15/2017 11:40 PM Dictated Date/Time: 05/15/2017 11:25 PM
[2017-05-15 23:50] VITALS: O2SAT 100
[2017-05-15 23:57] VITALS: BP 72/39; PULSE 118; TEMP 36.9; O2SAT 100
--- NOTE | 2017-05-16 00:01 | DIAGNOSTIC IMAGING REPORT ---
CT OF THE ABDOMEN AND PELVIS WITH CONTRAST CLINICAL HISTORY: Hypotension. Uterine cancer. COMPARISON STUDY: CT of the abdomen and pelvis March 22, 2017 and February 09, 2017. TECHNIQUE: Following IV administration of 116 mL of Optiray-320, axial images of the abdomen and pelvis were obtained from the lung bases to the proximal femurs. Images were reviewed in the axial, sagittal, and coronal planes. IV contrast was administered without complication. A dose lowering technique was utilized adhering to the principles of ALARA. FINDINGS: Innumerable hepatic metastases have markedly progressed since CT of March 22, 2017. Index segment 6/7 lesion measures 4.2 cm. Index segment 5 lesion measures 3.2 cm. A right-sided percutaneous nephrostomy tube is in place. There is no right hydronephrosis. Moderate right renal atrophy is noted. Multiple enlarged upper abdominal lymph nodes have mildly increased in size since CT of March 22, 2017. Index aortocaval lymph node measures 2 cm in short axis diameter. The gallbladder is surgically absent. There is no pancreatic ductal dilatation. There is no evidence for a bowel obstruction. Mild wall thickening of the sigmoid colon is noted. There is no pneumatosis, free air or portal venous gas. Note is again made of a large right pelvic wall/retroperitoneal mass with associated bony destruction of the right aspect of the sacrum and right iliac bone. This mass measures approximately 11.9 x 10 cm. There has been suspected slight decrease in size since exam of March 22, 2017. Interval development of a pathologic fracture of S1 is noted. This involves multiple right-sided neural foramen. There may be a pathologic fracture of the right iliac bone as well. Heterogeneity of additional skeletal structures may reflect diffuse skeletal metastases. As before, this mass occludes the right common iliac vein. This is unchanged. Suspected injection sites are noted within the subcutaneous tissues. IMPRESSION: 1. Innumerable hepatic metastases with marked progression since exam of March 22, 2017. 2. Moderate increase in size of multiple upper abdominal pathologic lymph nodes, including aortocaval lymph nodes with resultant significant narrowing of the IVC. 3. Large right pelvic sidewall/retroperitoneal mass with associated erosion of the right iliac bone and right aspect of the sacrum with associated S1 pathologic fracture and possible pathologic fracture of the right iliac bone. Overall, this mass has slightly decreased in size since March 22, 2017. 4. No bowel obstruction. Mild sigmoid colon wall thickening is likely due to underdistention although a nonspecific colitis could appear similar. 5. Small lytic lesions within skeletal structures which suggest skeletal metastases. Electronically signed by: Mirza Wright M.D. 05/16/2017 12:00 AM Dictated Date/Time: 05/15/2017 11:40 PM
[2017-05-16 00:11] VITALS: BP 73/48; PULSE 114; TEMP 37.1; O2SAT 100
--- NOTE | 2017-05-16 00:39 | EMERGENCY ROOM VISIT NOTE ---
History Report prepared by Kina: Jes Herndon Under the Supervision of: Dr. Luis Alfredo Ram M.D. First contact with patient: 21:28 Chief Complaint: ALTERED MENTAL STATUS Stated Complaint: ALETERED MENTAL STATUS, FEVER History of Present Illness The patient is a 57 year old female who presents to the Emergency Room with complaints of altered mental status. The patient has a history of endometrial cancer with metastases. She was recently transferred to [place] within the past month and was on the gynecology service. Family reports that the patient has been altered throughout the day today and refusing an ambulance. The patient is extremely agitated upon arrival to the emergency department. She is not making sense does not realize where she is. Most of the history supplied via the family. The patient is on Lovenox however missed her dose today. Review of Systems See HPI for pertinent positives & negatives. A total of 10 systems reviewed and were otherwise negative. 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 (13) Numbness of left hand Surgical Problems: (1) H/O blepharoplasty (2) History of ureter stent (3) S/P appendectomy (4) S/P section (5) S/P cholecystectomy (6) S/P [id number] Family History Cancer Gallbladder disease Heart disease MOTHER Kidney stones Social History Smoking Status: Never Smoker Alcohol Use: occasionally Drug Use: none Marital Status: Housing Status: lives with family Occupation Status: employed Current/Historical Medications Scheduled Dexamethasone (Dexamethasone), 4 MG PO DIRECTED Docusate Sodium (Docusate Sodium), 100 MG PO BID Duloxetine HCl (Cymbalta), 1 CAP PO DAILY Enoxaparin (Lovenox), 80 MG SQ Q12H Fentanyl (Duragesic), 50 MCG TD [id number] Gabapentin (Neurontin), 600 MG PO TID Gabapentin (Neurontin), 300 MG PO HS Glipizide (Glucotrol), 5 MG PO DAILY Lorazepam (Ativan), 0.5 MG PO Q6 Metformin HCl (Metformin HCl ER), 1,000 MG PO BID Omeprazole (Prilosec), 20 MG PO DAILY Polyethylene Glycol 3350 (Miralax), 17 GM PO DAILY Scheduled PRN Acetaminophen (Tylenol), 650 MG PO Q4H PRN for Pain Ondansetron Hcl (Zofran), 8 MG PO TID PRN for Nausea Oxycodone Hcl (Oxycontin), 10 MG PO Q3H PRN for Pain Prochlorperazine Maleate (Compazine), 10 MG PO Q6H PRN for Nausea Senna (Senokot), 1 TAB PO DAILY PRN for Constipation Zolpidem Tartrate (Ambien), 10 MG PO HS PRN for Sleep Allergies Coded Allergies: No Known Allergies (Unverified , OTHER, 04/06/17) ' Physical Exam Vital Signs Date Time Temp Pulse Resp B/P (MAP) Pulse Ox O2 Delivery O2 Flow Rate FiO2 05/16/17 00:11 37.1 114 20 73/48 100 4.0 05/15/17 23:57 36.9 118 20 72/39 100 4.0 05/15/17 23:02 109 73/44 100 Nasal Cannula 4.0 05/15/17 22:53 37.5 05/15/17 22:52 114 74/50 100 05/15/17 22:42 115 100 05/15/17 22:41 114 77/40 100 Nasal Cannula 4.0 05/15/17 22:36 116 100 05/15/17 22:31 118 05/15/17 22:31 Nasal Cannula 4.0 05/15/17 22:30 85/52 92/47 05/15/17 22:06 133 18 63/46 99 05/15/17 22:01 140 22 97 05/15/17 22:00 63/44 05/15/17 21:56 146 21 95 05/15/17 21:51 140 21 96 05/15/17 21:46 146 22 05/15/17 21:43 38.4 150 15 58/37 92 Room Air 05/15/17 21:42 153 05/15/17 21:41 149 24 89 05/15/17 21:37 58/37 Physical Exam GENERAL: Patient is an ill-appearing well-nourished female in acute distress HEAD: Normocephalic atraumatic EYES: Ocular movements intact pupils equal and react to light OROPHARYNX mucous membranes are moist no exudates present no erythema or edema present NECK: Supple no nuchal rigidity CHEST: Good equal expansion LUNGS: Clear and equal to auscultation CARDIAC: Normal S1 and S2 ABDOMEN: Soft tender RLQ + guarding BACK: No CVA tenderness EXTREMITIES: No pain upon palpation normal muscle strength in all groups no clubbing cyanosis or edema NEURO: Patient is not following commands and is inappropriately speaking. Cranial Nerves 2-12 grossly intact Medical Decision & Procedures ER Provider Diagnostic Interpretation: CT OF THE ABDOMEN AND PELVIS WITH CONTRAST CLINICAL HISTORY: Hypotension. Uterine cancer. COMPARISON STUDY: CT of the abdomen and pelvis March 22, 2017 and February 09, 2017. TECHNIQUE: Following IV administration of 116 mL of Optiray-320, axial images of the abdomen and pelvis were obtained from the lung bases to the proximal femurs. Images were reviewed in the axial, sagittal, and coronal planes. IV contrast was administered without complication. A dose lowering technique was utilized adhering to the principles of ALARA. FINDINGS: Innumerable hepatic metastases have markedly progressed since CT of March 22, 2017. Index segment 6/7 lesion measures 4.2 cm. Index segment 5 lesion measures 3.2 cm. A right-sided percutaneous nephrostomy tube is in place. There is no right hydronephrosis. Moderate right renal atrophy is noted. Multiple enlarged upper abdominal lymph nodes have mildly increased in size since CT of March 22, 2017. Index aortocaval lymph node measures 2 cm in short axis diameter. The gallbladder is surgically absent. There is no pancreatic ductal dilatation. There is no evidence for a bowel obstruction. Mild wall thickening of the sigmoid colon is noted. There is no pneumatosis, free air or portal venous gas. Note is again made of a large right pelvic wall/retroperitoneal mass with associated bony destruction of the right aspect of the sacrum and right iliac bone. This mass measures approximately 11.9 x 10 cm. There has been suspected slight decrease in size since exam of March 22, 2017. Interval development of a pathologic fracture of S1 is noted. This involves multiple right-sided neural foramen. There may be a pathologic fracture of the right iliac bone as well. Heterogeneity of additional skeletal structures may reflect diffuse skeletal metastases. As before, this mass occludes the right common iliac vein. This is unchanged. Suspected injection sites are noted within the subcutaneous tissues. IMPRESSION: 1. Innumerable hepatic metastases with marked progression since exam of March 22, 2017. 2. Moderate increase in size of multiple upper abdominal pathologic lymph nodes, including aortocaval lymph nodes with resultant significant narrowing of the IVC. 3. Large right pelvic sidewall/retroperitoneal mass with associated erosion of the right iliac bone and right aspect of the sacrum with associated S1 pathologic fracture and possible pathologic fracture of the right iliac bone. Overall, this mass has slightly decreased in size since March 22, 2017. 4. No bowel obstruction. Mild sigmoid colon wall thickening is likely due to underdistention although a nonspecific colitis could appear similar. 5. Small lytic lesions within skeletal structures which suggest skeletal metastases. Electronically signed by: Mirza Wright M.D. 05/16/2017 12:00 AM Dictated Date/Time: 05/15/2017 11:[address] ANGIOGRAPHY OF THE CHEST, PULMONARY EMBOLUS PROTOCOL CLINICAL HISTORY: Hypotension. Uterine cancer. COMPARISON STUDY: Chest CT March 22, 2017. TECHNIQUE: Following IV administration of 116 mL of Optiray-320, helical axial images of the chest were obtained utilizing the pulmonary embolus protocol. Maximal intensity projections and sagittal and coronal reformats were viewed on an independent 3D workstation. IV contrast was administered without complication. A dose lowering technique was utilized adhering to the principles of ALARA. CT DOSE: 1356.43 mGy.cm FINDINGS: No pulmonary emboli are identified although the segmental and subsegmental vessels are suboptimally assessed due to respiratory motion. There is no evidence of thoracic aortic dissection. The heart is mildly enlarged. A subcarinal lymph node has moderately increased in size since chest CT of March 22, 2017. This node measures 2.6 cm in short axis diameter. It previously measured 2 cm. Bilateral lower lobe opacities favor atelectasis. Innumerable hepatic metastases have markedly progressed since exam of March 22, 2017. IMPRESSION: 1. No pulmonary emboli identified although segmental and subsegmental pulmonary arteries suboptimally assessed due to respiratory motion. 2. Innumerable hepatic metastases with marked progression since CT of March 22, 2017. 3. Moderate increase in size of a subcarinal lymph nodes which suggests walter spread of disease. CT OF THE HEAD WITHOUT CONTRAST CLINICAL HISTORY: Altered mental status. Uterine cancer. COMPARISON STUDY: Head CT April 06, 2017. TECHNIQUE: Helical axial images of the head were obtained without IV contrast. Automated exposure control was utilized for the study. A dose lowering technique was utilized adhering to the principles of ALARA. FINDINGS: There has been interval development of a 1.4 cm round hyperdense focus with mild associated vasogenic edema within the left cerebellar hemisphere since head CT of April 06, 2017. There is a subtle 1.3 cm hyperdense focus within the right occipital lobe shown on image 15. Ventricular system is stable. Basilar cisterns are patent. There are no extra-axial collections. No significant calvarial abnormalities are present. There is trace fluid within the right mastoid air cells. IMPRESSION: 1. Interval development of a 1.4 cm hyperdense focus within the left cerebellar hemisphere with mild vasogenic edema since head CT of April 06, 2017. A hemorrhagic metastasis is favored. A small hematoma could appear similar. 2. Subtle 1.3 cm hyperdense focus within the right occipital lobe which favors an additional metastasis although minimal hemorrhage could appear similar. A short-term follow-up head CT or MRI might be considered. Electronically signed by: Mirza Wright M.D. 05/15/2017 10:49 PM Dictated Date/Time: 05/15/2017 10:30 PM CHEST ONE VIEW PORTABLE CLINICAL HISTORY: Sepsis. Uterine cancer. COMPARISON STUDY: Chest CT March 22, 2017. FINDINGS: A left subclavian [id number] is in place. There is no pneumothorax or pleural effusion. Mild left basilar opacity favors atelectasis. There is no evidence of pulmonary edema. No consolidation is identified to suggest pneumonia. Patient is rotated. IMPRESSION: 1. No acute cardiopulmonary findings. 2. Left basilar opacity which favors atelectasis. Electronically signed by: Mirza Wright M.D. 05/15/2017 10:44 PM Dictated Date/Time: 05/15/2017 10:40 PM Laboratory Results 05/15/17 21:50 Red Blood Count 3.14, Mean Corpuscular Volume 85.7, Mean Corpuscular Hemoglobin 28.0, Mean Corpuscular Hemoglobin Concent 32.7, Mean Platelet Volume 8.4, Neutrophils (%) (Auto) 82.9, Lymphocytes (%) (Auto) 11.1, Monocytes (%) (Auto) 5.7, Eosinophils (%) (Auto) 0.0, Basophils (%) (Auto) 0.0, Neutrophils # (Auto) 2.62, Lymphocytes # (Auto) 0.35, Monocytes # (Auto) 0.18, Eosinophils # (Auto) 0.00, Basophils # (Auto) 0.00 05/15/17 21:50 Test 05/15/17 21:33 05/15/17 21:50 05/15/17 21:54 05/15/17 21:55 White Blood Count 3.16 K/uL (4.8-10.8) Red Blood Count 3.14 M/uL (4.2-5.4) Hemoglobin 8.8 g/dL (12.0-16.0) Hematocrit 26.9 % (37-47) Mean Corpuscular Volume 85.7 fL (80-100) Mean Corpuscular Hemoglobin 28.0 pg (25-34) Mean Corpuscular Hemoglobin Concent 32.7 g/dl (32-36) Platelet Count 67 K/uL (130-400) Mean Platelet Volume 8.4 fL (7.4-10.4) Neutrophils (%) (Auto) 82.9 % Lymphocytes (%) (Auto) 11.1 % Monocytes (%) (Auto) 5.7 % Eosinophils (%) (Auto) 0.0 % Basophils (%) (Auto) 0.0 % Neutrophils # (Auto) 2.62 K/uL (1.4-6.5) Lymphocytes # (Auto) 0.35 K/uL (1.2-3.4) Monocytes # (Auto) 0.18 K/uL (0.11-0.59) Eosinophils # (Auto) 0.00 K/uL (0-0.5) Basophils # (Auto) 0.00 K/uL (0-0.2) RDW Standard Deviation 57.8 fL (36.4-46.3) RDW Coefficient of Variation 18.6 % (11.5-14.5) Immature Granulocyte % (Auto) 0.3 % Immature Granulocyte # (Auto) 0.01 K/uL (0.00-0.02) Nucleated RBC Absolute Count (auto) 0.02 K/uL (0-0) Nucleated Red Blood Cells % 0.5 % Toxic Granulation 1+ Platelet Estimate DECREASED Prothrombin Time 13.3 SECONDS (9.0-12.0) Prothromb Time International Ratio 1.2 (0.9-1.1) Activated Partial Thromboplast Time 52.3 SECONDS (21.0-31.0) Partial Thromboplastin Ratio 2.0 Heparin Anti-Xa Act, Low Molec Wt 0.77 IU/ML (0 - <0.10) Est Creatinine Clear Calc Drug Dose 56.3 ml/min Estimated GFR () 73.7 Estimated GFR (Non- 63.6 BUN/Creatinine Ratio 30.2 (10-20) Calcium Level 8.4 mg/dl (8.5-10.1) Total Bilirubin 0.7 mg/dl (0.2-1) Aspartate Amino Transf (AST/SGOT) 283 U/L (15-37) Alanine Aminotransferase (ALT/SGPT) 160 U/L (12-78) Alkaline Phosphatase 186 U/L (45-117) Total Creatine Kinase 298 U/L (26-192) Creatine Kinase MB 0.7 ng/ml (0.5-3.6) Creatine Kinase MB Ratio 0.2 (0-3.0) Troponin I < 0.015 ng/ml (0-0.045) Total Protein 5.5 gm/dl (6.4-8.2) Albumin 2.7 gm/dl (3.4-5.0) Globulin 2.8 gm/dl (2.5-4.0) Albumin/Globulin Ratio 1.0 (0.9-2) Bedside Glucose 130 mg/dl (70-90) Bedside Lactic Acid Venous 2.67 mmol/L (0.90-1.70) Test 05/15/17 21:58 05/15/17 22:30 Bedside Hemoglobin 8.2 g/dl (12.0-16.0) Bedside Hematocrit 24 % (37-47) Bedside Sodium 131 mEq/L (135-144) Bedside Potassium 4.4 mEq/L (3.3-5.0) Bedside Chloride 99 mEq/L (101-112) Bedside Total CO2 20 mEq/l (24-31) Anion Gap 17.0 mmol/L (16-25) Bedside Blood Urea Nitrogen 25 mg/dl (7-18) Bedside Creatinine 1.1 mg/dl (0.6-1.3) Bedside Glucose (other) 120 mg/dl (70-99) Bedside Ionized Calcium (Anna) 1.18 mmol/l (1.12-1.32) Influenza Type A Antigen Neg for Influ A (NEG) Influenza Type B Antigen Neg for Influ B (NEG) Medications Administered Medications (Trade) Dose Ordered Sig/Alivia Route Start Time Stop Time Status Last Admin Dose Admin Piperacillin Sod/ Tazobactam Sod (Zosyn Iv) 4.5 gm NOW STAT IV 05/15/17 21:38 05/15/17 21:40 DC 05/15/17 22:07 4.5 GM Levofloxacin (Levaquin / D5W) 750 mg NOW STAT IV 05/15/17 21:38 05/15/17 21:40 DC 05/15/17 22:04 750 MG Vancomycin HCl 1000 mg/Sodium Chloride 270 ml @ 125 mls/hr NOW STAT IV 05/15/17 21:38 05/15/17 23:47 DC 05/15/17 22:40 125 MLS/HR Sodium Chloride 1,000 ml @ 999 mls/hr Q1H1M STAT IV 05/15/17 21:38 05/15/17 22:38 DC 05/15/17 21:38 999 MLS/HR Sodium Chloride 500 ml @ 999 mls/hr Q31M STAT IV 05/15/17 21:45 05/15/17 22:15 DC 05/15/17 22:42 999 MLS/HR Sodium Chloride 150 ml @ 999 mls/hr Q10M STAT IV 05/15/17 21:45 05/15/17 21:54 DC 05/15/17 21:45 999 MLS/HR Hydromorphone HCl (Dilaudid Inj) 0.5 mg NOW STAT IV 05/15/17 21:50 05/15/17 21:51 DC 05/15/17 22:04 0.5 MG Ondansetron HCl (Zofran Inj) 4 mg NOW STAT IV 05/15/17 21:50 05/15/17 21:51 DC 05/15/17 22:03 4 MG Norepinephrine Bitartrate 8 mg/ Dextrose 508 ml @ 0 mls/hr Q0M STAT IV 05/15/17 21:50 05/15/17 21:51 DC 05/15/17 23:46 5 MLS/HR Acetaminophen 100 ml @ 400 mls/hr NOW STAT IV 05/15/17 21:53 05/15/17 22:07 DC 05/15/17 22:04 400 MLS/HR Sodium Chloride 150 ml @ 999 mls/hr Q10M STAT IV 05/15/17 22:18 05/15/17 22:27 DC 05/15/17 22:18 999 MLS/HR Diphenhydramine HCl (Benadryl Inj) 50 mg NOW STAT IV 05/15/17 22:24 05/15/17 22:26 DC 05/15/17 23:56 12.5 MG Sodium Chloride 500 ml @ 999 mls/hr Q31M STAT IV 05/15/17 22:31 05/15/17 23:01 DC 05/15/17 22:42 999 MLS/HR Dexamethasone Sodium Phosphate (Decadron Inj) 10 mg NOW STAT IV 05/15/17 22:53 05/15/17 22:54 DC 05/15/17 22:56 10 MG ECG Indication: weakness Rate (beats per minute): 150 Rhythm: normal sinus Findings: no acute ischemic change, no ectopy ED Course 2131: Past medical records reviewed. The patient was evaluated in room C4. A complete history and physical examination was performed. Medical Decision This is a 57-year-old female who presents emergency department and septic shock. The patient is febrile hypotensive and tachycardic. Due to these findings a septic alert was immediately initiated. The patient was given 30 mL' s per kilogram. She was found to have an elevation in her lactic acid. She was immediate was started on broad-spectrum antibiotic including Zosyn and Levaquin and vancomycin. Due to the septic nature the patient and her hemoglobin only being 8 she was typed and crossed for 2 units of packed red blood cells. as the patient became more resuscitated she became more alert and oriented. Due to the fact the patient was altered she was sent for CAT scan of the head. She was also hypoxic and there was therefore sent for CAT scan of the chest and due to the patient's tenderness she was sent for CAT scan of the abdomen and pelvis. I will note that the patient missed her dose of Lovenox today. I had a lengthy discussion over the patient's prognosis as I'm very concerned she is critically ill. Due to the areas of hemorrhaging in the patient's head I strongly recommended that the patient be transferred to [place]. After some discussion with the family as well as the patient they were in agreement with this. The patient was given 10 mg of Decadron due to the edema. I then discussed the case with Dr. Meza who was on-call for the ICU in [place] as well as Dr. Davidson on-call for neurosurgery. The patient was transferred via [facility]. She was given 1 packed unit of packed red blood cells in the emergency department. Medication Reconcilliation Current Medication List: was personally reviewed by me Blood Pressure Screening Patient's blood pressure: Low blood pressure Impression Primary Impression: Sepsis Additional Impressions: Anemia Thrombocytopenia Intracranial hemorrhage Critical Care I have personally spent greater than 90 minutes of critical care time in the direct management of this patient. This includes bedside care, interpretation of diagnostic studies, and testing, discussion with consultants, patient, and family members, and other required patient management activities. This 90 minutes is in excess of all separately billable procedures. Scribe Attestation The scribe's documentation has been prepared under my direction and personally reviewed by me in its entirety. I confirm that the note above accurately reflects all work, treatment, procedures, and medical decision making performed by me. Departure Information Referrals Romario Gaspar M.D. (PCP) Patient Instructions My [facility] Problem Qualifiers Primary Impression: Sepsis Sepsis type: sepsis due to unspecified organism Qualified Codes: A41.9 - Sepsis, unspecified organism Additional Impressions: Anemia Anemia type: unspecified type Qualified Codes: D64.9 - Anemia, unspecified
[2017-05-16 01:20] LABS: INFLUENZA A PCR Neg for Influ A (NEG); INFLUENZA B PCR Neg for Influ B (NEG)
== END 2017-05-16 00:18 | disposition short-term general hospital (02) ==
LOC: EDBD 21:16 → C.EDC 21:17 → C.EDB 05-16 00:18
DX: A41.9 Sepsis, unspecified organism (principal); R65.21 Severe sepsis with septic shock; I62.9 Nontraumatic intracranial hemorrhage, unspecified; D64.9 Anemia, unspecified; D69.6 Thrombocytopenia, unspecified; I10 Essential (primary) hypertension; E11.9 Type 2 diabetes mellitus without complications; K21.9 Gastro-esophageal reflux disease without esophagitis; K58.9 Irritable bowel syndrome, unspecified; Z86.718 Personal history of other venous thrombosis and embolism; Z85.89 Personal history of malignant neoplasm of other organs and systems; Z90.49 Acquired absence of other specified parts of digestive tract; Z98.890 Other specified postprocedural states; Z98.51 Tubal ligation status; Z79.84 Long term (current) use of oral hypoglycemic drugs; Z79.899 Other long term (current) drug therapy; Z80.9 Family history of malignant neoplasm, unspecified; Z83.79 Family history of other diseases of the digestive system; Z82.49 Family history of ischemic heart disease and other diseases of the circulatory system; Z84.1 Family history of disorders of kidney and ureter